=== PATIENT | male | born 1935 | race Caucasian/White ===

== ENCOUNTER 2016-10-23 14:21 | Inpatient (IN) | payer MEDICARE, MEDICAID ==
[2016-10-23] MEDS ORDERED: HYDROmorphone 2 MG/ML SDV IVPUSH ONE (14:28)
[2016-10-23] MEDS ORDERED: Albuterol/Ipratropium 3.0-0.5 MG/3 ML Neb Soln NEB ONE (14:28)
[2016-10-23] MEDS ORDERED: methylPREDNISolone Sodium Succinate 125 MG/2 ML SDV IVPUSH ONE (14:28)
[2016-10-23] MEDS: Sodium Chloride 0.9% 1,000 ML IV SCH (14:37)
[2016-10-23] MEDS ORDERED: Ondansetron 4 MG/2 ML SDV IVPUSH ONE (14:56)
--- NOTE | 2016-10-23 15:42 | EDM.PDOC ---
ED HISTORY OF PRESENT ILLNESS - General Chief Complaint: Respiratory Problem Stated Complaint: COPD Time Seen by Provider: 10/23/16 14:30 Source: Reports: Patient, EMS History Limitations: Reports: Altered mental status, Physical impairment, Respiratory distress - History of Present Illness INITIAL COMMENTS - FREE TEXT/NARRATIVE: 81 y.o.w.m with a h/o COPD was seen in the clinic and sent to the ed due to sob and RUQ abd. pain. 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 O2 wass 88% on RA. No family is present. Pt is able to talk 3 baldwin sentences. No C/P. Symptom Onset Date: 10/23/16 Symptom Onset Time: 03:00 Timing/Duration: Reports: Hour(s):, Day(s):, Getting worse, Gradual onset Severity: moderate Location, General: Reports: chest Quality: Reports: Sharp (RUQ abd. pain) Improves with: Reports: Medication Worsens with: Reports: Eating Associated Symptoms: Reports: cough, diaphoresis - Related Data Allergies/ADRs: Allergies Allergy/AdvReac Type Severity Reaction Status Date / Time aspirin Allergy Cannot Verified 10/23/16 16:40 Remember Home Meds: Home Meds Albuterol/Ipratropium [DuoNeb 3.0-0.5 MG/3 ML] 1 each INH QID 09/26/13 [History] Brinzolamide [Azopt 1% Ophth Susp] 1 drop EYELF BID 09/26/13 [History] Dutasteride [Avodart] 0.5 mg PO BEDTIME 09/26/13 [History] Metoprolol Succinate 25 mg PO DAILY 09/26/13 [History] Mirtazapine [Remeron] 15 mg PO BEDTIME 09/26/13 [History] Simvastatin 20 mg PO BEDTIME 09/26/13 [History] Travoprost [Travatan Z 0.004% Ophth Soln] 1 drop EYEBOTH BEDTIME 09/26/13 [ History] Triamterene/Hydrochlorothiazid [Triamterene-HCTZ 75-50 MG] 1 tab PO DAILY [History] Potassium Chloride [Klor-Con 10] 10 meq PO DAILY #30 tab.er 09/30/13 [Rx] Budesonide [Pulmicort] 0.5 mg IH BID 02/12/15 [History] Furosemide [Lasix] 80 mg PO DAILY 04/10/15 [History] Losartan Potassium [Cozaar] 100 mg PO DAILY 04/10/15 [History] Acetaminophen [Tylenol] 650 mg PO BEDTIME 10/23/16 [History] Ascorbate Calcium [Vitamin C] 500 mg PO DAILY 10/23/16 [History] Benzonatate 100 mg PO TID 10/23/16 [History] Dextromethorphan/guaiFENesin [Robitussin DM] 5 ml PO Q4H PRN 10/23/16 [History] Diclofenac Sodium [Voltaren 1% Gel] 1 applic TID 10/23/16 [History] Docusate Sodium [Colace] 100 mg PO DAILY 10/23/16 [History] Docusate Sodium [Colace] 200 mg PO BEDTIME 10/23/16 [History] Polyethylene Glycol 3350 [MiraLAX] 17 gm PO DAILY PRN 10/23/16 [History] amLODIPine [Norvasc] 5 mg PO DAILY 10/23/16 [History] busPIRone [Buspar] 5 mg PO BID 10/23/16 [History] Acetaminophen [Tylenol] 650 mg PO Q4H PRN 10/24/16 [History] Mag Hydrox/Al Hydrox/Simeth [Alum-Mag Hydroxide-Simeth Liq] 15 ml PO Q4H PRN 11/07 [History] Multivitamin with Minerals [Multivitamins with Minerals] 1 tab PO DAILY [History] Past Medical History Other HEENT History: both eyes done. pt wears glassess. Other Respiratory History: COLLASPSED LUNG YEARS AGO. Other Musculoskeletal History: GENERALIZED ARTHRITIS - Past Surgical History Other Musculoskeletal Surgeries/Procedures:: RIGHT HIP DONE Social & Family History - Tobacco Use Smoking Status *Q: Former Smoker Years of Tobacco use: 20 Packs/Tins Daily: 0.5 Used Tobacco, but Quit: Yes Month Tobacco Last Used: umnknown Second Hand Smoke Exposure: No - Alcohol Use Days Per Week of Alcohol Use: 0 Number of Drinks Per Day: 1 Total Drinks Per Week: 0 - Recreational Drug Use Recreational Drug Use: No - Living Situation & Occupation Living situation: Reports: Occupation: retired ED ROS GENERAL - Review of Systems Review Of Systems: Unable To Obtain ED EXAM, GENERAL - Physical Exam Exam: See Below Exam Limited By: Respiratory distress General Appearance: alert, moderate distress, obese Ears: normal external exam, normal canal, hearing grossly normal, normal TMs Ear Exam: bilateral ear: auricle normal, canal normal, TM normal Nose: normal inspection, normal mucosa, no blood Throat/Mouth: Other (dry mucosal membrane) Head: atraumatic, normocephalic Neck: normal inspection, supple, non-tender, full range of motion Respiratory/Chest: respiratory distress, decreased breath sounds, rhonchi, accessory muscle use, retractions, prolonged expiration Cardiovascular: normal peripheral pulses, regular rate, rhythm, no edema, no JVD GI/Abdominal: tender (RUQ of abdomen) (Male) Exam: No hernia, Deferred Rectal (Males) Exam: Deferred Back Exam: normal inspection, full range of motion Extremities: normal inspection, normal range of motion, non-tender Neurological: alert, CN II-XII intact, confused Psychiatric: normal affect, normal mood Skin Exam: Warm, Dry, Intact, Normal color, No rash Lymphatic: no adenopathy EKG INTERPRETATION EKG Date: 10/23/16 Time: 16:05 Rhythm: NSR Rate (beats/min): 91 [place]: normal P-wave: present QRS: normal ST-T: normal QT: normal Comparison: NA - no prior EKG Course - Vital Signs Text/Narrative:: 81 y.o.w.m with a h/o COPD was seen in the clinic and sent to the ed due to sob and RUQ abd. pain. 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 O2 wass 88% on RA. No family is present. Pt is able to talk 3 baldwin sentences. No C/P. Pt is on 3 liter home O2. Paper say DNR/DNI. Pt requested full code however at this time. Labs: WBC 23K Nl LFT no left shift Imaging: CXR port. Infiltrate ves scar tissue RLL of lung. 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 Impression: COPD exacerbation, RUQ abd. pain(severe), Chronic bronchitis, Infiltrate RLL of lung vs scar tissue. Leucytosis Tx: Duoneb, Solumedrol, Dilaudid 1 mg, Zofran, O2 4 liters, Normal Saline Consultation: Dr. Hunt, Hospitalist accepted the pt for admission Plan: Admit to M/S tele Last Recorded V/S: Last Vital Signs Temp 36.7 C 10/24/16 19:57 Pulse 73 10/24/16 19:57 Resp 19 10/24/16 19:57 BP 107/52 L 10/24/16 19:57 Pulse Ox 96 10/24/16 19:57 - Orders/Labs/Meds Orders: Medication Orders Acetaminophen (Tylenol Extra Strength) 1,000 mg PO Q8H PRN PRN Reason: Pain Last Admin: 10/24/16 13:37 Dose: 1,000 mg Admin: 10/23/16 22:50 Dose: 1,000 mg Al Hydroxide/Mg Hydroxide (Mag-Al Susp) 15 ml PO Q4H PRN PRN Reason: epigastric discomfort Albuterol/Ipratropium (Duoneb 3.0-0.5 Mg/3 Ml) 3 ml NEB Q4H PRN PRN Reason: Dyspnea Last Admin: 10/24/16 13:58 Dose: 3 ml Albuterol/Ipratropium (Duoneb 3.0-0.5 Mg/3 Ml) 3 ml INH QIDRT [facility] Last Admin: 10/24/16 15:15 Dose: 3 ml Admin: 10/24/16 11:00 Dose: 3 ml Admin: 10/24/16 08:32 Dose: 3 ml Amlodipine Besylate (Norvasc) 5 mg PO DAILY [facility] Last Admin: 10/24/16 08:57 Dose: 5 mg Benzonatate (Tessalon Perles) 100 mg PO TID PRN PRN Reason: Cough Last Admin: 10/24/16 12:48 Dose: 100 mg Budesonide (Pulmicort) 0.5 mg INH BID [facility] Last Admin: 10/24/16 08:34 Dose: 0.5 mg Admin: 10/23/16 21:16 Dose: 0.5 mg Buspirone HCl (Buspar) 5 mg PO BID [facility] Docusate Sodium (Colace) 200 mg PO BEDTIME [facility] Dorzolamide HCl (Trusopt 2% Ophth Soln) 0 ml EYELF BID [facility] Last Admin: 10/24/16 08:57 Dose: 1 drop Dutasteride (Avodart) 0.5 mg PO BEDTIME [facility] Last Admin: 10/23/16 22:04 Dose: 0.5 mg Furosemide (Lasix) 80 mg PO Q48H [facility] Guaifenesin/Phenylephrine HCl (Robitussin Dm) 5 ml PO Q4H PRN PRN Reason: Cough Last Admin: 10/24/16 13:37 Dose: 5 ml Admin: 10/23/16 23:26 Dose: 5 ml Sodium Chloride (Normal Saline) 1,000 mls @ 125 mls/hr IV ASDIRECTED [facility] Last Admin: 10/24/16 16:13 Dose: 125 mls/hr Infusion: 10/24/16 16:13 Dose: 125 mls/hr Admin: 10/24/16 08:32 Dose: 125 mls/hr Infusion: 10/24/16 08:20 Dose: 125 mls/hr Admin: 10/24/16 00:20 Dose: 125 mls/hr Infusion: 10/23/16 22:37 Dose: 125 mls/hr Admin: 10/23/16 14:37 Dose: 125 mls/hr Ceftriaxone Sodium 1 gm/ (Sodium Chloride) 50 mls @ 100 mls/hr IV Q24H [facility] Last Admin: 10/24/16 19:49 Dose: 100 mls/hr Azithromycin 500 mg/ Sodium (Chloride) 250 mls @ 250 mls/hr IV Q24H [facility] Stop: 10/25/16 19:59 Last Admin: 10/24/16 18:30 Dose: 250 mls/hr Losartan Potassium (Cozaar) 100 mg PO DAILY [facility] Last Admin: 10/24/16 08:56 Dose: 100 mg Methylprednisolone Sodium Succinate (Solu-Medrol) 125 mg IVPUSH Q8H [facility] Last Admin: 10/24/16 16:09 Dose: 125 mg Admin: 10/24/16 08:56 Dose: 125 mg Admin: 10/23/16 23:27 Dose: 125 mg Admin: 10/23/16 19:08 Dose: Not Given Metoprolol Succinate (Toprol Xl) 25 mg PO DAILY [facility] Last Admin: 10/24/16 08:57 Dose: 25 mg Mirtazapine (Remeron) 15 mg PO BEDTIME [facility] Last Admin: 10/23/16 21:13 Dose: 15 mg Potassium Chloride (Klor-Con 10) 10 meq PO DAILY [facility] Last Admin: 10/24/16 08:56 Dose: 10 meq Simvastatin (Zocor) 20 mg PO BEDTIME [facility] Last Admin: 10/23/16 21:14 Dose: 20 mg Sodium Chloride (Saline Flush) 10 ml FLUSH ASDIRECTED PRN PRN Reason: Keep Vein Open Travoprost (Travatan Z 0.004% Ophth Soln) 0 ml EYEBOTH BEDTIME [facility] Last Admin: 10/23/16 22:05 Dose: 1 drop Triamterene/HCTZ (Maxzide 50-75 Mg) 1 each PO DAILY [facility] Last Admin: 10/24/16 08:56 Dose: 1 each Labs: Laboratory Tests 10/23/16 10/23/16 10/23/16 Range/Units 14:40 14:40 14:40 WBC 23.8 H (4.5-12.0) X10-3/uL RBC 4.91 (4.30-5.75) x10(6)uL Hgb 13.1 (11.5-15.5) g/dL Hct 40.8 (30.0-51.3) % MCV 83.1 (80-96) fL MCH 26.6 L (27.7-33.6) pg MCHC 32.0 L (32.2-35.4) g/dL RDW 14.4 (11.5-15.5) % Plt Count 227 (125-369) X10(3)uL MPV 8.1 (7.4-10.4) fL Add Manual Diff Yes Neutrophils % (Manual) 83 H (46-82) % Band Neutrophils % 3 (0-6) % Lymphocytes % (Manual) 5 L (13-37) % Monocytes % (Manual) 9 (4-12) % Sodium 137 (135-145) mmol/L Potassium 4.1 (3.5-5.3) mmol/L Chloride 89 L* (100-110) mmol/L Carbon Dioxide 40 H* (23-29) mmol/L BUN 52 H (8-23) mg/dL Creatinine 1.5 H (0.6-1.3) mg/dL Est Cr Clr Drug Dosing TNP Estimated GFR (MDRD) 45 L (>60) BUN/Creatinine Ratio 34.7 H (9-20) Glucose 132 H (80-116) mg/dL Lactic Acid 1.4 (0.5-2.2) mmol/L Calcium 9.8 (8.6-10.2) mg/dL Total Bilirubin 0.6 (0.1-1.3) mg/dL Direct Bilirubin 0.1 (0.1-0.2) mg/dL AST 25 D (5-27) IU/L ALT 18 D (14-26) IU/L Alkaline Phosphatase 80 (56-112) IU/L Troponin I (0.02-0.06) NG/ML Total Protein 7.7 (6.0-8.0) g/dL Albumin 4.0 (3.2-4.6) g/dL Amylase 36 (28-100) U/L 10/23/16 Range/Units 14:40 WBC (4.5-12.0) X10-3/uL RBC (4.30-5.75) x10(6)uL Hgb (11.5-15.5) g/dL Hct (30.0-51.3) % MCV (80-96) fL MCH (27.7-33.6) pg MCHC (32.2-35.4) g/dL RDW (11.5-15.5) % Plt Count (125-369) X10(3)uL MPV (7.4-10.4) fL Add Manual Diff Neutrophils % (Manual) (46-82) % Band Neutrophils % (0-6) % Lymphocytes % (Manual) (13-37) % Monocytes % (Manual) (4-12) % Sodium (135-145) mmol/L Potassium (3.5-5.3) mmol/L Chloride (100-110) mmol/L Carbon Dioxide (23-29) mmol/L BUN (8-23) mg/dL Creatinine (0.6-1.3) mg/dL Est Cr Clr Drug Dosing Estimated GFR (MDRD) (>60) BUN/Creatinine Ratio (9-20) Glucose (80-116) mg/dL Lactic Acid (0.5-2.2) mmol/L Calcium (8.6-10.2) mg/dL Total Bilirubin (0.1-1.3) mg/dL Direct Bilirubin (0.1-0.2) mg/dL AST (5-27) IU/L ALT (14-26) IU/L Alkaline Phosphatase (56-112) IU/L Troponin I 0.02 (0.02-0.06) NG/ML Total Protein (6.0-8.0) g/dL Albumin (3.2-4.6) g/dL Amylase (28-100) U/L Meds: Medications Generic Name Dose Route Start Last Admin Trade Name Freq PRN Reason Stop Dose Admin Acetaminophen 1,000 mg 10/23/16 17:36 10/24/16 13:37 Tylenol Extra Strength PO 1,000 mg Q8H PRN Administration Pain Al Hydroxide/Mg Hydroxide 15 ml 10/24/16 15:21 Mag-Al Susp PO Q4H PRN epigastric discomfort Albuterol/Ipratropium 3 ml 10/23/16 19:21 10/24/16 13:58 Duoneb 3.0-0.5 Mg/3 Ml NEB 3 ml Q4H PRN Administration Dyspnea Albuterol/Ipratropium 3 ml 10/24/16 08:00 10/24/16 15:15 Duoneb 3.0-0.5 Mg/3 Ml INH 3 ml QIDRT [facility] Administration Amlodipine Besylate 5 mg 10/24/16 09:00 10/24/16 08:57 Norvasc PO 5 mg DAILY [facility] Administration Benzonatate 100 mg 10/23/16 17:36 10/24/16 12:48 Tessalon Perles PO 100 mg TID PRN Administration Cough Budesonide 0.5 mg 10/23/16 21:00 10/24/16 08:34 Pulmicort INH 0.5 mg BID [facility] Administration Buspirone HCl 5 mg 10/24/16 21:00 Buspar PO BID [facility] Docusate Sodium 200 mg 10/24/16 21:00 Colace PO BEDTIME [facility] Dorzolamide HCl 0 ml 10/24/16 09:00 10/24/16 08:57 Trusopt 2% Ophth Soln EYELF 1 drop BID [facility] Administration Dutasteride 0.5 mg 10/23/16 21:00 10/23/16 22:04 Avodart PO 0.5 mg BEDTIME [facility] Administration Furosemide 80 mg 10/25/16 09:00 Lasix PO Q48H [facility] Guaifenesin/Phenylephrine HCl 5 ml 10/23/16 22:57 10/24/16 13:37 Robitussin Dm PO 5 ml Q4H PRN Administration Cough Sodium Chloride 1,000 mls @ 125 mls/hr 10/23/16 14:30 10/24/16 16:13 Normal Saline IV 125 mls/hr ASDIRECTED [facility] Administration Ceftriaxone Sodium 1 gm/ 50 mls @ 100 mls/hr 10/24/16 20:00 10/24/16 19:49 Sodium Chloride IV 100 mls/hr Q24H [facility] Administration Azithromycin 500 mg/ Sodium 250 mls @ 250 mls/hr 10/24/16 19:00 10/24/16 18: 30 Chloride IV 10/25/16 19:59 250 mls/hr Q24H [facility] Administration Losartan Potassium 100 mg 10/24/16 09:00 10/24/16 08:56 Cozaar PO 100 mg DAILY [facility] Administration Methylprednisolone Sodium Succinate 125 mg 10/23/16 16:15 10/24/16 16:09 Solu-Medrol IVPUSH 125 mg Q8H [facility] Administration Metoprolol Succinate 25 mg 10/24/16 09:00 10/24/16 08:57 Toprol Xl PO 25 mg DAILY [facility] Administration Mirtazapine 15 mg 10/23/16 21:00 10/23/16 21:13 Remeron PO 15 mg BEDTIME [facility] Administration Potassium Chloride 10 meq 10/24/16 09:00 10/24/16 08:56 Klor-Con 10 PO 10 meq DAILY [facility] Administration Simvastatin 20 mg 10/23/16 21:00 10/23/16 21:14 Zocor PO 20 mg BEDTIME [facility] Administration Sodium Chloride 10 ml 10/23/16 16:09 Saline Flush FLUSH ASDIRECTED PRN Keep Vein Open Travoprost 0 ml 10/23/16 21:00 10/23/16 22:05 Travatan Z 0.004% Ophth Soln EYEBOTH 1 drop BEDTIME [facility] Administration Triamterene/HCTZ 1 each 10/24/16 09:00 10/24/16 08:56 Maxzide 50-75 Mg PO 1 each DAILY [facility] Administration Discontinued Medications Generic Name Dose Route Start Last Admin Trade Name Freq PRN Reason Stop Dose Admin Albuterol 2.5 mg 10/23/16 16:15 10/23/16 22:29 Proventil Neb Soln NEB Not Given Q4H [facility] Albuterol/Ipratropium 3 ml 10/23/16 14:28 10/23/16 14:30 Duoneb 3.0-0.5 Mg/3 Ml NEB 10/23/16 14:29 3 ml ONETIME ONE Administration Albuterol/Ipratropium ml 10/23/16 21:00 Duoneb 3.0-0.5 Mg/3 Ml INH QID [facility] Albuterol/Ipratropium 3 ml 10/23/16 21:00 10/23/16 21:15 Duoneb 3.0-0.5 Mg/3 Ml INH 3 ml QID [facility] Administration Amlodipine Besylate 10 mg 10/24/16 09:00 Norvasc PO DAILY [facility] Azithromycin Confirm 10/23/16 18:55 10/23/16 19:15 Zithromax Administered 10/23/16 18:56 Not Given Dose 500 mg IV .STK-MED ONE Brinzolamide 0 ml 10/23/16 21:00 10/23/16 22:14 Azopt 1% Ophth Susp EYELF Not Given BID [facility] Docusate Sodium 200 mg 10/23/16 17:36 10/23/16 22:51 Colace PO 200 mg BID PRN Administration Constipation Furosemide 80 mg 10/24/16 09:00 Lasix PO DAILY [facility] Hydromorphone HCl 1 mg 10/23/16 14:28 10/23/16 14:40 Dilaudid IVPUSH 10/23/16 14:29 1 mg ONETIME ONE Administration Azithromycin 500 mg/ Sodium 250 mls @ 250 mls/hr 10/23/16 17:34 10/23/16 18: 59 Chloride IV 10/23/16 18:33 250 mls/hr ONETIME ONE Administration Ceftriaxone Sodium 1 gm/ 50 mls @ 100 mls/hr 10/23/16 18:00 10/23/16 20:43 Sodium Chloride IV 100 mls/hr Q24H [facility] Administration Methylprednisolone Sodium Succinate 125 mg 10/23/16 14:28 10/23/16 14:42 Solu-Medrol IVPUSH 10/23/16 14:29 125 mg ONETIME ONE Administration Non-Formulary Medication 2 puff 10/23/16 17:36 Albuterol/Ipratropium [Combivent] INH BID PRN Dyspnea Non-Formulary Medication 2 each 10/23/16 21:00 10/23/16 23:17 Guaifenesin/Dextromethorphan [Mucinex Dm Er 1,200-60 Mg] PO Not Given BID [facility] Ondansetron HCl 8 mg 10/23/16 14:56 10/23/16 15:27 Zofran IVPUSH 10/23/16 14:57 8 mg ONETIME ONE Administration Pantoprazole Sodium 40 mg 10/23/16 16:52 10/23/16 18:55 Protonix Iv IVPUSH 10/23/16 16:53 40 mg ONETIME ONE Administration Pantoprazole Sodium Confirm 10/23/16 18:58 10/23/16 19:15 Protonix Iv Administered 10/23/16 18:59 Not Given Dose 40 mg .ROUTE .STK-MED ONE Pseudoephedrine HCl 120 mg 10/23/16 17:36 Sudafed 12 Hour PO BID PRN Congestion Departure - Departure Time of Disposition: 20:11 Disposition: Admitted As Inpatient 66 Condition: fair Clinical Impression: COPD (chronic obstructive pulmonary disease) Qualifiers: COPD type: COPD with acute exacerbation Qualified Code(s): J44.1 - Chronic obstructive pulmonary disease with (acute) exacerbation
--- NOTE | 2016-10-23 15:45 | CR ---
INDICATION: Short of breath, COPD. CHEST: AP portable upright view of the chest was obtained. Poor inspiration emphasizes the markings, which are somewhat heavy in the mid lung pepe and lung bases, especially on the right, making it difficult to exclude patchy bronchopneumonia in those areas. However, a definite consolidating pneumonia or effusion was not seen. The heart appeared enlarged, but is emphasized by the poor inspiration. The aorta is tortuous with calcification in the arch. Dextroconcave scoliosis upper middle thoracic spine is noted of mild degree. The lungs appear to be somewhat hyperaerated, raising question of COPD. IMPRESSION: 1. Heavy markings emphasized by poor inspiration mid lung field on the right and both lung bases make it difficult to exclude areas of patchy bronchopneumonia. Full inspiration PA and lateral views recommended when clinically possible for further evaluation. 2. ASHD. 3. Probable COPD. Report was given by phone to Dr. Matta at 1525 hours, 10/23/2016. MTDD
[2016-10-23] MEDS ORDERED: Sodium Chloride 0.9% 10 ML Syringe FLUSH PRN (16:09)
[2016-10-23] MEDS ORDERED: Albuterol 0.083% 2.5 MG/3 ML Neb Soln NEB SCH (16:15)
[2016-10-23] MEDS ORDERED: Pantoprazole 40 MG Vial IVPUSH ONE (16:52)
[2016-10-23] MEDS ORDERED: Azithromycin 500 MG in Sodium Chloride 0.9% 250 ML IV ONE (17:34)
[2016-10-23] MEDS ORDERED: Pseudoephedrine 120 MG Tab.ER PO PRN (17:36)
[2016-10-23] MEDS ORDERED: Non-Formulary Medication 1 Each (Albuterol/Ipratropium [Combivent] 2 PUFF) INH PRN (17:36)
[2016-10-23] MEDS ORDERED: Docusate Sodium 100 MG Cap PO PRN (17:36)
--- NOTE | 2016-10-23 17:46 | PCM.HP ---
H&P History of Present Illness - General Date of Service: 10/23/16 Admit Problem/Dx: Admission Diagnosis/Problem Admission Diagnosis/Problem COPD, Moderate chronic obstructive pulmonary disease Source of Information: Patient History Limitations: Reports: No limitations - History of Present Illness Initial Comments - Free Text/Narative: This is an 81-year-old male patient that is a resident of [facility] in [facility] [place]. He states he's had 3-4 day history of upper abdominal pain, shortness of breath, green and or orange sputum when he coughs. He's tried some cough medicine and that hasn't helped. He states he is only short of breath and uses oxygen. He denies having COPD. He denies chest pain, fevers , chills, ear pain, sore throat. He denies nausea, vomiting, hematochezia, melena, diarrhea. He states he is alert hospitably he moved his bowels this morning. - Related Data Allergies/Adverse Reactions: Allergies Allergy/AdvReac Type Severity Reaction Status Date / Time aspirin Allergy Cannot Verified 10/23/16 16:40 Remember Home Medications: Home Meds Acetaminophen [Acetaminophen Extra Strength] 1,000 mg PO Q8HR PRN 09/26/13 [ History] Albuterol/Ipratropium [Combivent] 2 puff INH BID PRN 09/26/13 [History] Albuterol/Ipratropium [DuoNeb 3.0-0.5 MG/3 ML] 1 each INH QID 09/26/13 [History] Brinzolamide [Azopt 1% Ophth Susp] 1 drop EYELF BID 09/26/13 [History] Dutasteride [Avodart] 0.5 mg PO BEDTIME 09/26/13 [History] Metoprolol Succinate 25 mg PO DAILY 09/26/13 [History] Mirtazapine [Remeron] 15 mg PO BEDTIME 09/26/13 [History] Simvastatin 20 mg PO BEDTIME 09/26/13 [History] Travoprost [Travatan Z 0.004% Ophth Soln] 1 drop EYEBOTH BEDTIME 09/26/13 [ History] Triamterene/Hydrochlorothiazid [Triamterene-HCTZ 75-50 MG] 1 tab PO DAILY [History] amLODIPine [Norvasc] 10 mg PO DAILY 09/26/13 [History] Benzonatate [Tessalon Perles] 100 mg PO TID PRN #30 cap 09/30/13 [Rx] Docusate Sodium [Colace] 200 mg PO BID PRN #0 09/30/13 [Rx] Potassium Chloride [Klor-Con 10] 10 meq PO DAILY #30 tab.er 09/30/13 [Rx] Budesonide [Pulmicort] 0.5 mg IH BID 02/12/15 [History] Cefdinir [Omnicef] 300 mg PO BID #10 cap 04/10/15 [Rx] Cefdinir [Omnicef] 300 mg PO BID #28 cap 04/10/15 [Rx] Furosemide [Lasix] 80 mg PO DAILY 04/10/15 [History] Losartan Potassium [Cozaar] 100 mg PO DAILY 04/10/15 [History] Pseudoephedrine HCl [Pseudoephedrine ER] 120 mg PO BID PRN #28 tablet.er [Rx] guaiFENesin/Dextromethorphan [Mucinex DM ER 1,200-60 MG] 2 each PO BID #40 tbmp.12hr 04/10/15 [Rx] predniSONE [Prednisone] 20 mg PO DAILY 04/10/15 [History] predniSONE [Prednisone] 20 mg PO DAILY #14 tablet 04/10/15 [Rx] Past Medical History HEENT History: Reports: Cataract, Glaucoma Other HEENT History: both eyes done. pt wears glassess. Cardiovascular History: Reports: High cholesterol, Hypertension Respiratory History: Reports: COPD Other Respiratory History: COLLASPSED LUNG YEARS AGO. Genitourinary History: Reports: BPH, Prostate disorder Musculoskeletal History: Reports: Arthritis Other Musculoskeletal History: GENERALIZED ARTHRITIS Endocrine/Metabolic History: Reports: None Dermatologic History: Reports: Other (see below) Other Dermatologic History: Hx of skin ulcers to coccyx recently - Past Surgical History Other Musculoskeletal Surgeries/Procedures:: RIGHT HIP DONE Social & Family History - Tobacco Use Smoking Status *Q: Former Smoker Years of Tobacco use: 20 Packs/Tins Daily: 0.5 Used Tobacco, but Quit: Yes Month Tobacco Last Used: umnknown Second Hand Smoke Exposure: No - Caffeine Use Caffeine Use: Reports: Coffee - Alcohol Use Days Per Week of Alcohol Use: 0 Number of Drinks Per Day: 1 Total Drinks Per Week: 0 - Recreational Drug Use Recreational Drug Use: No - Living Situation & Occupation Living situation: Reports: Occupation: retired H&P Review of Systems - Review of Systems: Review Of Systems: See Below General: Reports: no symptoms HEENT: Reports: no symptoms Pulmonary: Reports: shortness of breath, cough, sputum. Denies: wheezing, pleuritic chest pain Cardiovascular: Reports: no symptoms Gastrointestinal: Reports: Abdominal pain, Constipation. Denies: Black stool, Bloody stool, Diarrhea, Hematochezia, Melena, Vomiting Genitourinary: Reports: no symptoms Musculoskeletal: Reports: no symptoms Skin: Reports: no symptoms Psychiatric: Reports: no symptoms Neurological: Reports: no symptoms Hematologic/Lymphatic: Reports: no symptoms Immunologic: Reports: no symptoms Exam - Exam Exam: See Below - Vital Signs Vital Signs: Last Vital Signs Temp 100.0 F 10/23/16 15:32 Pulse 89 10/23/16 15:32 Resp 28 H 10/23/16 15:32 BP 108/68 10/23/16 15:32 Pulse Ox 92 L 10/23/16 15:32 Weight: 225 lb - Exam Quality Assessment: supplemental oxygen General: alert, oriented, cooperative HEENT: PERRLA, Conjunctiva clear, EACs clear, EOMI, Hearing intact, Mucosa moist & pink, Posterior pharynx clear, TMs clear Neck: supple, trachea midline. No: carotid bruit Lungs: Normal respiratory effort, Rales (Right base). No: Decreased breath sounds Cardiovascular: regular rate, regular rhythm. No: normal S1, normal S2, systolic murmur, diastolic murmur Abdomen: soft, organomegaly, tenderness (Epigastrium left upper quadrant), absent bowel sounds. No: guarding, rigidity, rebound Back Exam: normal inspection, full range of motion, NT Extremities: normal inspection. No: edema Skin: warm, dry, intact Neuro Extensive - Mental Status: alert, oriented x3, normal mood/affect, normal cognition Psychiatric: alert, normal affect, normal mood - Patient Data Result Diagrams: 10/23/16 14:40 10/23/16 14:40 *Q Meaningful Use (ADM) - VTE *Q VTE Criteria *Q: - Stroke *Q Stroke Criteria *Q: - AMI *Q AMI Criteria *Q: - Problem List (1) Abdominal pain SNOMED Code(s): 83789220 ICD Code: R10.9 - UNSPECIFIED ABDOMINAL PAIN Status: Acute Current Visit : Yes (2) COPD exacerbation SNOMED Code(s): 111899065, 932957525 ICD Code: J44.1 - CHRONIC OBSTRUCTIVE PULMONARY DISEASE W (ACUTE) EXACERBATION Status: Acute Priority: High Current Visit: No Problem Details: Patient has done well with methylprednisolone tapering. switch over to prednisone and continue taper. SVN and inhalers continue. Has been faithful with Insentive Spirometry. Continues on O2Nc and dyspnec with exertion improving. States will feel better when he gets home and sees his friends. Continue PPI due to steroids for GI protection. (3) Pneumonia, bacterial SNOMED Code(s): 32994598 ICD Code: J15.9 - UNSPECIFIED BACTERIAL PNEUMONIA Status: Acute Priority : High Current Visit: No Problem Details: Switch to oral to complete 10 course per renal function. Problem List Initiated/Reviewed/Updated: Yes Orders Last 24hrs: Active Orders 24 hr Category Date Time Status Telemetry Monitoring [Cardiac Monitoring] [RC] .As Care 10/23/16 16:55 Active Directed Clear Liquid Diet [DIET] Diet 10/23/16 Breakfast Ordered ABG [BLOOD GAS ARTERIAL] [BG] Routine Lab 10/23/16 17:39 Ordered CBC WITH AUTO DIFF [HEME] AM Lab 10/24/16 05:11 Ordered COMPREHENSIVE METABOLIC PN,CMP [CHEM] AM Lab 10/24/16 05:11 Ordered CULTURE BLOOD [BC] Urgent Lab 10/23/16 17:39 Ordered CULTURE BLOOD [BC] Urgent Lab 10/23/16 17:39 Ordered CULTURE SPUTUM + SMEAR [RM] Routine Lab 10/23/16 17:40 Uncollected Acetaminophen [Tylenol Extra Strength] Med 10/23/16 17:36 Ordered 1,000 mg PO Q8HR PRN Albuterol [Proventil Neb Soln] Med 10/23/16 16:15 Active 2.5 mg NEB Q4H Albuterol/Ipratropium [Combivent] Med 10/23/16 17:36 Ordered 2 puff INH BID PRN Albuterol/Ipratropium [DuoNeb 3.0-0.5 MG/3 ML] Med 10/23/16 21:00 Ordered 1 each INH QID Azithromycin [Zithromax] 500 mg Med 10/23/16 17:34 Ordered Sodium Chloride 0.9% [Normal Saline] 250 ml IV ONETIME Benzonatate [Tessalon Perles] Med 10/23/16 17:36 Ordered 100 mg PO TID PRN Brinzolamide [Azopt 1% Ophth Susp] Med 10/23/16 21:00 Ordered 1 drop EYELF BID Budesonide [Pulmicort] Med 10/23/16 21:00 Ordered 0.5 mg INH BID Docusate Sodium [Colace] Med 10/23/16 17:36 Ordered 200 mg PO BID PRN Dutasteride [Avodart] Med 10/23/16 21:00 Ordered 0.5 mg PO BEDTIME Furosemide [Lasix] Med 10/24/16 09:00 Ordered 80 mg PO DAILY HCTZ/Triamterene [Maxzide 50-75 MG] Med 10/24/16 09:00 Ordered 1 tab PO DAILY Losartan [Cozaar] Med 10/24/16 09:00 Ordered 100 mg PO DAILY Metoprolol Succinate [Toprol XL] Med 10/24/16 09:00 Ordered 25 mg PO DAILY Mirtazapine [Remeron] Med 10/23/16 21:00 Ordered 15 mg PO BEDTIME Potassium Chloride [Klor-Con 10] Med 10/24/16 09:00 Ordered 10 meq PO DAILY Pseudoephedrine [Sudafed 12 Hour] Med 10/23/16 17:36 Ordered 120 mg PO BID PRN Simvastatin [Zocor] Med 10/23/16 21:00 Ordered 20 mg PO BEDTIME Travoprost [Travatan Z 0.004% Ophth Soln] Med 10/23/16 21:00 Ordered 1 drop EYEBOTH BEDTIME amLODIPine [Norvasc] Med 10/24/16 09:00 Ordered 10 mg PO DAILY cefTRIAXone [Rocephin] 1 gm Med 10/23/16 18:00 Ordered Sodium Chloride 0.9% [Normal Saline] 50 ml IV Q24H guaiFENesin/Dextromethorphan [Mucinex DM ER 1,200-60 MG Med 10/23/16 21:00 Ordered ] 2 each PO BID methylPREDNISolone Sod Succ [Solu-MEDROL] Med 10/23/16 16:15 Active 125 mg IVPUSH Q8H Blood Culture x2 Reflex Set [OM.PC] Urgent Oth 10/23/16 17:38 Ordered Medication Orders Acetaminophen (Tylenol Extra Strength) 1,000 mg PO Q8HR PRN PRN Reason: Pain Albuterol (Proventil Neb Soln) 2.5 mg NEB Q4H MARGARET Albuterol/Ipratropium (Duoneb 3.0-0.5 Mg/3 Ml) ml INH QID MARGARET Amlodipine Besylate (Norvasc) 10 mg PO DAILY MARGARET Benzonatate (Tessalon Perles) 100 mg PO TID PRN PRN Reason: Cough Brinzolamide (Azopt 1% Ophth Susp) ml EYELF BID MARGARET Budesonide (Pulmicort) 0.5 mg INH BID MARGARET Dutasteride (Avodart) 0.5 mg PO BEDTIME MARGARET Furosemide (Lasix) 80 mg PO DAILY MARGARET Sodium Chloride (Normal Saline) 1,000 mls @ 125 mls/hr IV ASDIRECTED MARGARET Last Admin: 10/23/16 14:37 Dose: 125 mls/hr Azithromycin 500 mg/ Sodium (Chloride) 250 mls @ 250 mls/hr IV ONETIME ONE Stop: 10/23/16 18:33 Ceftriaxone Sodium 1 gm/ (Sodium Chloride) 50 mls @ 100 mls/hr IV Q24H [facility] Losartan Potassium (Cozaar) 100 mg PO DAILY [facility] Methylprednisolone Sodium Succinate (Solu-Medrol) 125 mg IVPUSH Q8H [facility] Metoprolol Succinate (Toprol Xl) 25 mg PO DAILY [facility] Mirtazapine (Remeron) 15 mg PO BEDTIME MARGARET Non-Formulary Medication (Albuterol/Ipratropium [Combivent]) 2 puff INH BID PRN PRN Reason: Dyspnea Non-Formulary Medication (Docusate Sodium [Colace]) 200 mg PO BID PRN PRN Reason: Constipation Non-Formulary Medication (Guaifenesin/Dextromethorphan [Mucinex Dm Er 1,200-60 Mg]) 2 each PO BID MARGARET Potassium Chloride (Klor-Con 10) 10 meq PO DAILY MARGARET Pseudoephedrine HCl (Sudafed 12 Hour) 120 mg PO BID PRN PRN Reason: Congestion Simvastatin (Zocor) 20 mg PO BEDTIME MARGARET Sodium Chloride (Saline Flush) 10 ml FLUSH ASDIRECTED PRN PRN Reason: Keep Vein Open Travoprost (Travatan Z 0.004% Ophth Soln) ml EYEBOTH BEDTIME MARGARET Triamterene/HCTZ (Maxzide 50-75 Mg) each PO DAILY MARGARET Assessment/Plan Comment:: 1. Admit the patient to telemetry and inpatient. 2. Solu-Medrol, Rocephin, Zithromax, blood cultures, sputum cultures. 3. Continue most of his home meds. 4. Nebulizer treatments every 4 hours and when necessary. 5. O2 to keep saturations between 88-92 percent. 6. ABGs. 7. Clear liquids
[2016-10-23] MEDS ORDERED: cefTRIAXone 1 GM in Sodium Chloride 0.9% 50 ML IV SCH (18:00)
[2016-10-23] MEDS ORDERED: Albuterol/Ipratropium 3.0-0.5 MG/3 ML Neb Soln NEB SCH (18:00)
[2016-10-23] MEDS ORDERED: Azithromycin 500 MG AdvVial IV ONE (18:55)
[2016-10-23] MEDS ORDERED: Pantoprazole 40 MG Vial ONE (18:58)
[2016-10-23] MEDS: methylPREDNISolone Sodium Succinate 125 MG/2 ML SDV IVPUSH SCH ×2 (19:08→23:27)
[2016-10-23] MEDS ORDERED: Albuterol/Ipratropium 3.0-0.5 MG/3 ML Neb Soln INH SCH ×2 (21:00)
[2016-10-23] MEDS: Mirtazapine 15 MG Tab PO SCH (21:13)
[2016-10-23] MEDS: Simvastatin 20 MG Tab PO SCH (21:14)
[2016-10-23] MEDS: Budesonide 0.5 MG/2 ML Neb Susp INH SCH (21:16)
[2016-10-23] MEDS: Dutasteride 0.5 MG Cap PO SCH (22:04)
[2016-10-23] MEDS: Acetaminophen 500 MG Tab PO PRN (22:50)
[2016-10-23] MEDS: guaiFENesin/Dextromethorphan 100-10 MG/5 ML Soln 5 ML Cup PO PRN (23:26)
[2016-10-24] MEDS: Sodium Chloride 0.9% 1,000 ML IV SCH ×3 (00:20→16:13)
[2016-10-24] MEDS: Albuterol/Ipratropium 3.0-0.5 MG/3 ML Neb Soln INH SCH ×4 (08:32→20:17)
[2016-10-24] MEDS: Budesonide 0.5 MG/2 ML Neb Susp INH SCH ×2 (08:34→20:17)
[2016-10-24] MEDS: Losartan 100 MG Tab PO SCH (08:56)
[2016-10-24] MEDS: methylPREDNISolone Sodium Succinate 125 MG/2 ML SDV IVPUSH SCH ×3 (08:56→23:49)
[2016-10-24] MEDS: Potassium Chloride 10 MEQ Tab.ER PO SCH (08:56)
[2016-10-24] MEDS: Hydrochlorothiazide/Triamterene 50-75 MG Tab PO SCH (08:56)
[2016-10-24] MEDS: Metoprolol Succinate 25 MG Tab.ER PO SCH (08:57)
[2016-10-24] MEDS: amLODIPine 5 MG Tab PO SCH (08:57)
[2016-10-24] MEDS: Dorzolamide 2% Ophth Soln 10 ML Bottle EYELF SCH ×2 (08:57→20:18)
[2016-10-24] MEDS ORDERED: Furosemide 80 MG Tab PO SCH (09:00)
[2016-10-24] MEDS ORDERED: amLODIPine 10 MG Tab PO SCH (09:00)
--- NOTE | 2016-10-24 12:27 | PN ---
DATE SEEN: 10/24/2016 SUBJECTIVE: This is an 81-year-old male with a longstanding history of oxygen- dependent COPD and recent diagnosis of pneumonia, who is seen today for followup. He has noticed some mild improvement in his respiratory discomfort. He is coughing up large amount of yellow orange sputum. He is complaining because he does not think he has a right glasses. He says these were bifocals and when I pointed out that he does in fact have bifocals lot. He agreed that they probably wears glasses. He is concerned because he was not getting much to eat and is hungry and says he cannot eat any bread; however, because he is trying to lose weight. Denies any fever, chills, or hemoptysis. He has had no chest pain. Denies any nausea, vomiting, or diarrhea. MEDICATIONS: Reviewed. ALLERGIES: Reviewed all of which are accurate. OBJECTIVE: GENERAL: He appears to be in no acute distress. VITAL SIGNS: He is now afebrile. Blood pressure 107/50, pulse is 85, and regular respirations were 16 and unlabored, O2 saturation was 95% and he is getting 3 L of oxygen. HEENT: Unremarkable. Mucous membranes are pink and moist. There is no jugular venous distention. CHEST: Revealed a prolonged expiratory phase bilaterally with a few crackles at both bases and occasional end-expiratory wheeze was noted bilaterally, but this was cleared with cough. CARDIOVASCULAR: Revealed a normal S1 and S2 with a regular rhythm. He has a grade 2/6 systolic ejection murmur heard best at the right upper sternal border that extends along the left sternal border. ABDOMEN: Obese, soft, with healed incisional scars. There is no rebound or rigidity. Bowel sounds are normal. No bruits were appreciated. EXTREMITIES: Without clubbing. At this time, no edema. He has varus deformity of both knees without effusion, erythema, or warmth. NEUROLOGICAL: He is intact, although a bit irritable. IMPRESSION: 1. Bibasilar pneumonia with history of chronic obstructive pulmonary disease that is currently oxygen dependent. 2. Previous history of constipation. 3. History of benign prostatic hypertrophy. 4. History of hypertension, complicated by a mild congestive heart failure. 5. History of increased irritability and insomnia with depression. PLAN: We will continue to his current antibiotic regime along with his IV methylprednisolone, decrease his oxygen intake and monitor his sats closely. His blood work today is improved. His white count has come down to 21,200. There are no further bands. His electrolytes look good. His creatinine has risen to 1.8, BUN of 61, and he is getting IV fluids at 125 an hour. We will watch and wait. His blood gas today revealed CO2 to come down from 77 yesterday to 67 today and his O2 has risen from 53 yesterday to 69, bicarbonate is down to 33. We will continue to monitor his white count, electrolytes, and kidney function and increase his diet and follow from there. /[id number] WM/MODL
[2016-10-24] MEDS: Benzonatate 100 MG Cap PO PRN (12:48)
[2016-10-24] MEDS: guaiFENesin/Dextromethorphan 100-10 MG/5 ML Soln 5 ML Cup PO PRN ×2 (13:37→22:36)
[2016-10-24] MEDS: Acetaminophen 500 MG Tab PO PRN ×2 (13:37→22:35)
[2016-10-24] MEDS: Albuterol/Ipratropium 3.0-0.5 MG/3 ML Neb Soln NEB PRN (13:58)
[2016-10-24] MEDS ORDERED: Aluminum Hydroxide/Magnesium Hydroxide Susp 30 ML Cup PO PRN (15:21)
[2016-10-24] MEDS: Azithromycin 500 MG in Sodium Chloride 0.9% 250 ML IV SCH (18:30)
[2016-10-24] MEDS: cefTRIAXone 1 GM in Sodium Chloride 0.9% 50 ML IV SCH (19:49)
[2016-10-24] MEDS: Docusate Sodium 100 MG Cap PO SCH (20:16)
[2016-10-24] MEDS: Dutasteride 0.5 MG Cap PO SCH (20:16)
[2016-10-24] MEDS: busPIRone 5 MG Tab PO SCH (20:16)
[2016-10-24] MEDS: Mirtazapine 15 MG Tab PO SCH (20:17)
[2016-10-24] MEDS: Simvastatin 20 MG Tab PO SCH (20:18)
[2016-10-24] MEDS ORDERED: Docusate Sodium 100 MG Cap PO SCH (21:00)
[2016-10-25] MEDS: Sodium Chloride 0.9% 1,000 ML IV SCH ×3 (01:57→17:35)
[2016-10-25] MEDS: Albuterol/Ipratropium 3.0-0.5 MG/3 ML Neb Soln INH SCH ×4 (07:07→20:43)
[2016-10-25] MEDS: Budesonide 0.5 MG/2 ML Neb Susp INH SCH ×2 (07:08→20:43)
[2016-10-25] MEDS: methylPREDNISolone Sodium Succinate 125 MG/2 ML SDV IVPUSH SCH ×3 (08:12→23:56)
[2016-10-25] MEDS: Potassium Chloride 10 MEQ Tab.ER PO SCH (08:13)
[2016-10-25] MEDS: Losartan 100 MG Tab PO SCH (08:13)
[2016-10-25] MEDS: busPIRone 5 MG Tab PO SCH ×2 (08:13→20:42)
[2016-10-25] MEDS: Furosemide 80 MG Tab PO SCH (08:14)
[2016-10-25] MEDS: Hydrochlorothiazide/Triamterene 50-75 MG Tab PO SCH (08:15)
[2016-10-25] MEDS: amLODIPine 5 MG Tab PO SCH (08:15)
[2016-10-25] MEDS: Metoprolol Succinate 25 MG Tab.ER PO SCH (08:16)
[2016-10-25] MEDS: Dorzolamide 2% Ophth Soln 10 ML Bottle EYELF SCH ×2 (08:16→20:44)
[2016-10-25] MEDS ORDERED: amLODIPine 5 MG Tab PO SCH (09:00)
--- NOTE | 2016-10-25 10:05 | PN ---
DATE SEEN: 10/25/2016 SUBJECTIVE: This is an 81-year-old gentleman with a history of severe COPD and bilateral pneumonia, seen today for followup, continues to gradually improve. His cough is less, says his chest tightness is less and he is feeling better. His appetite is improving. He says, he is still coughing up some orange colored sputum, but it is gradually improving. He denies any actual chest pain. No hemoptysis. No abdominal discomfort. He is perturbed by the fact that he had oxygen monitoring throughout the night and would like to have that removed. OBJECTIVE: GENERAL: He appears to be comfortable, alert, and in no acute distress. VITAL SIGNS: Afebrile. Blood pressure today is 143/71, pulse is 87 and regular, and O2 saturation is running 96% on 2 L. HEENT: Unremarkable. Mucous membranes are now pink and moist. NECK: There is no jugular venous distention. LUNGS: He has bibasilar crackles, but no expiratory wheezes. No rales, no tachypnea. CARDIOVASCULAR: Reveals a normal S1 and S2 with a soft systolic ejection murmur heard best at the right upper sternal border. ABDOMEN: Soft, obese; but nontender without organomegaly or masses. He has no peripheral edema that I can identify or for the areas there was just minimal. EXTREMITIES: Peripheral pulses are present and equal. The feet were warm to touch. He denies any foot pain at this time. LABORATORY DATA: Followup white count is down to 20,600, hemoglobin is 10.6, hematocrit of 33, and platelets are 199,000. Electrolytes were normal. His creatinine has dropped to 1.4 and BUN is 66. His glucose was 173. IMPRESSION: Severe chronic obstructive pulmonary disease with bibasilar pneumonia, gradually improving; elevated fasting glucose presumed secondary to the methylprednisolone, history of BPH, history of hypertension, and history of anxiety. PLAN: We will make no changes in his medications. Continue the azithromycin along with the ceftriaxone and the methylprednisolone. Continue his DuoNeb inhalations treatments and we will discontinue the continuous O2 saturation monitor and per his request increased activity and proceed from there. /[id number] WM/MODL
[2016-10-25] MEDS: Benzonatate 100 MG Cap PO PRN (12:21)
[2016-10-25] MEDS: Azithromycin 500 MG in Sodium Chloride 0.9% 250 ML IV SCH (18:44)
[2016-10-25] MEDS: cefTRIAXone 1 GM in Sodium Chloride 0.9% 50 ML IV SCH (20:00)
[2016-10-25] MEDS: Dutasteride 0.5 MG Cap PO SCH (20:42)
[2016-10-25] MEDS: Docusate Sodium 100 MG Cap PO SCH (20:43)
[2016-10-25] MEDS: Simvastatin 20 MG Tab PO SCH (20:44)
[2016-10-25] MEDS: Mirtazapine 15 MG Tab PO SCH (20:44)
[2016-10-25] MEDS: guaiFENesin/Dextromethorphan 100-10 MG/5 ML Soln 5 ML Cup PO PRN (22:42)
[2016-10-26] MEDS: Albuterol/Ipratropium 3.0-0.5 MG/3 ML Neb Soln NEB PRN (01:33)
[2016-10-26] MEDS: Sodium Chloride 0.9% 1,000 ML IV SCH ×2 (03:18→11:01)
[2016-10-26] MEDS: Benzonatate 100 MG Cap PO PRN ×2 (04:18→13:43)
[2016-10-26] MEDS: Budesonide 0.5 MG/2 ML Neb Susp INH SCH ×2 (07:10→20:34)
[2016-10-26] MEDS: Albuterol/Ipratropium 3.0-0.5 MG/3 ML Neb Soln INH SCH ×4 (07:10→20:34)
[2016-10-26] MEDS: busPIRone 5 MG Tab PO SCH ×2 (08:02→20:33)
[2016-10-26] MEDS: Losartan 100 MG Tab PO SCH (08:02)
[2016-10-26] MEDS: Potassium Chloride 10 MEQ Tab.ER PO SCH (08:03)
[2016-10-26] MEDS: amLODIPine 5 MG Tab PO SCH (08:03)
[2016-10-26] MEDS: Metoprolol Succinate 25 MG Tab.ER PO SCH (08:03)
[2016-10-26] MEDS: Dorzolamide 2% Ophth Soln 10 ML Bottle EYELF SCH ×2 (08:03→20:35)
[2016-10-26] MEDS: Hydrochlorothiazide/Triamterene 50-75 MG Tab PO SCH (08:03)
[2016-10-26] MEDS: methylPREDNISolone Sodium Succinate 125 MG/2 ML SDV IVPUSH SCH (08:05)
[2016-10-26] MEDS: Acetaminophen 500 MG Tab PO PRN ×2 (08:07→20:36)
[2016-10-26] MEDS ORDERED: Psyllium 0.52 GM Cap PO SCH (09:15)
[2016-10-26] MEDS ORDERED: Magnesium Hydroxide 400 MG/5 ML Susp 30 ML Cup PO PRN (09:43)
[2016-10-26] MEDS ORDERED: Psyllium Husk Powder Sugar Free 5.85 GM Packet ONE (11:01)
[2016-10-26] MEDS ORDERED: Psyllium Husk Powder Sugar Free 5.85 GM Packet PO ONE (11:15)
[2016-10-26] MEDS ORDERED: Sodium Phosphate,Monobasic/Sodium Phosphate,Dibasic Enema 133 ML Bottle RECTAL PRN (11:50)
[2016-10-26] MEDS ORDERED: Bisacodyl 10 MG Supp RECTAL ONE (11:50)
--- NOTE | 2016-10-26 12:40 | PN ---
DATE SEEN: 10/26/2016 SUBJECTIVE: This 81-year-old gentleman is seen today for followup of his bilateral pneumonia, chronic obstructive pulmonary disease, BPH, hypertension, congestive heart failure, glaucoma, and anxiety with depression. Actually, he is doing somewhat better. Continues to cough even it is rather harsh but gradually improving. He has remained afebrile and says his appetite is improved. His energy level has been slowly improving. He is able to walk now without significant hypoxia. His cough remains minimally productive, but it is gradually improving. His only concern is constipation. He says he has not had a bowel movement for a couple of days and was hoping to get some Metamucil for that. His other medications were reviewed, allergies were reviewed; all of which are accurate. OBJECTIVE: GENERAL: He appears to be quite comfortable at this time and in no acute distress. VITAL SIGNS: Afebrile. Blood pressure 137/55, pulse is 85, it is slightly irregular, and O2 saturation is 97% on 2 L. HEENT: Unremarkable. Mucous membranes were pink and moist. There is no jugular venous distention. CHEST: Revealed bibasilar crackles posteriorly, anteriorly it was clear. No wheezes were noted. CARDIOVASCULAR: Revealed a normal S1 and S2 with a systolic ejection murmur heard best at the right upper sternal border that is unchanged. ABDOMEN: Soft, obese, and nontender without organomegaly or masses. EXTREMITIES: Without clubbing. No edema, ulcerations, or areas of breakdown. DIAGNOSTIC DATA: Sputum culture grew out Haemophilus influenza, sensitive to pretty much everything. IMPRESSION: 1. Haemophilus flu pneumonia, bilaterally. 2. Benign prostatic hypertrophy. 3. History of chronic obstructive pulmonary disease. 4. Hypertension with history of congestive heart failure. 5. Constipation. PLAN: He has finished his course of azithromycin. We will continue his IV ceftriaxone at least for now. I am going to discontinue the methylprednisolone, switch him over to oral prednisone 20 mg b.i.d., and will wean from that as improvement continues. We will start on Metamucil and milk of magnesia was also ordered for constipation. If that does not work, we can advance from there. Continue to gradually increase activity and wean from oxygen. Recheck panel eight and CBC in the morning. /[id number] WM/MODL
[2016-10-26] MEDS ORDERED: predniSONE 20 MG Tab PO ONE (18:00)
[2016-10-26] MEDS: cefTRIAXone 1 GM in Sodium Chloride 0.9% 50 ML IV SCH (19:46)
[2016-10-26] MEDS: Dutasteride 0.5 MG Cap PO SCH (20:33)
[2016-10-26] MEDS: Docusate Sodium 100 MG Cap PO SCH (20:33)
[2016-10-26] MEDS: Mirtazapine 15 MG Tab PO SCH (20:35)
[2016-10-26] MEDS: Simvastatin 20 MG Tab PO SCH (20:36)
[2016-10-26] MEDS: guaiFENesin/Dextromethorphan 100-10 MG/5 ML Soln 5 ML Cup PO PRN (21:57)
[2016-10-27] MEDS: Sodium Chloride 0.9% 1,000 ML IV SCH (00:09)
[2016-10-27] MEDS: Albuterol/Ipratropium 3.0-0.5 MG/3 ML Neb Soln INH SCH ×4 (07:18→21:12)
[2016-10-27] MEDS: Budesonide 0.5 MG/2 ML Neb Susp INH SCH ×2 (07:18→21:15)
[2016-10-27] MEDS ORDERED: predniSONE 10 MG Tab PO SCH (08:00)
[2016-10-27] MEDS: Metoprolol Succinate 25 MG Tab.ER PO SCH (08:10)
[2016-10-27] MEDS: Potassium Chloride 10 MEQ Tab.ER PO SCH (08:11)
[2016-10-27] MEDS: Dorzolamide 2% Ophth Soln 10 ML Bottle EYELF SCH ×2 (08:11→21:06)
[2016-10-27] MEDS: busPIRone 5 MG Tab PO SCH ×2 (08:11→21:05)
[2016-10-27] MEDS: Losartan 100 MG Tab PO SCH (08:11)
[2016-10-27] MEDS: Hydrochlorothiazide/Triamterene 50-75 MG Tab PO SCH (08:11)
[2016-10-27] MEDS: Furosemide 80 MG Tab PO SCH (08:11)
[2016-10-27] MEDS: amLODIPine 5 MG Tab PO SCH (08:11)
[2016-10-27] MEDS: Psyllium Husk Powder Sugar Free 5.85 GM Packet PO SCH ×2 (08:12→15:30)
[2016-10-27] MEDS: Amoxicillin/Clavulanate K 500-125 MG Tab PO SCH ×2 (10:37→21:07)
--- NOTE | 2016-10-27 12:12 | PN ---
DATE SEEN: 10/27/2016 SUBJECTIVE: This 81-year-old male with a history of oxygen-dependent COPD, seen today for followup of his Haemophilus flu pneumonia bilaterally. His cough continues to improve. His wheezing continues to improve. He still is quite dyspneic with exertion and does drop his O2 saturations with exertion, but at rest, his sats are actually quite good and is on 2 L. he says his cough is becoming less and less productive. He has had no fever, chills, or night sweats. Denies any abdominal pain. He has had no other complaints or concerns. He is taking his medications as noted and allergies are noted. OBJECTIVE: VITAL SIGNS: He remains afebrile. Blood pressure 144/72, pulse is 74 and regular, respirations were 16 and unlabored, and O2 saturation on 2 L is 97%. HEENT: Unremarkable. Mucous membranes are slightly pale, but otherwise negative. CHEST: Reveals some persistent posterior crackles at the bases, but these are gradually improving. No expiratory wheezes. No tachypnea. CARDIOVASCULAR: Revealed a normal S1 and S2 with a soft systolic ejection murmur along the right and left sternal border. ABDOMEN: Unremarkable except for obesity. EXTREMITIES: Without clubbing, just a trace edema was noted about his ankle, otherwise was unremarkable. LABORATORY DATA: Today revealed a hemoglobin of 10.8, hematocrit of 34.3, MCV was 84.4, white count down to 14,900, was persistent left shift, no bands. Electrolytes were normal. His creatinine is improved to 1.1, BUN of 49, glucose was 119. Blood cultures were negative. IMPRESSION: 1. Haemophilus flu pneumonia with oxygen-dependent chronic obstructive pulmonary disease. 2. History of benign prostatic hypertrophy. 3. Constipation, improved. PLAN: I am going to switch him over to oral Augmentin 500 mg p.o. q.12 hours with food. Discontinue the ceftriaxone and start weaning him from his prednisone and increase his activities. [place] States where he currently lives, he has requested we obtain a PT/OT consult to make sure he is able to be in a basic care on situation and will continue to walk him with his oxygen. /[id number] 1200 WM/MODL
[2016-10-27] MEDS: predniSONE 5 MG Tab PO SCH ×2 (12:54→17:42)
[2016-10-27] MEDS: Dutasteride 0.5 MG Cap PO SCH (21:04)
[2016-10-27] MEDS: Docusate Sodium 100 MG Cap PO SCH (21:04)
[2016-10-27] MEDS: Mirtazapine 15 MG Tab PO SCH (21:05)
[2016-10-27] MEDS: Simvastatin 20 MG Tab PO SCH (21:07)
[2016-10-28] MEDS: Budesonide 0.5 MG/2 ML Neb Susp INH SCH (08:02)
[2016-10-28] MEDS: Albuterol/Ipratropium 3.0-0.5 MG/3 ML Neb Soln INH SCH ×2 (08:02→11:11)
[2016-10-28] MEDS: predniSONE 5 MG Tab PO SCH (08:47)
[2016-10-28] MEDS: Psyllium Husk Powder Sugar Free 5.85 GM Packet PO SCH (08:48)
[2016-10-28] MEDS: busPIRone 5 MG Tab PO SCH (08:49)
[2016-10-28] MEDS: Losartan 100 MG Tab PO SCH (08:49)
[2016-10-28] MEDS: Potassium Chloride 10 MEQ Tab.ER PO SCH (08:51)
[2016-10-28] MEDS: Metoprolol Succinate 25 MG Tab.ER PO SCH (08:52)
[2016-10-28] MEDS: amLODIPine 5 MG Tab PO SCH (08:52)
[2016-10-28] MEDS: Hydrochlorothiazide/Triamterene 50-75 MG Tab PO SCH (08:52)
[2016-10-28] MEDS: Amoxicillin/Clavulanate K 500-125 MG Tab PO SCH (08:53)
[2016-10-28] MEDS: Dorzolamide 2% Ophth Soln 10 ML Bottle EYELF SCH (08:53)
[2016-10-28 12:00] VITALS: BP 151/70
--- NOTE | 2016-10-28 12:29 | PN ---
DATE SEEN: 10/28/2016 SUBJECTIVE: This 81-year-old gentleman is seen today for followup of his bilateral H flu pneumonia along with oxygen-dependent COPD, BPH, arteriosclerotic heart disease with some congestive heart failure and glaucoma. Continues to improve. He says his cough has almost totally resolved. He has had no fever. Appetite has been good. He has been stooling well. Chest pain, shortness of breath was noted with exertion. His saturations do drop with activities, but when sitting at 2 L/minute, his saturations remained at 95%. He is tolerating the medications well. He has had no diarrhea. Denies any other complaints or concerns. PT/OT is looked at him, they do not feel he has any specific needs. OBJECTIVE: GENERAL: He has remained afebrile. VITAL SIGNS: Blood pressure 155/68, pulse is 79 and regular, O2 saturation is 98% on 2 L. However when he walks, it will drop down to 88%. HEENT: Unremarkable and unchanged. There is no jugular venous distention. A few crackles remain at both bases, but these were almost totally cleared. There were no retractions. No tachypnea. CARDIOVASCULAR: Revealed a normal S1, S2 with a systolic ejection murmur heard best at the right upper sternal border. Regular rhythm was noted. ABDOMEN: Obese but soft and nontender without organomegaly or masses. EXTREMITIES: Showed no clubbing, just a trace edema was noted about his ankles. No ulcerations or areas of breakdown. IMPRESSION: 1. Bilateral lower lobe pneumonia, improving, secondary to Haemophilus influenzae. 2. Oxygen-dependent chronic obstructive pulmonary disease. 3. Hypertension. 4. Glaucoma. 5. History of benign prostatic hypertrophy. 6. History of constipation, improved. PLAN: At this point, we will discharge him back to [facility]. He is in basic care there and will be up and about. We will continue his walking program. They will probably have to increase his oxygen to 3 L when he is up and about and when at rest, he can drop down to 2 L. A followup appointment was recommended in couple weeks to see his regular physician for a repeat chest x- ray. He will stay on the Augmentin for seven more days and continue his nebulizer therapies as an outpatient. If there are problems or other difficulties arise, they will let us know when he can return. /[id number] /MANI
--- NOTE | 2016-10-29 13:18 | DISCH ---
DISCHARGE DATE: 10/28/2016 REASON FOR ADMISSION: This 81-year-old male, resident of [facility] in [place], [place], was admitted with a 3-4 day history of increasing cough, shortness of breath, right upper abdominal discomfort. He was brought to the emergency room because of increased sputum production. He was found to have bibasilar pneumonia with elevated white count and some mild hypoxemia. He was, therefore, admitted for more aggressive therapy. He has a previous history of oxygen dependent COPD, glaucoma, hypertension, anxiety, and mild depression. Also a previous history of CHF. Please see a copy of the H and P for further details. HOSPITAL COURSE: The patient was admitted. Sputum and blood cultures were obtained, and he was started on aggressive nebulizer treatments along with Rocephin and azithromycin and IV Solu-Medrol. Eventually, his white count dropped from an admission of 23,800. He became afebrile, and his sputum grew out Haemophilus influenzae. With the above-mentioned treatment, his cough gradually improved. His hypoxemia improved, eventually IV antibiotics were discontinued, and he was switched over to Augmentin 500 mg p.o. q.12 hours with food as the Haemophilus influenza was sensitive to it, and PT/OT was consulted and they felt that he was strong enough to be up and about and well enough to go back to [facility] without difficulty. As his cough improved, his appetite improved, he was sleeping better. Activity is improved, and he has been up and about now. His saturations at rest on 2 L are usually around 95%. He does dropped to below 88% when he is with activity, but if he increases oxygen flow at 3-4 L, it stays at 90% or above with activity, and he has actually done very well. He had some problems with constipation, but that is improved with the use of Metamucil on daily basis, and he has proved to be much more comfortable. Again, he has remained afebrile, and his cough was almost totally resolved. He will continue his antibiotic therapy and follow up with his regular physician in a couple of weeks. FINAL DIAGNOSES: 1. Bibasilar pneumonia secondary to Haemophilus influenzae. 2. Oxygen dependent chronic obstructive pulmonary disease, that is severe. 3. History of hypertension. 4. History of congestive heart failure. 5. History of glaucoma. 6. Benign prostatic hypertrophy. 7. Intermittent constipation. DISCHARGE MEDICATIONS: DuoNebs q.i.d.; prednisone 15 mg b.i.d. for the next four days then 10 mg b.i.d. for five days, 5 mg b.i.d. for five days, then 5 mg daily thereafter. He will continue his Pulmicort via nebulizer b.i.d., Augmentin 500 mg p.o. q.12 hours for the next 7 days. He is also on Avodart 0.5 mg daily, furosemide 80 mg every other morning, Maxzide 25 mg daily, losartan 100 mg daily, metoprolol succinate 25 mg daily, Remeron 15 mg at bedtime, potassium chloride 10 mEq daily, simvastatin 20 mg daily, amlodipine 5 mg daily, BuSpar 5 mg b.i.d., Azopt eye drops at bedtime, Metamucil and a glass of juice daily. He continues on docusate sodium 200 mg at bedtime, 100 mg in the morning, p.r.n. Mucinex cough syrup, p.r.n. Tessalon Perles, and p.r.n. Tylenol. DISCHARGE DIET: Regular. DISCHARGE DISPOSITION: He was discharged in the [facility]. [facility] will be still seeing him periodically for evaluation of his COPD and medications. He will continue his activity with his oxygen at 2 L/minute at rest, but increasing to 3-4 L/minute with activity, and a followup appointment with his regular doctor, Dr. Bennett, will be made in approximately two weeks for recheck and repeat x-ray. If there are problems or other concerns, to let us know. /[id number] /LUIL
[2016-10-30] MEDS ORDERED: predniSONE 10 MG Tab PO SCH (08:00)
[2016-11-02] MEDS ORDERED: predniSONE 5 MG Tab PO SCH (08:00)
[2016-11-05] MEDS ORDERED: predniSONE 5 MG Tab PO SCH (08:00)
== END 2016-10-28 14:00 | DRG 195 ==
LOC: FB.ED 14:21 → FB.MS 16:09
PROVIDERS: ADMIT Family Medicine; ATTEND Family Medicine
DX: J10.08 Influenza due to other identified influenza virus with other specified pneumonia (principal); J14 Pneumonia due to Hemophilus influenzae; J44.1 Chronic obstructive pulmonary disease with (acute) exacerbation; I11.0 Hypertensive heart disease with heart failure; I50.9 Heart failure, unspecified; R09.02 Hypoxemia; Z99.81 Dependence on supplemental oxygen; Z87.891 Personal history of nicotine dependence; B96.3 Hemophilus influenzae [H. influenzae] as the cause of diseases classified elsewhere; R06.02 Shortness of breath; R05 Cough; R10.11 Right upper quadrant pain; J10.1 Influenza due to other identified influenza virus with other respiratory manifestations; K59.00 Constipation, unspecified; H40.9 Unspecified glaucoma; E78.00 Pure hypercholesterolemia, unspecified; N40.0 Benign prostatic hyperplasia without lower urinary tract symptoms; M19.90 Unspecified osteoarthritis, unspecified site; F41.9 Anxiety disorder, unspecified; F32.9 Major depressive disorder, single episode, unspecified; Z88.6 Allergy status to analgesic agent; Z79.52 Long term (current) use of systemic steroids
CPT/HCPCS: 36415; 71010; 80048; 80076; 82150; 83605; 84484; 85025; 87070; 87077 ×2; 87186; 87205; 93005; 94664; 96361; 96374; 96375; 99285 ×2; J1170; J2405; J2930; J7040; J7620; 36600; 80053; 82803; 85027; 87040; 94640-76; 97162-GP; 97165-GO; A9270-GY; C9113; J0456; J0696; J7050

== ENCOUNTER 2017-06-22 14:07 | Observation (INO) | payer MEDICARE, MEDICAID ==
--- NOTE | 2017-06-22 14:39 | EDM.PDOC ---
ED HPI GENERAL MEDICAL PROBLEM - General Chief Complaint: Chest Pain Stated Complaint: CHEST PAIN Time Seen by Provider: 06/22/17 14:01 Source of Information: Reports: Patient History Limitations: Reports: Physical Impairment - History of Present Illness INITIAL COMMENTS - FREE TEXT/NARRATIVE: 82 years old w m came by ems to the ed due to sudden onset of pain at rest while sitting in a his chair. Pt denied trauma. Pt locates his pain to the left chest wall, inside his chest. Pt is on 2 l O2 bu NC at home 16/03 No N/C/D or other acute medical issues. BP 145/53 Pulse 68 Temp 36.7 pulse ox on 3 liter 3 liters O2 91 % Onset: Unknown/Unsure Onset Date: 06/21/17 Onset Time: 07:00 Duration: Getting Worse, Intermittent Location: Reports: Chest Quality: Reports: Ache, Burning, Dull, Stabbing Severity: Moderate Improves with: Reports: Rest Worsens with: Reports: Movement Context: Reports: Other (pain came on at rest, while sitting in a chair. ) Associated Symptoms: Reports: Chest Pain, Shortness of Breath (0n 2 liters home o2 by NC) chest pain Pain Score (Numeric/FACES): 8 - Related Data Allergies Allergy/AdvReac Type Severity Reaction Status Date / Time aspirin Allergy Cannot Verified 06/22/17 17:13 Remember Home Meds: Home Meds Albuterol/Ipratropium [DuoNeb 3.0-0.5 MG/3 ML] 1 each INH QID 09/26/13 [History] Brinzolamide [Azopt 1% Ophth Susp] 1 drop EYELF BID 09/26/13 [History] Dutasteride [Avodart] 0.5 mg PO BEDTIME 09/26/13 [History] Metoprolol Succinate 25 mg PO DAILY 09/26/13 [History] Mirtazapine [Remeron] 15 mg PO BEDTIME 09/26/13 [History] Simvastatin 20 mg PO BEDTIME 09/26/13 [History] Travoprost [Travatan Z 0.004% Ophth Soln] 1 drop EYEBOTH BEDTIME 09/26/13 [ History] Triamterene/Hydrochlorothiazid [Triamterene-HCTZ 75-50 MG] 1 tab PO DAILY 02/03/ 14 [History] Potassium Chloride [Klor-Con 10] 10 meq PO DAILY #30 tab.er 09/30/13 [Rx] Budesonide [Pulmicort] 0.5 mg IH BID 02/12/15 [History] Furosemide [Lasix] 80 mg PO DAILY 04/10/15 [History] Losartan Potassium [Cozaar] 100 mg PO DAILY 04/10/15 [History] Acetaminophen [Tylenol] 650 mg PO BEDTIME 10/23/16 [History] Ascorbate Calcium [Vitamin C] 500 mg PO DAILY 10/23/16 [History] Benzonatate 100 mg PO TID 10/23/16 [History] Dextromethorphan/guaiFENesin [Robitussin DM] 5 ml PO Q4H PRN 10/23/16 [History] Polyethylene Glycol 3350 [MiraLAX] 17 gm PO DAILY PRN 10/23/16 [History] amLODIPine [Norvasc] 5 mg PO DAILY 10/23/16 [History] busPIRone [Buspar] 7.5 mg PO BID 10/23/16 [History] Acetaminophen [Tylenol] 650 mg PO Q4H PRN 10/24/16 [History] Multivitamin with Minerals [Multivitamins with Minerals] 1 tab PO DAILY [History] Albuterol/Ipratropium [Combivent] 2 puff INH BID PRN 06/22/17 [History] Benzonatate [Tessalon Perles] 100 mg PO TID PRN 06/22/17 [History] Docusate Sodium/Sennosides [Senna Plus] 2 tab PO BID 06/22/17 [History] Pseudoephedrine [Sudafed 12 Hour] 120 mg PO BID PRN 06/22/17 [History] guaiFENesin/Dextromethorphan [Mucinex Dm ER 600-30 mg Tablet] 2 tab PO BID PRN 06/22/17 [History] Diclofenac Sodium [Voltaren 1% Gel] 1 applic TOP TID 06/23/17 [History] predniSONE [Prednisone] 20 mg PO BID #10 tablet 06/23/17 [Rx] Past Medical History HEENT History: Reports: Cataract, Glaucoma Other HEENT History: both eyes done. pt wears glassess. Cardiovascular History: Reports: High Cholesterol, Hypertension Respiratory History: Reports: COPD, Pneumothorax Other Respiratory History: COLLASPSED LUNG YEARS AGO. Gastrointestinal History: Reports: Chronic Constipation Genitourinary History: Reports: BPH, Prostate Disorder Musculoskeletal History: Reports: Arthritis, Osteoarthritis Other Musculoskeletal History: GENERALIZED ARTHRITIS Endocrine/Metabolic History: Reports: None Oncologic (Cancer) History: Reports: Other (See Below) Other Oncologic History: skin CA Dermatologic History: Reports: Other (See Below) Other Dermatologic History: Hx of skin ulcers to coccyx recently - Past Surgical History HEENT Surgical History: Reports: Cataract Surgery Respiratory Surgical History: Reports: Other (See Below) Musculoskeletal Surgical History: Reports: Hip Replacement Social & Family History - Family History Family Medical History: Noncontributory - Tobacco Use Smoking Status *Q: Former Smoker Years of Tobacco use: 20 Packs/Tins Daily: 0.5 Used Tobacco, but Quit: Yes Month Tobacco Last Used: umnknown Second Hand Smoke Exposure: No - Caffeine Use Caffeine Use: Reports: Coffee - Alcohol Use Days Per Week of Alcohol Use: 0 Number of Drinks Per Day: 1 Total Drinks Per Week: 0 - Recreational Drug Use Recreational Drug Use: No - Living Situation & Occupation Living situation: Reports: Occupation: Retired ED ROS GENERAL - Review of Systems Review Of Systems: Unable To Obtain ED EXAM, GENERAL - Physical Exam Exam: See Below Exam Limited By: Physical Impairment General Appearance: Alert, WD/WN, Moderate Distress Eye Exam: Bilateral Eye: Normal Inspection Ear Exam: Bilateral Ear: Auricle Normal, Tenderness Nose: Normal Inspection, Normal Mucosa Throat/Mouth: Normal Inspection, No Airway Compromise, Other (poor denti) Head: Atraumatic, Normocephalic Neck: Normal Inspection, Supple, Non-Tender, Full Range of Motion Respiratory/Chest: Respiratory Distress (on home O2, COPD, poor insp effort) Cardiovascular: Normal Peripheral Pulses, Regular Rate, Rhythm, No Edema Peripheral Pulses: 1+: Femoral (L), Femoral (R) GI/Abdominal: Normal Bowel Sounds (Male) Exam: Deferred Rectal (Males) Exam: Deferred Back Exam: Normal Inspection, Full Range of Motion Extremities: Normal Inspection, Normal Range of Motion, Non-Tender Neurological: Alert, Oriented, CN II-XII Intact, Normal Cognition, Normal Gait Psychiatric: Normal Affect, Normal Mood Skin Exam: Warm Lymphatic: No Adenopathy EKG INTERPRETATION EKG Date: 06/22/17 Time: 14:15 Rhythm: NSR Rate (Beats/Min): 65 [place]: Normal P-Wave: Present QRS: Normal ST-T: Normal QT: Normal Comparison: NA - No Prior EKG Course - Vital Signs Text/Narrative:: 82 years old w m came by ems to the ed due to sudden onset of pain at rest while sitting in a his chair. Pt denied trauma. Pt locates his pain to the left chest wall, inside his chest. Pt is on 2 l O2 bu NC at home 16/03 No N/C/D or other acute medical issues. BP 145/53 Pulse 68 Temp 36.7 pulse ox on 3 liter 3 liters O2 91 % PEL 82 y.o.w.m with cp 8/10 at rest left ant chest, nonradiating, no diaphoresis. No N/V/V Labs: Teop 0.03, CBC nl Na 136 K 4.1 BUN 41 Cr, 1,2 GFR 58 D Dimer 450 (No Angio Chest recommended by RAD) Imaging: COPD. minimal CHF Impression: COPD, Chest pain, CHF Tx: Toradol \ Reexam: improved pain was 6/10 after Toradol, NTG was give in te ED initially because the DDx of pleuritic chest main Consultation: Dr. Barahona: Will see the patient in the ed. Plan: Admit to [facility] Last Recorded V/S: Last Vital Signs Temp 36.9 C 06/23/17 08:10 Pulse 67 06/23/17 08:10 Resp 18 06/23/17 08:10 BP 155/66 H 06/23/17 08:10 Pulse Ox 94 L 06/23/17 10:24 - Orders/Labs/Meds Labs: Laboratory Tests 06/22/17 06/22/17 06/22/17 Range/Units 14:32 14:35 14:35 WBC 11.8 (4.5-12.0) X10-3/uL RBC 4.94 (4.30-5.75) x10(6)uL Hgb 13.6 (11.5-15.5) g/dL Hct 41.8 (30.0-51.3) % MCV 84.7 (80-96) fL MCH 27.5 L (27.7-33.6) pg MCHC 32.5 (32.2-35.4) g/dL RDW 14.9 (11.5-15.5) % Plt Count 232 (125-369) X10(3)uL MPV 8.1 (7.4-10.4) fL Neut % (Auto) 72.9 (46-82) % Lymph % (Auto) 15.5 (13-37) % [place] % (Auto) 9.0 (4-12) % Eos % (Auto) 2 (1.0-5.0) % Baso % (Auto) 0 (0-2) % Neut # (Auto) 8.6 H (1.6-8.3) # Lymph # (Auto) 1.8 (0.6-5.0) # [place] # (Auto) 1.1 (0.0-1.3) # Eos # (Auto) 0.3 (0.0-0.8) # Baso # (Auto) 0.0 (0.0-0.2) # D-Dimer, Quantitative 450 H (100-400) ng/mL Sodium (135-145) mmol/L Potassium (3.5-5.3) mmol/L Chloride (100-110) mmol/L Carbon Dioxide (23-29) mmol/L BUN (8-23) mg/dL Creatinine (0.6-1.3) mg/dL Est Cr Clr Drug Dosing Estimated GFR (MDRD) (>60) BUN/Creatinine Ratio (9-20) Glucose (80-116) mg/dL Calcium (8.6-10.2) mg/dL Total Bilirubin (0.1-1.3) mg/dL AST (5-27) IU/L ALT (14-26) IU/L Alkaline Phosphatase (56-112) IU/L Creatine Kinase (60-160) IU/L Troponin I (0.02-0.06) NG/ML Total Protein (6.0-8.0) g/dL Albumin (3.2-4.6) g/dL Globulin g/dL Albumin/Globulin Ratio Urine Color Yellow (YELLOW) Urine Appearance Clear (CLEAR) Urine pH 7.0 H (5.0-6.5) Ur Specific [place] 1.005 L (1.010-1.025) Urine Protein Negative (NEGATIVE) mg/dL Urine Glucose (UA) Normal (NEGATIVE) mg/dL Urine Ketones Negative (NEGATIVE) mg/dL Urine Occult Blood Negative (NEGATIVE) Urine Nitrite Negative (NEGATIVE) Urine Bilirubin Negative (NEGATIVE) Urine Urobilinogen Normal (NEGATIVE) mg/dL Ur Leukocyte Esterase Negative (NEGATIVE) 06/22/17 06/22/17 Range/Units 14:35 14:35 WBC (4.5-12.0) X10-3/uL RBC (4.30-5.75) x10(6)uL Hgb (11.5-15.5) g/dL Hct (30.0-51.3) % MCV (80-96) fL MCH (27.7-33.6) pg MCHC (32.2-35.4) g/dL RDW (11.5-15.5) % Plt Count (125-369) X10(3)uL MPV (7.4-10.4) fL Neut % (Auto) (46-82) % Lymph % (Auto) (13-37) % [place] % (Auto) (4-12) % Eos % (Auto) (1.0-5.0) % Baso % (Auto) (0-2) % Neut # (Auto) (1.6-8.3) # Lymph # (Auto) (0.6-5.0) # [place] # (Auto) (0.0-1.3) # Eos # (Auto) (0.0-0.8) # Baso # (Auto) (0.0-0.2) # D-Dimer, Quantitative (100-400) ng/mL Sodium 136 (135-145) mmol/L Potassium 4.1 (3.5-5.3) mmol/L Chloride 90 L D (100-110) mmol/L Carbon Dioxide 37 H (23-29) mmol/L BUN 41 H (8-23) mg/dL Creatinine 1.2 (0.6-1.3) mg/dL Est Cr Clr Drug Dosing TNP Estimated GFR (MDRD) 58 L (>60) BUN/Creatinine Ratio 34.2 H (9-20) Glucose 118 H (80-116) mg/dL Calcium 9.4 (8.6-10.2) mg/dL Total Bilirubin 0.5 (0.1-1.3) mg/dL AST 23 D (5-27) IU/L ALT 15 (14-26) IU/L Alkaline Phosphatase 68 (56-112) IU/L Creatine Kinase 68 (60-160) IU/L Troponin I 0.03 (0.02-0.06) NG/ML Total Protein 6.9 (6.0-8.0) g/dL Albumin 3.8 (3.2-4.6) g/dL Globulin 3.1 g/dL Albumin/Globulin Ratio 1.2 Urine Color (YELLOW) Urine Appearance (CLEAR) Urine pH (5.0-6.5) Ur Specific [place] (1.010-1.025) Urine Protein (NEGATIVE) mg/dL Urine Glucose (UA) (NEGATIVE) mg/dL Urine Ketones (NEGATIVE) mg/dL Urine Occult Blood (NEGATIVE) Urine Nitrite (NEGATIVE) Urine Bilirubin (NEGATIVE) Urine Urobilinogen (NEGATIVE) mg/dL Ur Leukocyte Esterase (NEGATIVE) Meds: Medications Discontinued Medications Generic Name Dose Route Start Last Admin Trade Name Freq PRN Reason Stop Dose Admin Acetaminophen 650 mg 06/22/17 19:51 06/22/17 20:22 Tylenol PO 650 mg Q6H PRN Administration Pain Albuterol/Ipratropium 3 ml 06/22/17 17:03 06/23/17 07:35 Duoneb 3.0-0.5 Mg/3 Ml NEB 3 ml Q4H PRN Administration Wheezing Enoxaparin Sodium 30 mg 06/22/17 17:15 06/22/17 19:32 Lovenox SUBCUT 30 mg DAILY MARGARET Administration Enoxaparin Sodium 30 mg 06/23/17 17:00 Lovenox SUBCUT DAILY@1700 [facility] Ketorolac Tromethamine 15 mg 06/22/17 16:10 06/22/17 16:16 Toradol IVPUSH 06/22/17 16:11 15 mg ONETIME ONE Administration Ketorolac Tromethamine 15 mg 06/22/17 17:03 Toradol IM Q6H PRN Pain (moderate 4-6) Morphine Sulfate 2 mg 06/22/17 17:03 Morphine IVPUSH Q2H PRN Pain (severe 7-10) Nitroglycerin 0.4 mg 06/22/17 17:03 Nitrostat SL Q5M PRN Chest Pain Prednisone 20 mg 06/22/17 21:00 06/23/17 08:12 Prednisone PO 20 mg BID MARGARET Administration Sodium Chloride 10 ml 06/22/17 16:17 06/22/17 16:16 Saline Flush FLUSH 10 ml ASDIRECTED PRN Administration Keep Vein Open Departure - Departure Time of Disposition: 18:00 Disposition: Admitted As Inpatient 66 Condition: Fair Clinical Impression: COPD exacerbation
[2017-06-22] MEDS: Sodium Chloride 0.9% 10 ML Syringe FLUSH PRN ×2 (16:00→16:16)
--- NOTE | 2017-06-22 16:08 | CR ---
INDICATION: Chest pain. CHEST: An AP upright portable view of the chest 06/22/2017 was compared with and 03/31/2015. The heart is enlarged, perhaps slightly to a greater extent than on the previous study. Overlying EKG leads are noted. The aorta is tortuous with calcification in the arch. The upper lung field pulmonary vasculature is somewhat prominent, raising question of a mild degree of CHF. Interstitial lung edema may also be present to a mild degree. Somewhat heavy markings on the right likely represent fibrosis, although minimal patchy pneumonia cannot be excluded in the mid lung field and lung base on the right and also at the left lung base where heavy markings are also present. IMPRESSION: 1. ASHD, cardiomegaly, suggestion of mild CHF and possible minimal interstitial lung edema. 2. Heavy markings compatible with pulmonary fibrosis, but making it difficult to exclude minimal patchy bronchopneumonia in the mid lung field on the right and both lung bases. MTDD
[2017-06-22] MEDS ORDERED: Ketorolac 30 MG/ML SDV IVPUSH ONE (16:10)
[2017-06-22] MEDS ORDERED: Ketorolac 30 MG/ML SDV IM PRN (17:03)
[2017-06-22] MEDS ORDERED: Morphine 2 MG/ML Syringe IVPUSH PRN (17:03)
[2017-06-22] MEDS ORDERED: Nitroglycerin 0.4 MG Tab.SL SL PRN (17:03)
[2017-06-22] MEDS ORDERED: Enoxaparin 30 MG/0.3 ML Syringe SUBCUT SCH (17:15)
[2017-06-22] MEDS ORDERED: Acetaminophen 325 MG Tab PO PRN (19:51)
[2017-06-22] MEDS: Albuterol/Ipratropium 3.0-0.5 MG/3 ML Neb Soln NEB PRN (20:17)
[2017-06-22] MEDS: predniSONE 20 MG Tab PO SCH (20:22)
[2017-06-23] MEDS: Albuterol/Ipratropium 3.0-0.5 MG/3 ML Neb Soln NEB PRN (07:35)
[2017-06-23] MEDS: predniSONE 20 MG Tab PO SCH (08:12)
--- NOTE | 2017-06-23 08:46 | PCM.HP ---
H&P History of Present Illness - General Date of Service: 06/23/17 Admit Problem/Dx: Admission Diagnosis/Problem Admission Diagnosis/Problem Chest pain Source of Information: Patient, Old Records History Limitations: Reports: No Limitations - History of Present Illness Initial Comments - Free Text/Narative: 82-year-old male from [employer], presented with chest pain that started at dinnertime. He describes sharp pain on the left side with no radiation [id number] intensity nothing helping. He was seated in his chair this when this started. He has a history of severe COPD oxygen dependent 3 liters of nasal cannula everyday .He is a previous smoker, and has stable hypertension and hyperlipidemia. chest pain Pain Score (Numeric/FACES): 0 - Related Data Allergies/Adverse Reactions: Allergies Allergy/AdvReac Type Severity Reaction Status Date / Time aspirin Allergy Cannot Verified 06/22/17 17:13 Remember Home Medications: Home Meds Albuterol/Ipratropium [DuoNeb 3.0-0.5 MG/3 ML] 1 each INH QID 09/26/13 [History] Brinzolamide [Azopt 1% Ophth Susp] 1 drop EYELF BID 09/26/13 [History] Dutasteride [Avodart] 0.5 mg PO BEDTIME 09/26/13 [History] Metoprolol Succinate 25 mg PO DAILY 09/26/13 [History] Mirtazapine [Remeron] 15 mg PO BEDTIME 09/26/13 [History] Simvastatin 20 mg PO BEDTIME 09/26/13 [History] Travoprost [Travatan Z 0.004% Ophth Soln] 1 drop EYEBOTH BEDTIME 09/26/13 [ History] Triamterene/Hydrochlorothiazid [Triamterene-HCTZ 75-50 MG] 1 tab PO DAILY [History] Potassium Chloride [Klor-Con 10] 10 meq PO DAILY #30 tab.er 09/30/13 [Rx] Budesonide [Pulmicort] 0.5 mg IH BID 02/12/15 [History] Furosemide [Lasix] 80 mg PO DAILY 04/10/15 [History] Losartan Potassium [Cozaar] 100 mg PO DAILY 04/10/15 [History] Acetaminophen [Tylenol] 650 mg PO BEDTIME 10/23/16 [History] Ascorbate Calcium [Vitamin C] 500 mg PO DAILY 10/23/16 [History] Benzonatate 100 mg PO TID 10/23/16 [History] Dextromethorphan/guaiFENesin [Robitussin DM] 5 ml PO Q4H PRN 10/23/16 [History] Polyethylene Glycol 3350 [MiraLAX] 17 gm PO DAILY PRN 10/23/16 [History] amLODIPine [Norvasc] 5 mg PO DAILY 10/23/16 [History] busPIRone [Buspar] 7.5 mg PO BID 10/23/16 [History] Acetaminophen [Tylenol] 650 mg PO Q4H PRN 10/24/16 [History] Multivitamin with Minerals [Multivitamins with Minerals] 1 tab PO DAILY [History] Albuterol/Ipratropium [Combivent] 2 puff INH BID PRN 06/22/17 [History] Benzonatate [Tessalon Perles] 100 mg PO TID PRN 06/22/17 [History] Docusate Sodium/Sennosides [Senna Plus] 2 tab PO BID 06/22/17 [History] Pseudoephedrine [Sudafed 12 Hour] 120 mg PO BID PRN 06/22/17 [History] guaiFENesin/Dextromethorphan [Mucinex Dm ER 600-30 mg Tablet] 2 tab PO BID PRN 06/22/17 [History] Diclofenac Sodium [Voltaren 1% Gel] 1 applic TOP TID 06/23/17 [History] Past Medical History HEENT History: Reports: Cataract, Glaucoma Other HEENT History: both eyes done. pt wears glassess. Cardiovascular History: Reports: High Cholesterol, Hypertension Respiratory History: Reports: COPD, Pneumothorax Other Respiratory History: COLLASPSED LUNG YEARS AGO. Gastrointestinal History: Reports: Chronic Constipation Genitourinary History: Reports: BPH, Prostate Disorder Musculoskeletal History: Reports: Arthritis, Osteoarthritis Other Musculoskeletal History: GENERALIZED ARTHRITIS Endocrine/Metabolic History: Reports: None Oncologic (Cancer) History: Reports: Other (See Below) Other Oncologic History: skin CA Dermatologic History: Reports: Other (See Below) Other Dermatologic History: Hx of skin ulcers to coccyx recently - Past Surgical History HEENT Surgical History: Reports: Cataract Surgery Respiratory Surgical History: Reports: Other (See Below) Musculoskeletal Surgical History: Reports: Hip Replacement Social & Family History - Family History Family Medical History: Noncontributory - Tobacco Use Smoking Status *Q: Former Smoker Years of Tobacco use: 20 Packs/Tins Daily: 0.5 Used Tobacco, but Quit: Yes Month Tobacco Last Used: umnknown Second Hand Smoke Exposure: No - Caffeine Use Caffeine Use: Reports: Coffee - Alcohol Use Days Per Week of Alcohol Use: 0 Number of Drinks Per Day: 1 Total Drinks Per Week: 0 - Recreational Drug Use Recreational Drug Use: No - Living Situation & Occupation Living situation: Reports: Occupation: Retired H&P Review of Systems - Review of Systems: Review Of Systems: ROS reveals no pertinent complaints other than HPI. Exam - Exam Exam: See Below - Vital Signs Vital Signs: Last Vital Signs Temp 97.6 F 06/23/17 05:00 Pulse 56 L 06/23/17 08:09 Resp 18 06/23/17 05:00 BP 158/78 H 06/23/17 05:00 Pulse Ox 99 06/23/17 08:09 Weight: 101.718 kg - Exam Quality Assessment: Supplemental Oxygen General: Alert, Oriented, 4 HEENT: PERRLA, Hearing Intact, Mucosa Moist & [place], Nares Patent, Normal Nasal Septum, Posterior Pharynx Clear, Conjunctiva Clear, EOMI, EACs Clear, TMs Clear Neck: Supple, Trachea Midline, 2 Lungs: Decreased Breath Sounds, Wheezing Cardiovascular: Regular Rate, Regular Rhythm GI/Abdominal Exam: Normal Bowel Sounds, Soft, Non-Tender, No Organomegaly, No Distention, No Abnormal Bruit, No Mass, Pelvis Stable (Male) Exam: No Hernia, Normal Inspection, Normal Prostate, Circumcised Rectal (Males) Exam: Normal Exam, Normal Rectal Tone, Prostate Normal Back Exam: Normal Inspection, Full Range of Motion, NT Extremities: Normal Inspection, Normal Range of Motion, Non-Tender, No Pedal Edema, Normal Capillary Refill Skin: Warm, Dry, Intact Neurological: Cranial Nerves Intact, Reflexes Equal Bilateral Neuro Extensive - Mental Status: Alert, Oriented x3, Normal Mood/Affect, Normal Cognition Neuro Extensive - Motor, Sensory, Reflexes: CN II-XII Intact, Normal Gait, Normal Reflexes Psychiatric: Alert, Normal Affect, Normal Mood - Patient Data Lab Results Last 24 hrs: Laboratory Results - last 24 hr 06/22/17 06/23/17 06/23/17 Range/Units 23:00 06:48 06:48 Sodium 136 (135-145) mmol/L Potassium 4.5 (3.5-5.3) mmol/L Chloride 90 L (100-110) mmol/L Carbon Dioxide 37 H (23-29) mmol/L BUN 43 H (8-23) mg/dL Creatinine 1.0 (0.6-1.3) mg/dL Est Cr Clr Drug Dosing 56.95 mL/min Estimated GFR (MDRD) > 60 (>60) BUN/Creatinine Ratio 43.0 H (9-20) Glucose 119 H (80-116) mg/dL Calcium 9.7 (8.6-10.2) mg/dL Total Bilirubin 0.4 (0.1-1.3) mg/dL AST 21 (5-27) IU/L ALT 14 (14-26) IU/L Alkaline Phosphatase 65 (56-112) IU/L Troponin I 0.04 0.02 (0.02-0.06) NG/ML Total Protein 6.9 (6.0-8.0) g/dL Albumin 3.8 (3.2-4.6) g/dL Globulin 3.1 g/dL Albumin/Globulin Ratio 1.2 Result Diagrams: 06/22/17 14:35 06/23/17 06:48 EKG INTERPRETATION Rhythm: NSR *Q Meaningful Use (ADM) - VTE *Q VTE Criteria *Q: - Stroke *Q Stroke Criteria *Q: - AMI *Q AMI Criteria *Q: - Problem List (1) Chest pain SNOMED Code(s): 92501551 ICD Code: R07.9 - CHEST PAIN, UNSPECIFIED Status: Acute Current Visit: Yes (2) Hypertension SNOMED Code(s): 92114756 ICD Code: I10 - ESSENTIAL (PRIMARY) HYPERTENSION Status: Acute Current Visit: No Problem Details: continue home medications. continues to complain of chronic cough that drives him nuts. he is on an ACEI and has been for some time. not willing to trial a switch. agrees to discuss with his PCP outpatient. (3) COPD, Severe chronic obstructive pulmonary disease SNOMED Code(s): 422649690 ICD Code: J44.9 - CHRONIC OBSTRUCTIVE PULMONARY DISEASE, UNSPECIFIED Status : Chronic Current Visit: No Problem Details: outpt [facility] trying to work with insurance and information assurance officer to get him on combivent. will continue his home medications for now and continue duonebs and steroid burst and taper. o2 via nc which he is chronically on at home. Problem List Initiated/Reviewed/Updated: Yes Orders Last 24hrs: Active Orders 24 hr Category Date Time Status Acetaminophen [Tylenol] Med 06/22/17 19:51 Active 650 mg PO Q6H PRN Enoxaparin [Lovenox] Med 06/23/17 17:00 Active 30 mg SUBCUT DAILY@1700 Medication Orders Acetaminophen (Tylenol) 650 mg PO Q6H PRN PRN Reason: Pain Last Admin: 06/22/17 20:22 Dose: 650 mg Albuterol/Ipratropium (Duoneb 3.0-0.5 Mg/3 Ml) 3 ml NEB Q4H PRN PRN Reason: Wheezing Last Admin: 06/23/17 07:35 Dose: 3 ml Admin: 06/22/17 20:17 Dose: 3 ml Enoxaparin Sodium (Lovenox) 30 mg SUBCUT DAILY@1700 [facility] Ketorolac Tromethamine (Toradol) 15 mg IM Q6H PRN PRN Reason: Pain (moderate 4-6) Morphine Sulfate (Morphine) 2 mg IVPUSH Q2H PRN PRN Reason: Pain (severe 7-10) Nitroglycerin (Nitrostat) 0.4 mg SL Q5M PRN PRN Reason: Chest Pain Prednisone (Prednisone) 20 mg PO BID [facility] Last Admin: 06/23/17 08:12 Dose: 20 mg Admin: 06/22/17 20:22 Dose: 20 mg Sodium Chloride (Saline Flush) 10 ml FLUSH ASDIRECTED PRN PRN Reason: Keep Vein Open Last Admin: 06/22/17 16:16 Dose: 10 ml Admin: 06/22/17 16:00 Dose: 10 ml Assessment/Plan Comment:: His x-ray and EKG were non diagnostic. Pain improved with the ketorolac. His troponin was negative 3. Upset to discharge him this morning because he is pain free,and he can follow-up with PCP.I will give him a short course of prednisone for COPD exacerbation
[2017-06-23 09:17] VITALS: BP 155/66
[2017-06-23] MEDS ORDERED: Enoxaparin 30 MG/0.3 ML Syringe SUBCUT SCH (17:00)
== END 2017-06-23 10:38 | disposition home or self-care (01) ==
LOC: FB.ED 14:07 → FB.ICU 17:03
PROVIDERS: ADMIT Family Medicine; ATTEND Family Medicine
DX: R07.9 Chest pain, unspecified (principal); I10 Essential (primary) hypertension; J44.9 Chronic obstructive pulmonary disease, unspecified; E78.00 Pure hypercholesterolemia, unspecified; N40.0 Benign prostatic hyperplasia without lower urinary tract symptoms; K59.09 Other constipation; Z88.8 Allergy status to other drugs, medicaments and biological substances; Z98.890 Other specified postprocedural states; Z96.649 Presence of unspecified artificial hip joint; Z87.891 Personal history of nicotine dependence; Z79.899 Other long term (current) drug therapy
CPT/HCPCS: 36415; 71010; 80053; 81003; 82550; 84484; 85025; 85379; 93005; 94640; 96372; 96374; 99285; A9270; G0378; J1650; J1885; J7050; J7620; 99220

== ENCOUNTER 2017-09-11 19:26 | Inpatient (IN) | payer MEDICARE, MEDICAID ==
[2017-09-11] MEDS ORDERED: Albuterol/Ipratropium 3.0-0.5 MG/3 ML Neb Soln NEB ONE (19:54)
[2017-09-11] MEDS ORDERED: methylPREDNISolone Sodium Succinate 125 MG/2 ML SDV IVPUSH ONE (19:54)
--- NOTE | 2017-09-11 20:03 | EDM.PDOC ---
ED HPI GENERAL MEDICAL PROBLEM - General Chief Complaint: Respiratory Problem Stated Complaint: SOB Time Seen by Provider: 09/11/17 19:40 Source of Information: Reports: Patient, EMS History Limitations: Reports: Physical Impairment, Respiratory Distress - History of Present Illness INITIAL COMMENTS - FREE TEXT/NARRATIVE: 82 y.o.w.m with a h/o COPD came bt EMS due to worsening of SOB. His pulse ox was 88 on RA. Pt is a poor historian. No family is present. His home meds do not work BP 161/51 RR 24 Pulse ox 93% on 3 liters O2. Temp 37.3 PE: Obese, poor airmovement, poor insp effort Onset Date: 09/10/17 Onset Time: 08:00 Duration: Day(s): Location: Reports: Chest Quality: Reports: Same as Previous Episode Severity: Moderate Improves with: Reports: Medication, Rest Worsens with: Reports: Movement Context: Reports: Other (COPD) Associated Symptoms: Reports: Cough, Shortness of Breath - Related Data Allergies Allergy/AdvReac Type Severity Reaction Status Date / Time aspirin Allergy Cannot Verified 09/11/17 19:38 Remember Home Meds: Home Meds Albuterol/Ipratropium [DuoNeb 3.0-0.5 MG/3 ML] 1 each INH QID 09/26/13 [History] Brinzolamide [Azopt 1% Ophth Susp] 1 drop EYELF BID 09/26/13 [History] Dutasteride [Avodart] 0.5 mg PO BEDTIME 09/26/13 [History] Metoprolol Succinate 25 mg PO DAILY 09/26/13 [History] Mirtazapine [Remeron] 15 mg PO BEDTIME 09/26/13 [History] Simvastatin 20 mg PO BEDTIME 09/26/13 [History] Travoprost [Travatan Z 0.004% Ophth Soln] 1 drop EYEBOTH BEDTIME 09/26/13 [ History] Potassium Chloride [Klor-Con 10] 10 meq PO DAILY #30 tab.er 09/30/13 [Rx] Furosemide [Lasix] 80 mg PO DAILY 04/10/15 [History] Losartan Potassium [Cozaar] 100 mg PO DAILY 04/10/15 [History] Acetaminophen [Tylenol] 650 mg PO BEDTIME 10/23/16 [History] Ascorbate Calcium [Vitamin C] 500 mg PO DAILY 10/23/16 [History] Benzonatate 100 mg PO TID 10/23/16 [History] amLODIPine [Norvasc] 5 mg PO DAILY 10/23/16 [History] busPIRone [Buspar] 7.5 mg PO BID 10/23/16 [History] Acetaminophen [Tylenol] 650 mg PO Q4H PRN 10/24/16 [History] Multivitamin with Minerals [Multivitamins with Minerals] 1 tab PO DAILY [History] Albuterol/Ipratropium [Combivent] 2 puff INH BID PRN 06/22/17 [History] Benzonatate [Tessalon Perles] 100 mg PO TID PRN 06/22/17 [History] Docusate Sodium/Sennosides [Senna Plus] 2 tab PO BID 06/22/17 [History] Pseudoephedrine [Sudafed 12 Hour] 120 mg PO BID PRN 06/22/17 [History] guaiFENesin/Dextromethorphan [Mucinex Dm ER 600-30 mg Tablet] 2 tab PO Q4HR PRN 06/22/17 [History] Diclofenac Sodium [Voltaren 1% Gel] 1 applic TOP TID 06/23/17 [History] Budesonide [Pulmicort] 1 each INH BID 09/11/17 [History] Melatonin 3 mg PO BEDTIME 09/11/17 [History] Polyethylene Glycol 3350 [MiraLAX] 17 gm PO DAILY 09/11/17 [History] Past Medical History HEENT History: Reports: Cataract, Glaucoma Other HEENT History: both eyes done. pt wears glassess. Cardiovascular History: Reports: High Cholesterol, Hypertension Respiratory History: Reports: COPD, Pneumothorax Other Respiratory History: COLLASPSED LUNG YEARS AGO. Gastrointestinal History: Reports: Chronic Constipation Genitourinary History: Reports: BPH, Prostate Disorder Musculoskeletal History: Reports: Arthritis, Osteoarthritis Other Musculoskeletal History: GENERALIZED ARTHRITIS Endocrine/Metabolic History: Reports: None Oncologic (Cancer) History: Reports: Other (See Below) Other Oncologic History: skin CA Dermatologic History: Reports: Other (See Below) Other Dermatologic History: Hx of skin ulcers to coccyx recently - Past Surgical History HEENT Surgical History: Reports: Cataract Surgery Respiratory Surgical History: Reports: Other (See Below) Musculoskeletal Surgical History: Reports: Hip Replacement Social & Family History - Family History Family Medical History: Noncontributory - Tobacco Use Smoking Status *Q: Former Smoker Years of Tobacco use: 20 Packs/Tins Daily: 0.5 Used Tobacco, but Quit: Yes Month Tobacco Last Used: unknown Second Hand Smoke Exposure: No - Caffeine Use Caffeine Use: Reports: Coffee Other Caffeine Use: 3 cups a day - Alcohol Use Days Per Week of Alcohol Use: 0 Number of Drinks Per Day: 1 Total Drinks Per Week: 0 - Recreational Drug Use Recreational Drug Use: No - Living Situation & Occupation Living situation: Reports: Occupation: Retired ED ROS GENERAL - Review of Systems Review Of Systems: Unable To Obtain ED EXAM, GENERAL - Physical Exam Exam: See Below Exam Limited By: Respiratory Distress General Appearance: Alert, WD/WN, Mild Distress Eye Exam: Bilateral Eye: Normal Inspection Ears: Normal External Exam Ear Exam: Bilateral Ear: Auricle Normal Nose: Other (Rhinoph) Throat/Mouth: Normal Lips, No Airway Compromise, Other (poor dentition) Head: Atraumatic, Normocephalic Neck: Normal Inspection, Supple, Non-Tender, Full Range of Motion Respiratory/Chest: Decreased Breath Sounds, Wheezing Cardiovascular: Irregularly Irregular GI/Abdominal: Normal Bowel Sounds, Soft, Non-Tender (Male) Exam: No Hernia, Deferred Rectal (Males) Exam: Deferred Back Exam: Normal Inspection, Full Range of Motion Extremities: Normal Inspection, Normal Range of Motion Neurological: Alert, CN II-XII Intact Psychiatric: Normal Affect, Normal Mood Skin Exam: Warm, Dry, Intact, Normal Color, No Rash Lymphatic: No Adenopathy Course - Vital Signs Text/Narrative:: 82 y.o.w.m with a h/o COPD came bt EMS due to worsening of SOB. His pulse ox was 88 on RA. Pt is a poor historian. No family is present. His home meds do not work BP 161/51 RR 24 Pulse ox 93% on 3 liters O2. Temp 37.3 PE: Obese, poor airmovement, poor insp effort Imaging: CXR, COPD, pleural effusions, NAD, official report is pending Labs: BNP 1211, Co2 40 GFR 56 Impression: COPD exacerbation Tx: Duoneb. Solumedrol Reexam: Improved 8.09 pm: Dr. Jay: Accepted the pt for admission Last Recorded V/S: Last Vital Signs Temp 36.3 C 09/11/17 21:00 Pulse 89 09/11/17 21:00 Resp 32 H 09/11/17 21:00 BP 164/74 H 09/11/17 21:00 Pulse Ox 89 L 09/11/17 21:00 - Orders/Labs/Meds Orders: Active Orders 24 hr Category Date Time Status RT Aerosol Therapy [RC] ASDIRECTED Care 09/11/17 19:54 Active CXR [Chest 1V Frontal] [CR] Stat Exams 09/11/17 19:55 Taken Medication Orders Docusate Sodium (Colace) 100 mg PO BID PRN PRN Reason: Constipation Ondansetron HCl (Zofran) 4 mg IV Q4H PRN PRN Reason: Nausea/Vomiting Sodium Chloride (Saline Flush) 10 ml FLUSH ASDIRECTED PRN PRN Reason: Keep Vein Open Meds: Medications Generic Name Dose Route Start Last Admin Trade Name Freq PRN Reason Stop Dose Admin Docusate Sodium 100 mg 09/11/17 20:15 Colace PO BID PRN Constipation Ondansetron HCl 4 mg 09/11/17 20:15 Zofran IV Q4H PRN Nausea/Vomiting Sodium Chloride 10 ml 09/11/17 20:15 Saline Flush FLUSH ASDIRECTED PRN Keep Vein Open Discontinued Medications Generic Name Dose Route Start Last Admin Trade Name Freq PRN Reason Stop Dose Admin Albuterol/Ipratropium 3 ml 09/11/17 19:54 09/11/17 20:06 Duoneb 3.0-0.5 Mg/3 Ml NEB 09/11/17 19:55 3 ml ONETIME ONE Administration Methylprednisolone Sodium Succinate 125 mg 09/11/17 19:54 09/11/17 20:06 Solu-Medrol IVPUSH 09/11/17 19:55 125 mg ONETIME ONE Administration Departure - Departure Time of Disposition: 08:00 Disposition: Admitted As Inpatient 66 Condition: Fair Clinical Impression: COPD (chronic obstructive pulmonary disease) Qualifiers: COPD type: emphysema Emphysema type: centrilobular Qualified Code(s): J43.2 - Centrilobular emphysema - Discharge Information - My Orders Last 24 Hours: My Active Orders 09/11/17 19:54 RT Aerosol Therapy [RC] ASDIRECTED 09/11/17 19:55 CXR [Chest 1V Frontal] [CR] Stat - Assessment/Plan Last 24 Hours: My Active Orders 09/11/17 19:54 RT Aerosol Therapy [RC] ASDIRECTED 09/11/17 19:55 CXR [Chest 1V Frontal] [CR] Stat
[2017-09-11] MEDS ORDERED: Ondansetron 4 MG/2 ML SDV IV PRN (20:15)
[2017-09-11] MEDS ORDERED: Albuterol/Ipratropium 3.0-0.5 MG/3 ML Neb Soln INH PRN (20:15)
[2017-09-11] MEDS ORDERED: Docusate Sodium 100 MG Cap PO PRN (20:15)
[2017-09-12] MEDS ORDERED: Benzonatate 100 MG Cap PO PRN (07:56)
[2017-09-12] MEDS ORDERED: Acetaminophen 325 MG Tab PO PRN (07:56)
[2017-09-12] MEDS ORDERED: Pseudoephedrine 120 MG Tab.ER PO PRN (07:56)
[2017-09-12] MEDS: busPIRone 15 MG Tab PO SCH ×2 (08:32→20:04)
[2017-09-12] MEDS: Budesonide 0.5 MG/2 ML Neb Susp INH SCH ×2 (08:33→20:05)
[2017-09-12] MEDS: Polyethylene Glycol 3350 Powder 17 GM Packet PO SCH (08:52)
--- NOTE | 2017-09-12 08:52 | PCM.HP ---
H&P History of Present Illness - General Date of Service: 09/12/17 Admit Problem/Dx: Admission Diagnosis/Problem Admission Diagnosis/Problem COPD, Moderate chronic obstructive pulmonary disease Source of Information: Patient, [facility]pc Records, Old Records History Limitations: Reports: Other (Poor historian) - History of Present Illness Initial Comments - Free Text/Narative: 82-year-old male with a 20 pack history of smoking came in with shortness of breath. He has a history of COPD that is oxygen dependent,3L by [facility] [place]. Is from [facility]. He was brought in by ambulance last night because of worsening shortness of breath with no oxygenation. He has a cough wheezing but denies any fever or chills. He was here in March with the symptoms symptoms including localized left-sided chronic chest pain. He has hypertension stable anxiety that is poorly controlled. - Related Data Allergies/Adverse Reactions: Allergies Allergy/AdvReac Type Severity Reaction Status Date / Time aspirin Allergy Cannot Verified 09/11/17 19:38 Remember Home Medications: Home Meds Albuterol/Ipratropium [DuoNeb 3.0-0.5 MG/3 ML] 1 each INH QID 09/26/13 [History] Brinzolamide [Azopt 1% Ophth Susp] 1 drop EYELF BID 09/26/13 [History] Dutasteride [Avodart] 0.5 mg PO BEDTIME 09/26/13 [History] Metoprolol Succinate 25 mg PO DAILY 09/26/13 [History] Mirtazapine [Remeron] 15 mg PO BEDTIME 09/26/13 [History] Simvastatin 20 mg PO BEDTIME 09/26/13 [History] Travoprost [Travatan Z 0.004% Ophth Soln] 1 drop EYEBOTH BEDTIME 09/26/13 [ History] Potassium Chloride [Klor-Con 10] 10 meq PO DAILY #30 tab.er 09/30/13 [Rx] Furosemide [Lasix] 80 mg PO DAILY 04/10/15 [History] Losartan Potassium [Cozaar] 100 mg PO DAILY 04/10/15 [History] Acetaminophen [Tylenol] 650 mg PO BEDTIME 10/23/16 [History] Ascorbate Calcium [Vitamin C] 500 mg PO DAILY 10/23/16 [History] Benzonatate 100 mg PO TID 10/23/16 [History] amLODIPine [Norvasc] 5 mg PO DAILY 10/23/16 [History] busPIRone [Buspar] 7.5 mg PO BID 10/23/16 [History] Acetaminophen [Tylenol] 650 mg PO Q4H PRN 10/24/16 [History] Multivitamin with Minerals [Multivitamins with Minerals] 1 tab PO DAILY [History] Albuterol/Ipratropium [Combivent] 2 puff INH BID PRN 06/22/17 [History] Benzonatate [Tessalon Perles] 100 mg PO TID PRN 06/22/17 [History] Docusate Sodium/Sennosides [Senna Plus] 2 tab PO BID 06/22/17 [History] Pseudoephedrine [Sudafed 12 Hour] 120 mg PO BID PRN 06/22/17 [History] guaiFENesin/Dextromethorphan [Mucinex Dm ER 600-30 mg Tablet] 2 tab PO Q4HR PRN 06/22/17 [History] Diclofenac Sodium [Voltaren 1% Gel] 1 applic TOP TID 06/23/17 [History] Budesonide [Pulmicort] 1 each INH BID 09/11/17 [History] Melatonin 3 mg PO BEDTIME 09/11/17 [History] Polyethylene Glycol 3350 [MiraLAX] 17 gm PO DAILY 09/11/17 [History] Dextromethorphan/guaiFENesin [Robitussin DM] 5 ml PO Q4H PRN 09/12/17 [History] Past Medical History HEENT History: Reports: Cataract, Glaucoma Other HEENT History: both eyes done. pt wears glassess. Cardiovascular History: Reports: High Cholesterol, Hypertension Respiratory History: Reports: COPD, Pneumothorax Other Respiratory History: COLLASPSED LUNG YEARS AGO. Gastrointestinal History: Reports: Chronic Constipation Genitourinary History: Reports: BPH, Prostate Disorder Musculoskeletal History: Reports: Arthritis, Osteoarthritis Other Musculoskeletal History: GENERALIZED ARTHRITIS Endocrine/Metabolic History: Reports: None Oncologic (Cancer) History: Reports: Other (See Below) Other Oncologic History: skin CA Dermatologic History: Reports: Other (See Below) Other Dermatologic History: Hx of skin ulcers to coccyx recently - Past Surgical History HEENT Surgical History: Reports: Cataract Surgery Respiratory Surgical History: Reports: Other (See Below) Musculoskeletal Surgical History: Reports: Hip Replacement Social & Family History - Family History Family Medical History: Noncontributory - Tobacco Use Smoking Status *Q: Former Smoker Years of Tobacco use: 20 Packs/Tins Daily: 0.5 Used Tobacco, but Quit: Yes Month Tobacco Last Used: unknown Second Hand Smoke Exposure: No - Caffeine Use Caffeine Use: Reports: Coffee Other Caffeine Use: 3 cups a day - Alcohol Use Days Per Week of Alcohol Use: 0 Number of Drinks Per Day: 1 Total Drinks Per Week: 0 - Recreational Drug Use Recreational Drug Use: No - Living Situation & Occupation Living situation: Reports: Occupation: Retired H&P Review of Systems - Review of Systems: Review Of Systems: ROS reveals no pertinent complaints other than HPI. Exam - Exam Exam: See Below - Vital Signs Vital Signs: Last Vital Signs Temp 97.9 F 09/12/17 04:45 Pulse 91 09/12/17 04:45 Resp 30 H 09/12/17 04:45 BP 166/79 H 09/12/17 04:45 Pulse Ox 90 L 09/12/17 04:45 Weight: 105.687 kg - Exam Quality Assessment: Supplemental Oxygen General: Alert, Oriented, Mild Distress HEENT: PERRLA, Hearing Intact, Mucosa Moist & Antoine, Nares Patent, Normal Nasal Septum, Posterior Pharynx Clear, Conjunctiva Clear, EOMI, EACs Clear, TMs Clear Neck: Supple, Trachea Midline, 2 Lungs: Decreased Breath Sounds, Wheezing Cardiovascular: Tachycardia. No: Systolic Murmur, Diastolic Murmur, Rubs, Gallop/S3 GI/Abdominal Exam: Normal Bowel Sounds, Soft, Non-Tender, No Organomegaly, No Distention, No Abnormal Bruit, No Mass, Pelvis Stable (Male) Exam: Deferred Rectal (Males) Exam: Deferred Back Exam: Normal Inspection, Full Range of Motion, NT Extremities: Pedal Edema Skin: Warm, Dry, Intact Neurological: Cranial Nerves Intact, Reflexes Equal Bilateral Neuro Extensive - Mental Status: Alert, Oriented x3, Normal Mood/Affect, Normal Cognition Neuro Extensive - Motor, Sensory, Reflexes: CN II-XII Intact, Normal Gait, Normal Reflexes Psychiatric: Anxious, Agitated - Patient Data Lab Results Last 24 hrs: Laboratory Results - last 24 hr 09/11/17 Range/Units 20:38 Urine Color Yellow (YELLOW) Urine Appearance Clear (CLEAR) Urine pH 5.0 (5.0-6.5) Ur Specific Alpha 1.020 (1.010-1.025) Urine Protein 30 H (NEGATIVE) mg/dL Urine Glucose (UA) Normal (NEGATIVE) mg/dL Urine Ketones Negative (NEGATIVE) mg/dL Urine Occult Blood Negative (NEGATIVE) Urine Nitrite Negative (NEGATIVE) Urine Bilirubin Negative (NEGATIVE) Urine Urobilinogen Normal (NEGATIVE) mg/dL Ur Leukocyte Esterase Negative (NEGATIVE) Urine RBC 0-5 (0) Urine WBC 0-5 (0) Ur Squamous Epith Cells Rare (NS,R,O) Urine Bacteria Rare H (NS) Hyaline Casts Rare H (NS) Result Diagrams: 09/11/17 20:15 09/11/17 20:15 Imaging Impressions Last 24 hrs: X ray non diagnostic EKG INTERPRETATION Rhythm: NSR *Q Meaningful Use (ADM) - VTE *Q VTE Criteria *Q: - Stroke *Q Stroke Criteria *Q: - AMI *Q AMI Criteria *Q: - Problem List (1) Anxiety SNOMED Code(s): 05784523 ICD Code: F41.9 - ANXIETY DISORDER, UNSPECIFIED Status: Acute Current Visit: Yes (2) COPD (chronic obstructive pulmonary disease) SNOMED Code(s): 12863626 ICD Code: J44.9 - CHRONIC OBSTRUCTIVE PULMONARY DISEASE, UNSPECIFIED Status : Acute Current Visit: Yes Qualifiers: COPD type: emphysema Emphysema type: centrilobular Qualified Code(s): J43.2 - Centrilobular emphysema (3) BPH (benign prostatic hyperplasia) SNOMED Code(s): 045037347 ICD Code: N40.0 - BENIGN PROSTATIC HYPERPLASIA WITHOUT LOWER URINRY TRACT SYMP Status: Acute Current Visit: No Qualifiers: Lower urinary tract symptom presence: symptoms present (4) Chest pain SNOMED Code(s): 75249888 ICD Code: R07.9 - CHEST PAIN, UNSPECIFIED Status: Acute Current Visit: No Qualifiers: Chest pain type: precordial pain Qualified Code(s): R07.2 - Precordial pain (5) Hypertension SNOMED Code(s): 61908954 ICD Code: I10 - ESSENTIAL (PRIMARY) HYPERTENSION Status: Acute Current Visit: No Problem Details: continue home medications. continues to complain of chronic cough that drives him nuts. he is on an ACEI and has been for some time. not willing to trial a switch. agrees to discuss with his PCP outpatient. Qualifiers: Hypertension type: essential hypertension Qualified Code(s): I10 - Essential (primary) hypertension (6) Hx of congestive heart failure SNOMED Code(s): 656404382 ICD Code: Z86.79 - PERSONAL HISTORY OF OTHER DISEASES OF THE CIRCULATORY SYSTEM Status: Chronic Priority: High Current Visit: No Problem List Initiated/Reviewed/Updated: Yes Orders Last 24hrs: Active Orders 24 hr Category Date Time Status RT Aerosol Therapy [RC] ASDIRECTED Care 09/12/17 08:49 Ordered BASIC METABOLIC PANEL,BMP [CHEM] AM Lab 09/13/17 05:11 Ordered CBC WITH AUTO DIFF [HEME] AM Lab 09/13/17 05:11 Ordered PRO B-TYPE NATRIUR PEPT,BNPPRO [CHEM] DAILY Lab 09/13/17 05:11 Ordered PRO B-TYPE NATRIUR PEPT,BNPPRO [CHEM] DAILY Lab 09/14/17 05:11 Ordered PRO B-TYPE NATRIUR PEPT,BNPPRO [CHEM] DAILY Lab 09/15/17 05:11 Ordered Acetaminophen [Tylenol] Med 09/12/17 21:00 Active 650 mg PO BEDTIME Acetaminophen [Tylenol] Med 09/12/17 07:56 Active 650 mg PO Q4H PRN Albuterol/Ipratropium [DuoNeb 3.0-0.5 MG/3 ML] Med 09/12/17 11:00 Ordered 3 ml NEB QIDRT Ascorbic Acid [Vitamin C] Med 09/12/17 09:00 Active 500 mg PO DAILY Benzonatate [Tessalon Perles] Med 09/12/17 09:00 Active 100 mg PO TID Benzonatate [Tessalon Perles] Med 09/12/17 07:56 Active 100 mg PO TID PRN Budesonide [Pulmicort] Med 09/12/17 09:00 Active 0.5 mg INH BID ClonazePAM [KlonoPIN] Med 09/12/17 08:49 Ordered 0.25 mg PO TID PRN Diclofenac Sodium [Voltaren 1% Gel] Med 09/12/17 09:00 Ordered DOSE gm TOP TID Docusate Sodium/Sennosides [Senna Plus] Med 09/12/17 09:00 Active 2 tab PO BID Dorzolamide [Trusopt 2% Ophth Soln] Med 09/12/17 09:00 Active 0 ml EYELF BID Dutasteride [Avodart] Med 09/12/17 21:00 Active 0.5 mg PO BEDTIME Furosemide [Lasix] Med 09/12/17 09:00 Active 80 mg PO DAILY Latanoprost [Xalatan 0.005% Ophth Soln] Med 09/12/17 21:00 Active 0 ml EYEBOTH BEDTIME Levofloxacin/Dextrose 5%-Water [Levaquin in D5W 500 MG/ Med 09/12/17 09:00 Ordered 100 ML] 500 mg Premix Bag 1 bag IV Q24H Losartan [Cozaar] Med 09/12/17 09:00 Active 100 mg PO DAILY Metoprolol Succinate [Toprol XL] Med 09/12/17 09:00 Active 25 mg PO DAILY Mirtazapine [Remeron] Med 09/12/17 21:00 Active 15 mg PO BEDTIME Multivitamins/Minerals [Vitamins and Minerals] Med 09/12/17 09:00 Active 1 tab PO DAILY Polyethylene Glycol 3350 [MiraLAX] Med 09/12/17 09:00 Active 17 gm PO DAILY Potassium Chloride [Klor-Con 10] Med 09/12/17 09:00 Active 10 meq PO DAILY Pseudoephedrine [Sudafed 12 Hour] Med 09/12/17 07:56 Active 120 mg PO BID PRN Simvastatin [Zocor] Med 09/12/17 21:00 Active 20 mg PO BEDTIME amLODIPine [Norvasc] Med 09/12/17 09:00 Active 5 mg PO DAILY busPIRone [Buspar] Med 09/12/17 09:00 Active 7.5 mg PO BID methylPREDNISolone Sod Succ [Solu-MEDROL] Med 09/12/17 09:00 Ordered 125 mg IVPUSH Q8H Medication Orders Acetaminophen (Tylenol) 650 mg PO BEDTIME [facility]ARGARET Acetaminophen (Tylenol) 650 mg PO Q4H PRN PRN Reason: Pain/Fever Albuterol/Ipratropium (Duoneb 3.0-0.5 Mg/3 Ml) 3 ml NEB QIDRT [facility]ARG[facility]ET Amlodipine Besylate (Norvasc) 5 mg PO DAILY [facility] Ascorbic Acid (Vitamin C) 500 mg PO DAILY [facility] Benzonatate (Tessalon Perles) 100 mg PO TID [facility]ARG[facility]ET Benzonatate (Tessalon Perles) 100 mg PO TID PRN PRN Reason: Cough Budesonide (Pulmicort) 0.5 mg INH BID [facility] Last Admin: 09/12/17 08:33 Dose: 0.5 mg Buspirone HCl (Buspar) 7.5 mg PO BID [facility] Last Admin: 09/12/17 08:32 Dose: 7.5 mg Diclofenac Sodium (Voltaren 1% Gel) gm TOP TID [facility]ARG[facility] Docusate Sodium (Colace) 100 mg PO BID PRN PRN Reason: Constipation Dorzolamide HCl (Trusopt 2% Ophth Soln) 0 ml EYELF BID [facility] Dutasteride (Avodart) 0.5 mg PO BEDTIME [facility] Furosemide (Lasix) 80 mg PO DAILY [facility] Levofloxacin/Dextrose 500 mg/ (Premix) 100 mls @ 100 mls/hr IV Q24H [facility] Latanoprost (Xalatan 0.005% Ophth Soln) 0 ml EYEBOTH BEDTIME [facility] Losartan Potassium (Cozaar) 100 mg PO DAILY [facility] Methylprednisolone Sodium Succinate (Solu-Medrol) 125 mg IVPUSH Q8H [facility] Metoprolol Succinate (Toprol Xl) 25 mg PO DAILY [facility] Mirtazapine (Remeron) 15 mg PO BEDTIME [facility] Multivitamins/Minerals (Vitamins And Minerals) 1 tab PO DAILY [facility] Ondansetron HCl (Zofran) 4 mg IV Q4H PRN PRN Reason: Nausea/Vomiting Polyethylene Glycol (Miralax) 17 gm PO DAILY [facility] Potassium Chloride (Klor-Con 10) 10 meq PO DAILY [facility] Pseudoephedrine HCl (Sudafed 12 Hour) 120 mg PO BID PRN PRN Reason: Cough Senna/Docusate Sodium (Senna Plus) 2 tab PO BID [facility] Simvastatin (Zocor) 20 mg PO BEDTIME [facility] Sodium Chloride (Saline Flush) 10 ml FLUSH ASDIRECTED PRN PRN Reason: Keep Vein Open Assessment/Plan Comment:: Admit him for COPD exacerbation. I will give him Solu-Medrol, when necessary SVNs, and Levaquin for COPD. Also, his x-ray does have an infiltrate on the left middle. I repeat blood work in the morning. I've resumed all his medications, including oral Lasix and added Klonopin as needed for agitation and anxiety. He continues oxygenation at 3L per home order.
[2017-09-12] MEDS: Losartan 100 MG Tab PO SCH (08:53)
[2017-09-12] MEDS: Furosemide 80 MG Tab PO SCH (08:54)
[2017-09-12] MEDS: amLODIPine 5 MG Tab PO SCH (08:54)
[2017-09-12] MEDS: Potassium Chloride 10 MEQ Tab.ER PO SCH (08:54)
[2017-09-12] MEDS: Benzonatate 100 MG Cap PO SCH ×4 (08:55→20:06)
[2017-09-12] MEDS: Dorzolamide 2% Ophth Soln 10 ML Bottle EYELF SCH ×2 (08:56→20:06)
[2017-09-12] MEDS: Metoprolol Succinate 25 MG Tab.ER PO SCH (08:56)
[2017-09-12] MEDS: Ascorbic Acid 500 MG Tab PO SCH (08:58)
[2017-09-12] MEDS: Multivitamins, Therapeutic with Minerals Tab PO SCH (08:58)
[2017-09-12] MEDS ORDERED: Albuterol/Ipratropium 3.0-0.5 MG/3 ML Neb Soln NEB PRN (08:59)
[2017-09-12] MEDS ORDERED: Diclofenac Sodium 1% Gel 100 GM Tube TOP SCH (09:00)
[2017-09-12] MEDS: methylPREDNISolone Sodium Succinate 125 MG/2 ML SDV IVPUSH SCH ×2 (09:07→16:17)
[2017-09-12] MEDS: Sodium Chloride 0.9% 10 ML Syringe FLUSH PRN ×2 (09:07→10:25)
[2017-09-12] MEDS: Albuterol/Ipratropium 3.0-0.5 MG/3 ML Neb Soln NEB SCH ×4 (09:10→20:05)
[2017-09-12] MEDS: Levofloxacin/Dextrose 5%-Water 500 MG in Premix Bag 1 BAG IV SCH (09:16)
[2017-09-12] MEDS: Dutasteride 0.5 MG Cap PO SCH (20:04)
[2017-09-12] MEDS: Mirtazapine 15 MG Tab PO SCH (20:05)
[2017-09-12] MEDS: Latanoprost 0.005% Ophth Soln 2.5 ML Bottle EYEBOTH SCH (20:07)
[2017-09-12] MEDS: Simvastatin 20 MG Tab PO SCH (20:09)
[2017-09-12] MEDS: Acetaminophen 325 MG Tab PO SCH (20:09)
[2017-09-13] MEDS: methylPREDNISolone Sodium Succinate 125 MG/2 ML SDV IVPUSH SCH ×3 (01:03→17:43)
[2017-09-13] MEDS: Sodium Chloride 0.9% 10 ML Syringe FLUSH PRN ×2 (01:06→10:24)
[2017-09-13] MEDS: ClonazePAM 0.5 MG Tab PO PRN (01:14)
[2017-09-13] MEDS: Albuterol/Ipratropium 3.0-0.5 MG/3 ML Neb Soln NEB SCH ×4 (06:23→20:23)
[2017-09-13] MEDS: Benzonatate 100 MG Cap PO SCH ×3 (08:33→20:24)
[2017-09-13] MEDS: Potassium Chloride 10 MEQ Tab.ER PO SCH (08:34)
[2017-09-13] MEDS: Losartan 100 MG Tab PO SCH (08:34)
[2017-09-13] MEDS: busPIRone 15 MG Tab PO SCH ×2 (08:34→20:22)
[2017-09-13] MEDS: Furosemide 80 MG Tab PO SCH (08:35)
[2017-09-13] MEDS: Polyethylene Glycol 3350 Powder 17 GM Packet PO SCH (08:35)
[2017-09-13] MEDS: Budesonide 0.5 MG/2 ML Neb Susp INH SCH ×2 (08:36→20:23)
[2017-09-13] MEDS: amLODIPine 5 MG Tab PO SCH (08:36)
[2017-09-13] MEDS: Dorzolamide 2% Ophth Soln 10 ML Bottle EYELF SCH ×2 (08:37→20:24)
[2017-09-13] MEDS: Metoprolol Succinate 25 MG Tab.ER PO SCH (08:37)
[2017-09-13] MEDS: Multivitamins, Therapeutic with Minerals Tab PO SCH (08:38)
[2017-09-13] MEDS: Ascorbic Acid 500 MG Tab PO SCH (08:38)
[2017-09-13] MEDS: Levofloxacin/Dextrose 5%-Water 500 MG in Premix Bag 1 BAG IV SCH (08:48)
--- NOTE | 2017-09-13 09:00 | PCM.PN ---
- General Info Date of Service: 09/13/17 Admission Dx/Problem (Free Text): Admission Diagnosis/Problem Admission Diagnosis/Problem COPD, Moderate chronic obstructive pulmonary disease Subjective Update: Patient slept well, overnight feels better and breathing better today but is not ready to go home yet. He has no new symptoms except for the cough wheezing or shortness of breath mildly anxious. The Klonopin helps significantly. - Review of Systems HEENT: Reports: No Symptoms Gastrointestinal: Reports: No Symptoms Genitourinary: Reports: No Symptoms - Patient Data Vitals - Most Recent: Last Vital Signs Temp 97.8 F 09/13/17 00:03 Pulse 81 09/13/17 08:37 Resp 26 H 09/13/17 00:03 BP 134/78 09/13/17 08:37 Pulse Ox 91 L 09/13/17 00:03 Weight - Most Recent: 105.097 kg I&O - Last 24 Hours: Intake & Output 09/12/17 09/13/17 09/13/17 22:59 06:59 14:59 Intake Total 250 Balance 250 Lab Results Last 24 Hours: Laboratory Results - last 24 hr 09/13/17 09/13/17 09/13/17 Range/Units 06:10 06:10 06:10 WBC 12.2 H (4.5-12.0) X10-3/uL RBC 4.44 (4.30-5.75) x10(6)uL Hgb 12.1 (11.5-15.5) g/dL Hct 38.2 (30.0-51.3) % MCV 86.0 (80-96) fL MCH 27.2 L (27.7-33.6) pg MCHC 31.6 L (32.2-35.4) g/dL RDW 15.4 (11.5-15.5) % Plt Count 265 (125-369) X10(3)uL MPV 8.5 (7.4-10.4) fL Add Manual Diff Yes Neutrophils % (Manual) 88 H (46-82) % Lymphocytes % (Manual) 10 L (13-37) % Monocytes % (Manual) 2 L (4-12) % Sodium 142 (135-145) mmol/L Potassium 4.7 (3.5-5.3) mmol/L Chloride 98 L (100-110) mmol/L Carbon Dioxide 43 H* (21-32) mmol/L BUN 46 H (7-18) mg/dL Creatinine 1.3 (0.70-1.30) mg/dL Est Cr Clr Drug Dosing 43.81 mL/min Estimated GFR (MDRD) 53 L (>60) BUN/Creatinine Ratio 35.4 H (9-20) Glucose 153 H (80-116) mg/dL Calcium 10.1 (8.6-10.2) mg/dL NT-Pro-B Natriuret Pep 1237 H* (<=450) pg/mL Med Orders - Current: Current Medications Acetaminophen (Tylenol) 650 mg PO BEDTIME [facility] Last Admin: 09/12/17 20:09 Dose: 650 mg Acetaminophen (Tylenol) 650 mg PO Q4H PRN PRN Reason: Pain/Fever Albuterol/Ipratropium (Duoneb 3.0-0.5 Mg/3 Ml) 3 ml NEB QIDRT [facility] Last Admin: 09/13/17 06:23 Dose: 3 ml Albuterol/Ipratropium (Duoneb 3.0-0.5 Mg/3 Ml) 3 ml NEB Q4H PRN PRN Reason: BREATHING Amlodipine Besylate (Norvasc) 5 mg PO DAILY [facility] Last Admin: 09/13/17 08:36 Dose: 5 mg Ascorbic Acid (Vitamin C) 500 mg PO DAILY [facility] Last Admin: 09/13/17 08:38 Dose: 500 mg Benzonatate (Tessalon Perles) 100 mg PO TID PRN PRN Reason: Cough Benzonatate (Tessalon Perles) 100 mg PO TID@0800,1200,2100 [facility] Last Admin: 09/13/17 08:33 Dose: 100 mg Budesonide (Pulmicort) 0.5 mg INH BID [facility] Last Admin: 09/13/17 08:36 Dose: 0.5 mg Buspirone HCl (Buspar) 7.5 mg PO BID [facility] Last Admin: 09/13/17 08:34 Dose: 7.5 mg Clonazepam (Klonopin) 0.25 mg PO TID PRN PRN Reason: Anxiety Last Admin: 09/13/17 01:14 Dose: 0.25 mg Diclofenac Sodium (Voltaren 1% Gel) gm TOP TID [facility] Docusate Sodium (Colace) 100 mg PO BID PRN PRN Reason: Constipation Dorzolamide HCl (Trusopt 2% Ophth Soln) 0 ml EYELF BID [facility] Last Admin: 09/13/17 08:37 Dose: 1 drop Dutasteride (Avodart) 0.5 mg PO BEDTIME [facility] Last Admin: 09/12/17 20:04 Dose: 0.5 mg Furosemide (Lasix) 80 mg PO DAILY [facility] Last Admin: 09/13/17 08:35 Dose: 80 mg Levofloxacin/Dextrose 500 mg/ (Premix) 100 mls @ 100 mls/hr IV Q24H [facility] Last Admin: 09/13/17 08:48 Dose: 100 mls/hr Latanoprost (Xalatan 0.005% Ophth Soln) 0 ml EYEBOTH BEDTIME [facility] Last Admin: 09/12/17 20:07 Dose: 1 drop Losartan Potassium (Cozaar) 100 mg PO DAILY [facility] Last Admin: 09/13/17 08:34 Dose: 100 mg Methylprednisolone Sodium Succinate (Solu-Medrol) 125 mg IVPUSH Q8H [facility] Last Admin: 09/13/17 08:37 Dose: 125 mg Metoprolol Succinate (Toprol Xl) 25 mg PO DAILY [facility] Last Admin: 09/13/17 08:37 Dose: 25 mg Mirtazapine (Remeron) 15 mg PO BEDTIME [facility] Last Admin: 09/12/17 20:05 Dose: 15 mg Multivitamins/Minerals (Vitamins And Minerals) 1 tab PO DAILY [facility] Last Admin: 09/13/17 08:38 Dose: 1 tab Ondansetron HCl (Zofran) 4 mg IV Q4H PRN PRN Reason: Nausea/Vomiting Polyethylene Glycol (Miralax) 17 gm PO DAILY [facility] Last Admin: 09/13/17 08:35 Dose: 17 gm Potassium Chloride (Klor-Con 10) 10 meq PO DAILY [facility] Last Admin: 09/13/17 08:34 Dose: 10 meq Pseudoephedrine HCl (Sudafed 12 Hour) 120 mg PO BID PRN PRN Reason: Cough Senna/Docusate Sodium (Senna Plus) 2 tab PO BID [facility] Last Admin: 09/13/17 08:36 Dose: 2 tab Simvastatin (Zocor) 20 mg PO BEDTIME [facility] Last Admin: 09/12/17 20:09 Dose: 20 mg Sodium Chloride (Saline Flush) 10 ml FLUSH ASDIRECTED PRN PRN Reason: Keep Vein Open Last Admin: 09/13/17 01:06 Dose: 10 ml Discontinued Medications Albuterol/Ipratropium (Duoneb 3.0-0.5 Mg/3 Ml) 3 ml NEB ONETIME ONE Stop: 09/11/17 19:55 Last Admin: 09/11/17 20:06 Dose: 3 ml Benzonatate (Tessalon Perles) 100 mg PO TID [facility] Last Admin: 09/12/17 14:22 Dose: Not Given Methylprednisolone Sodium Succinate (Solu-Medrol) 125 mg IVPUSH ONETIME ONE Stop: 09/11/17 19:55 Last Admin: 09/11/17 20:06 Dose: 125 mg - Exam Quality Assessment: Supplemental Oxygen General: Alert, Oriented HEENT: Pupils Equal Lungs: Decreased Breath Sounds, Rhonchi Cardiovascular: Regular Rate, Regular Rhythm Psy/Mental Status: Alert, Normal Affect, Normal Mood - Problem List & Annotations (1) Anxiety SNOMED Code(s): 51224757 Code(s): F41.9 - ANXIETY DISORDER, UNSPECIFIED Status: Acute Current Visit: Yes (2) COPD (chronic obstructive pulmonary disease) SNOMED Code(s): 71617080 Code(s): J44.9 - CHRONIC OBSTRUCTIVE PULMONARY DISEASE, UNSPECIFIED Status : Acute Current Visit: Yes Qualifiers: COPD type: emphysema Emphysema type: centrilobular Qualified Code(s): J43.2 - Centrilobular emphysema (3) BPH (benign prostatic hyperplasia) SNOMED Code(s): 744158345 Code(s): N40.0 - BENIGN PROSTATIC HYPERPLASIA WITHOUT LOWER URINRY TRACT SYMP Status: Acute Current Visit: No Qualifiers: Lower urinary tract symptom presence: symptoms present (4) Chest pain SNOMED Code(s): 32492454 Code(s): R07.9 - CHEST PAIN, UNSPECIFIED Status: Acute Current Visit: No Qualifiers: Chest pain type: precordial pain Qualified Code(s): R07.2 - Precordial pain (5) Hypertension SNOMED Code(s): 29871626 Code(s): I10 - ESSENTIAL (PRIMARY) HYPERTENSION Status: Acute Current Visit: No Qualifiers: Hypertension type: essential hypertension Qualified Code(s): I10 - Essential (primary) hypertension Annotation/Comment:: continue home medications. continues to complain of chronic cough that drives him nuts. he is on an ACEI and has been for some time. not willing to trial a switch. agrees to discuss with his PCP outpatient. (6) Hx of congestive heart failure SNOMED Code(s): 617329007 Code(s): Z86.79 - PERSONAL HISTORY OF OTHER DISEASES OF THE CIRCULATORY SYSTEM Status: Chronic Priority: High Current Visit: No - Problem List Review Problem List Initiated/Reviewed/Updated: Yes - My Orders Last 24 Hours: My Active Orders 09/12/17 08:49 RT Aerosol Therapy [RC] ASDIRECTED ClonazePAM [KlonoPIN] 0.25 mg PO TID PRN 09/12/17 08:59 Albuterol/Ipratropium [DuoNeb 3.0-0.5 MG/3 ML] 3 ml NEB Q4H PRN 09/12/17 09:00 Albuterol/Ipratropium [DuoNeb 3.0-0.5 MG/3 ML] 3 ml NEB QIDRT Ascorbic Acid [Vitamin C] 500 mg PO DAILY Budesonide [Pulmicort] 0.5 mg INH BID Diclofenac Sodium [Voltaren 1% Gel] DOSE gm TOP TID Docusate Sodium/Sennosides [Senna Plus] 2 tab PO BID Dorzolamide [Trusopt 2% Ophth Soln] 0 ml EYELF BID Furosemide [Lasix] 80 mg PO DAILY Levofloxacin/Dextrose 5%-Water [Levaquin in D5W 500 MG/100 ML] 500 mg Premix Bag 1 bag IV Q24H Losartan [Cozaar] 100 mg PO DAILY Metoprolol Succinate [Toprol XL] 25 mg PO DAILY Multivitamins/Minerals [Vitamins and Minerals] 1 tab PO DAILY Polyethylene Glycol 3350 [MiraLAX] 17 gm PO DAILY Potassium Chloride [Klor-Con 10] 10 meq PO DAILY amLODIPine [Norvasc] 5 mg PO DAILY busPIRone [Buspar] 7.5 mg PO BID methylPREDNISolone Sod Succ [Solu-MEDROL] 125 mg IVPUSH Q8H 09/12/17 21:00 Acetaminophen [Tylenol] 650 mg PO BEDTIME Benzonatate [Tessalon Perles] 100 mg PO TID@0800,1200,2100 Dutasteride [Avodart] 0.5 mg PO BEDTIME Latanoprost [Xalatan 0.005% Ophth Soln] 0 ml EYEBOTH BEDTIME Mirtazapine [Remeron] 15 mg PO BEDTIME Simvastatin [Zocor] 20 mg PO BEDTIME 09/14/17 05:11 PRO B-TYPE NATRIUR PEPT,BNPPRO [CHEM] DAILY 09/15/17 05:11 PRO B-TYPE NATRIUR PEPT,BNPPRO [CHEM] DAILY - Plan Plan:: Continue with current treatment, encourage ambulation, incentive spirometry, with a few discharge tomorrow.
[2017-09-13] MEDS: Mirtazapine 15 MG Tab PO SCH (20:23)
[2017-09-13] MEDS: Acetaminophen 325 MG Tab PO SCH (20:24)
[2017-09-13] MEDS: Latanoprost 0.005% Ophth Soln 2.5 ML Bottle EYEBOTH SCH (20:24)
[2017-09-13] MEDS: Dutasteride 0.5 MG Cap PO SCH (20:25)
[2017-09-13] MEDS: Simvastatin 20 MG Tab PO SCH (20:25)
[2017-09-14] MEDS: methylPREDNISolone Sodium Succinate 125 MG/2 ML SDV IVPUSH SCH ×2 (01:23→08:15)
[2017-09-14] MEDS: Sodium Chloride 0.9% 10 ML Syringe FLUSH PRN ×2 (01:23→08:15)
[2017-09-14] MEDS: ClonazePAM 0.5 MG Tab PO PRN ×2 (01:30→08:31)
[2017-09-14] MEDS: Albuterol/Ipratropium 3.0-0.5 MG/3 ML Neb Soln NEB SCH (07:30)
[2017-09-14] MEDS: Losartan 100 MG Tab PO SCH (08:11)
[2017-09-14] MEDS: Benzonatate 100 MG Cap PO SCH (08:11)
[2017-09-14] MEDS: Ascorbic Acid 500 MG Tab PO SCH (08:11)
[2017-09-14] MEDS: amLODIPine 5 MG Tab PO SCH (08:12)
[2017-09-14] MEDS: busPIRone 15 MG Tab PO SCH (08:12)
[2017-09-14] MEDS: Potassium Chloride 10 MEQ Tab.ER PO SCH (08:12)
[2017-09-14] MEDS: Furosemide 80 MG Tab PO SCH (08:13)
[2017-09-14] MEDS: Metoprolol Succinate 25 MG Tab.ER PO SCH (08:13)
[2017-09-14] MEDS: Dorzolamide 2% Ophth Soln 10 ML Bottle EYELF SCH (08:15)
[2017-09-14 08:16] VITALS: BP 137/70
[2017-09-14] MEDS: Polyethylene Glycol 3350 Powder 17 GM Packet PO SCH (08:16)
[2017-09-14] MEDS: Multivitamins, Therapeutic with Minerals Tab PO SCH (08:20)
[2017-09-14] MEDS: Levofloxacin/Dextrose 5%-Water 500 MG in Premix Bag 1 BAG IV SCH (08:34)
--- NOTE | 2017-09-14 08:54 | PCM.PN ---
- General Info Date of Service: 09/14/17 Admission Dx/Problem (Free Text): Admission Diagnosis/Problem Admission Diagnosis/Problem COPD, Moderate chronic obstructive pulmonary disease Subjective Update: Patient slept well, overnight feels better and breathing better today but is not ready to go home yet. He has no new symptoms except for the cough wheezing or shortness of breath mildly anxious. He wants to go home - Review of Systems General: Reports: No Symptoms Pulmonary: Reports: Shortness of Breath, Cough Cardiovascular: Reports: Dyspnea on Exertion. Denies: Chest Pain - Patient Data Vitals - Most Recent: Last Vital Signs Temp 98.7 F 09/14/17 01:20 Pulse 70 09/14/17 08:13 Resp 24 H 09/14/17 01:20 BP 137/70 09/14/17 08:13 Pulse Ox 94 L 09/14/17 01:20 Weight - Most Recent: 105.642 kg I&O - Last 24 Hours: Intake & Output 09/13/17 09/14/17 09/14/17 22:59 06:59 14:59 Intake Total 100 Output Total 525 Balance -525 100 Lab Results Last 24 Hours: Laboratory Results - last 24 hr 09/14/17 Range/Units 06:15 NT-Pro-B Natriuret Pep 1083 H* (<=450) pg/mL Med Orders - Current: Current Medications Acetaminophen (Tylenol) 650 mg PO BEDTIME [facility] Last Admin: 09/13/17 20:24 Dose: 650 mg Acetaminophen (Tylenol) 650 mg PO Q4H PRN PRN Reason: Pain/Fever Albuterol/Ipratropium (Duoneb 3.0-0.5 Mg/3 Ml) 3 ml NEB QIDRT [facility] Last Admin: 09/14/17 07:30 Dose: 3 ml Albuterol/Ipratropium (Duoneb 3.0-0.5 Mg/3 Ml) 3 ml NEB Q4H PRN PRN Reason: BREATHING Amlodipine Besylate (Norvasc) 5 mg PO DAILY [facility] Last Admin: 09/14/17 08:12 Dose: 5 mg Ascorbic Acid (Vitamin C) 500 mg PO DAILY [facility] Last Admin: 09/14/17 08:11 Dose: 500 mg Benzonatate (Tessalon Perles) 100 mg PO TID PRN PRN Reason: Cough Benzonatate (Tessalon Perles) 100 mg PO TID@0800,1200,2100 [facility] Last Admin: 09/14/17 08:11 Dose: 100 mg Budesonide (Pulmicort) 0.5 mg INH BID [facility] Last Admin: 09/13/17 20:23 Dose: 0.5 mg Buspirone HCl (Buspar) 7.5 mg PO BID [facility] Last Admin: 09/14/17 08:12 Dose: 7.5 mg Clonazepam (Klonopin) 0.25 mg PO TID PRN PRN Reason: Anxiety Last Admin: 09/14/17 08:31 Dose: 0.25 mg Diclofenac Sodium (Voltaren 1% Gel) gm TOP TID [facility] Docusate Sodium (Colace) 100 mg PO BID PRN PRN Reason: Constipation Dorzolamide HCl (Trusopt 2% Ophth Soln) 0 ml EYELF BID [facility] Last Admin: 09/14/17 08:15 Dose: 1 drop Dutasteride (Avodart) 0.5 mg PO BEDTIME [facility] Last Admin: 09/13/17 20:25 Dose: 0.5 mg Furosemide (Lasix) 80 mg PO DAILY [facility] Last Admin: 09/14/17 08:13 Dose: 80 mg Levofloxacin/Dextrose 500 mg/ (Premix) 100 mls @ 100 mls/hr IV Q24H [facility] Last Admin: 09/14/17 08:34 Dose: 100 mls/hr Latanoprost (Xalatan 0.005% Ophth Soln) 0 ml EYEBOTH BEDTIME [facility] Last Admin: 09/13/17 20:24 Dose: 1 drop Losartan Potassium (Cozaar) 100 mg PO DAILY [facility] Last Admin: 09/14/17 08:11 Dose: 100 mg Methylprednisolone Sodium Succinate (Solu-Medrol) 125 mg IVPUSH Q8H [facility] Last Admin: 09/14/17 08:15 Dose: 125 mg Metoprolol Succinate (Toprol Xl) 25 mg PO DAILY [facility] Last Admin: 09/14/17 08:13 Dose: 25 mg Mirtazapine (Remeron) 15 mg PO BEDTIME [facility] Last Admin: 09/13/17 20:23 Dose: 15 mg Multivitamins/Minerals (Vitamins And Minerals) 1 tab PO DAILY [facility] Last Admin: 09/14/17 08:20 Dose: 1 tab Ondansetron HCl (Zofran) 4 mg IV Q4H PRN PRN Reason: Nausea/Vomiting Polyethylene Glycol (Miralax) 17 gm PO DAILY [facility] Last Admin: 09/14/17 08:16 Dose: 17 gm Potassium Chloride (Klor-Con 10) 10 meq PO DAILY [facility] Last Admin: 09/14/17 08:12 Dose: 10 meq Pseudoephedrine HCl (Sudafed 12 Hour) 120 mg PO BID PRN PRN Reason: Cough Senna/Docusate Sodium (Senna Plus) 2 tab PO BID [facility] Last Admin: 09/14/17 08:13 Dose: 2 tab Simvastatin (Zocor) 20 mg PO BEDTIME [facility] Last Admin: 09/13/17 20:25 Dose: 20 mg Sodium Chloride (Saline Flush) 10 ml FLUSH ASDIRECTED PRN PRN Reason: Keep Vein Open Last Admin: 09/14/17 08:15 Dose: 10 ml Discontinued Medications Albuterol/Ipratropium (Duoneb 3.0-0.5 Mg/3 Ml) 3 ml NEB ONETIME ONE Stop: 09/11/17 19:55 Last Admin: 09/11/17 20:06 Dose: 3 ml Benzonatate (Tessalon Perles) 100 mg PO TID [facility] Last Admin: 09/12/17 14:22 Dose: Not Given Methylprednisolone Sodium Succinate (Solu-Medrol) 125 mg IVPUSH ONETIME ONE Stop: 09/11/17 19:55 Last Admin: 09/11/17 20:06 Dose: 125 mg - Exam Quality Assessment: Supplemental Oxygen General: Mild Distress HEENT: Pupils Equal, Pupils Reactive, EOMI, Mucous Membr. Moist/[place] Neck: Supple Lungs: Clear to Auscultation, Wheezing Cardiovascular: Regular Rate, Regular Rhythm - Problem List & Annotations (1) Anxiety SNOMED Code(s): 89346079 Code(s): F41.9 - ANXIETY DISORDER, UNSPECIFIED Status: Acute Current Visit: Yes (2) COPD (chronic obstructive pulmonary disease) SNOMED Code(s): 69813840 Code(s): J44.9 - CHRONIC OBSTRUCTIVE PULMONARY DISEASE, UNSPECIFIED Status : Acute Current Visit: Yes Qualifiers: COPD type: emphysema Emphysema type: centrilobular Qualified Code(s): J43.2 - Centrilobular emphysema (3) BPH (benign prostatic hyperplasia) SNOMED Code(s): 151461380 Code(s): N40.0 - BENIGN PROSTATIC HYPERPLASIA WITHOUT LOWER URINRY TRACT SYMP Status: Acute Current Visit: No Qualifiers: Lower urinary tract symptom presence: symptoms present (4) Chest pain SNOMED Code(s): 35244938 Code(s): R07.9 - CHEST PAIN, UNSPECIFIED Status: Acute Current Visit: No Qualifiers: Chest pain type: precordial pain Qualified Code(s): R07.2 - Precordial pain (5) Hypertension SNOMED Code(s): 76297089 Code(s): I10 - ESSENTIAL (PRIMARY) HYPERTENSION Status: Acute Current Visit: No Qualifiers: Hypertension type: essential hypertension Qualified Code(s): I10 - Essential (primary) hypertension Annotation/Comment:: continue home medications. continues to complain of chronic cough that drives him nuts. he is on an ACEI and has been for some time. not willing to trial a switch. agrees to discuss with his PCP outpatient. (6) Hx of congestive heart failure SNOMED Code(s): 383444228 Code(s): Z86.79 - PERSONAL HISTORY OF OTHER DISEASES OF THE CIRCULATORY SYSTEM Status: Chronic Priority: High Current Visit: No - Problem List Review Problem List Initiated/Reviewed/Updated: Yes - My Orders Last 24 Hours: My Active Orders 09/15/17 05:11 PRO B-TYPE NATRIUR PEPT,BNPPRO [CHEM] DAILY - Assessment Assessment:: Will discharge the patient to long-term today. - Plan Plan:: Continue with current treatment, encourage ambulation, incentive spirometry, with a few discharge tomorrow.
[2017-09-14] MEDS: Budesonide 0.5 MG/2 ML Neb Susp INH SCH (09:10)
--- NOTE | 2017-09-14 10:39 | CR ---
INDICATION: Short of breath. CHEST: Portable AP upright view of the chest, 09/11/2017, compared with 2016 and 10/23/2016, revealed findings remaining compatible with COPD, CHF, interstitial lung edema, ASHD with cardiomegaly. There is blunting of the right costophrenic angle with density in that area, suggesting the possibility of minimal pneumonia and pleuritis additionally. Overlying EKG leads are noted. MTDD
--- NOTE | 2017-09-15 12:32 | DISCH ---
DISCHARGE DATE: 09/14/2017 REASON FOR ADMISSION: COPD exacerbation, anxiety disorder, hypertension, CHF. DISCHARGE DIAGNOSES: 1. Chronic obstructive pulmonary disease exacerbation. 2. Anxiety disorder. 3. Hypertension. 4. Congestive heart failure. CONSULTATIONS: None. BRIEF HISTORY AND HOSPITAL COURSE: This is an 82-year-old male from the [place] who came in with shortness of breath, cough, and wheezing, and was admitted for COPD exacerbation. Chest x-ray was unremarkable. He was treated with IV Solu-Medrol, SVNs, and Levaquin. His symptoms improved to the point that he was ready for discharge. DISCHARGE MEDICATIONS: 1. Levaquin 500 mg daily x5 days. 2. Prednisone 20 mg b.i.d. x5 days. 3. Acetaminophen, albuterol, and ipratropium nebulized as needed. 4. Amlodipine 5 mg a day. 5. Tessalon Perles 100 mg twice a day. 6. Pulmicort 0.5 mg b.i.d. 7. BuSpar 7.5 mg b.i.d. 8. Diclofenac 4 gm t.i.d. 9. Docusate sodium 100 mg b.i.d. p.r.n. 2 tablets p.o. b.i.d. 10.Avodart 0.5 mg at bedtime. 11.Lasix 80 mg daily. 12.Losartan 100 mg a day. 13.Metoprolol 25 mg a day. 14.Remeron 15 mg at bedtime. 15.Multivitamin 1 a day. 16.Zofran p.r.n. 17.Pseudoephedrine 120 mg b.i.d. p.r.n. 18.Potassium chloride 10 mEq p.o. daily. FOLLOWUP: Will see Dr. Bennett within a week after discharge at the detention. Please note that I spent more than 35 minutes in the discharge of this patient. /[id number] MEERA/MANI
== END 2017-09-14 10:45 | DRG 192 ==
LOC: FB.ED 19:26 → FB.MS 20:15
PROVIDERS: ADMIT Family Medicine; ATTEND Family Medicine
DX: J44.1 Chronic obstructive pulmonary disease with (acute) exacerbation (principal); I11.0 Hypertensive heart disease with heart failure; I50.9 Heart failure, unspecified; Z99.81 Dependence on supplemental oxygen; Z87.891 Personal history of nicotine dependence; Z66 Do not resuscitate; F41.9 Anxiety disorder, unspecified; R07.9 Chest pain, unspecified; R06.02 Shortness of breath; H40.9 Unspecified glaucoma; E78.00 Pure hypercholesterolemia, unspecified; N40.0 Benign prostatic hyperplasia without lower urinary tract symptoms; M19.90 Unspecified osteoarthritis, unspecified site; Z85.828 Personal history of other malignant neoplasm of skin; Z96.649 Presence of unspecified artificial hip joint; Z88.6 Allergy status to analgesic agent
CPT/HCPCS: 36415; 71045; 94640; 96374; 99285; J2930; J7620; 80048; 81001; 83880; 85025; 93005; A9270; A9270-GY; J1956; J7050

== ENCOUNTER 2017-09-16 10:06 | Inpatient (IN) | payer MEDICARE, MEDICAID ==
[2017-09-16] MEDS ORDERED: Albuterol/Ipratropium 3.0-0.5 MG/3 ML Neb Soln NEB ONE (10:12)
[2017-09-16] MEDS ORDERED: methylPREDNISolone Sodium Succinate 125 MG/2 ML SDV IVPUSH ONE (10:12)
--- NOTE | 2017-09-16 10:13 | EDM.PDOC ---
ED HPI GENERAL MEDICAL PROBLEM - General Stated Complaint: SOB Time Seen by Provider: 09/16/17 10:10 Source of Information: Reports: Patient History Limitations: Reports: Respiratory Distress - History of Present Illness INITIAL COMMENTS - FREE TEXT/NARRATIVE: 82 y.o.w.m with H/O endstage copd, come to the the ed due to worsening of SOB. Pt was admitted a few days ago for same a few days ago and d/c'd yesterday. No N /V/D no dizziness no other acute medical issues. Pt is a poor historian, no family is present. BP 153/73 pulse 78 RR 22 Temp 35.6 Pulse ox 85% on RA Onset Date: 09/15/17 Onset Time: 07:00 Duration: Intermittent (chronic intermittant) Location: Reports: Chest Quality: Reports: Same as Previous Episode Severity: Moderate Improves with: Reports: Medication Worsens with: Reports: Movement Context: Reports: Other (COPD) Associated Symptoms: Reports: No Other Symptoms Chest Pain Score (Numeric/FACES): 3 - Related Data Allergies Allergy/AdvReac Type Severity Reaction Status Date / Time aspirin Allergy Cannot Verified 09/16/17 11:34 Remember Home Meds: Home Meds Albuterol/Ipratropium [DuoNeb 3.0-0.5 MG/3 ML] 1 each INH QID 09/26/13 [History] Brinzolamide [Azopt 1% Ophth Susp] 1 drop EYELF BID 09/26/13 [History] Dutasteride [Avodart] 0.5 mg PO BEDTIME 09/26/13 [History] Metoprolol Succinate 25 mg PO DAILY 09/26/13 [History] Mirtazapine [Remeron] 15 mg PO BEDTIME 09/26/13 [History] Simvastatin 20 mg PO BEDTIME 09/26/13 [History] Travoprost [Travatan Z 0.004% Ophth Soln] 1 drop EYEBOTH BEDTIME 09/26/13 [ History] Potassium Chloride [Klor-Con 10] 10 meq PO DAILY #30 tab.er 09/30/13 [Rx] Furosemide [Lasix] 80 mg PO DAILY 04/10/15 [History] Losartan Potassium [Cozaar] 100 mg PO DAILY 04/10/15 [History] Acetaminophen [Tylenol] 650 mg PO BEDTIME 10/23/16 [History] Ascorbate Calcium [Vitamin C] 500 mg PO DAILY 10/23/16 [History] Benzonatate 100 mg PO TID 10/23/16 [History] amLODIPine [Norvasc] 5 mg PO DAILY 10/23/16 [History] busPIRone [Buspar] 7.5 mg PO BID 10/23/16 [History] Acetaminophen [Tylenol] 650 mg PO Q4H PRN 10/24/16 [History] Multivitamin with Minerals [Multivitamins with Minerals] 1 tab PO DAILY [History] Albuterol/Ipratropium [Combivent] 2 puff INH BID PRN 06/22/17 [History] Benzonatate [Tessalon Perles] 100 mg PO TID PRN 06/22/17 [History] Docusate Sodium/Sennosides [Senna Plus] 2 tab PO BID 06/22/17 [History] Pseudoephedrine [Sudafed 12 Hour] 120 mg PO BID PRN 06/22/17 [History] Diclofenac Sodium [Voltaren 1% Gel] 1 applic TOP TID 06/23/17 [History] Budesonide [Pulmicort] 0.5 mg INH BID 09/11/17 [History] Melatonin 3 mg PO BEDTIME 09/11/17 [History] Polyethylene Glycol 3350 [MiraLAX] 17 gm PO DAILY 09/11/17 [History] Dextromethorphan/guaiFENesin [Robitussin DM] 5 ml PO Q4H PRN 09/12/17 [History] Levofloxacin [Levaquin] 500 mg PO DAILY #5 tab 09/14/17 [Rx] predniSONE 20 mg PO BID #10 tab 09/14/17 [Rx] Past Medical History HEENT History: Reports: Cataract, Glaucoma Other HEENT History: both eyes done. pt wears glassess. Cardiovascular History: Reports: High Cholesterol, Hypertension Respiratory History: Reports: COPD, Pneumothorax Other Respiratory History: COLLASPSED LUNG YEARS AGO. Gastrointestinal History: Reports: Chronic Constipation Genitourinary History: Reports: BPH, Prostate Disorder Musculoskeletal History: Reports: Arthritis, Osteoarthritis Other Musculoskeletal History: GENERALIZED ARTHRITIS Endocrine/Metabolic History: Reports: None Oncologic (Cancer) History: Reports: Other (See Below) Other Oncologic History: skin CA Dermatologic History: Reports: Other (See Below) Other Dermatologic History: Hx of skin ulcers to coccyx recently - Past Surgical History HEENT Surgical History: Reports: Cataract Surgery Respiratory Surgical History: Reports: Other (See Below) Musculoskeletal Surgical History: Reports: Hip Replacement Social & Family History - Family History Family Medical History: Noncontributory - Tobacco Use Smoking Status *Q: Former Smoker Years of Tobacco use: 20 Packs/Tins Daily: 0.5 Used Tobacco, but Quit: Yes Month Tobacco Last Used: unknown Second Hand Smoke Exposure: No - Caffeine Use Caffeine Use: Reports: Coffee Other Caffeine Use: 3 cups a day - Alcohol Use Days Per Week of Alcohol Use: 0 Number of Drinks Per Day: 1 Total Drinks Per Week: 0 - Recreational Drug Use Recreational Drug Use: No - Living Situation & Occupation Living situation: Reports: Occupation: Retired ED ROS GENERAL - Review of Systems Review Of Systems: Unable To Obtain ED EXAM, GENERAL - Physical Exam Exam: See Below Exam Limited By: Respiratory Distress General Appearance: Alert, WD/WN, Moderate Distress, Obese Eye Exam: Bilateral Eye: Normal Inspection Ears: Normal External Exam Ear Exam: Bilateral Ear: Auricle Normal Nose: Normal Inspection, Normal Mucosa, No Blood Throat/Mouth: Normal Inspection, Normal Lips, No Airway Compromise Head: Atraumatic, Normocephalic Neck: Normal Inspection, Supple, Non-Tender, Full Range of Motion Respiratory/Chest: Respiratory Distress, Decreased Breath Sounds (poor airmobvement), Wheezing, Prolonged Expiration Cardiovascular: Normal Peripheral Pulses, Regular Rate, Rhythm, No Edema Peripheral Pulses: 1+: Radial (R) GI/Abdominal: Normal Bowel Sounds, Soft, Non-Tender, No Organomegaly, No Distention (Male) Exam: Deferred Rectal (Males) Exam: Deferred Back Exam: Normal Inspection, Full Range of Motion Extremities: Normal Inspection, Normal Range of Motion, Non-Tender, No Pedal Edema Neurological: Alert, Oriented, CN II-XII Intact Psychiatric: Normal Affect, Normal Mood Skin Exam: Warm, Dry, Intact, Normal Color, No Rash Lymphatic: No Adenopathy Course - Vital Signs Text/Narrative:: 82 y.o.w.m with H/O endstage copd, come to the the ed due to worsening of SOB. Pt was admitted a few days ago for same a few days ago and d/c'd yesterday. No N /V/D no dizziness no other acute medical issues. Pt is a poor historian, no family is present. BP 153/73 pulse 78 RR 22 Temp 35.6 Pulse ox 85% on RA PE WNWD W M in resp distress, poor airmovement Imaging: CAPD, r pleural effusion Labs: WBC 12.5 Na 147 K 3.8 CO2 51 GFR 53 Impression: CAPD exacerbation , r pleural effusion Tx: Griselda Bel Reexam: Improved 11.[address] Jackson: Accepted the pt for inpatient admit Plan: Admit to inpatient Last Recorded V/S: Last Vital Signs Temp 36.8 C 09/16/17 15:45 Pulse 74 09/16/17 15:45 Resp 22 H 09/16/17 15:45 BP 156/73 H 09/16/17 15:45 Pulse Ox 91 L 09/16/17 15:45 - Orders/Labs/Meds Orders: Active Orders 24 hr Category Date Time Status Patient Status [ADT] Routine ADT 09/16/17 11:34 Active Oxygen Therapy [RC] PRN Care 09/16/17 11:34 Active RT Aerosol Therapy [RC] ASDIRECTED Care 09/16/17 11:44 Active Vital Signs [RC] 08,12,16,20,00,04 Care 09/16/17 11:34 Active Regular Diet [DIET] Diet 09/16/17 Breakfast Ordered Albuterol [Proventil Neb Soln] Med 09/16/17 11:45 Active 2.5 mg NEB Q2H Docusate Sodium [Colace] Med 09/16/17 11:34 Active 100 mg PO BID PRN Ondansetron [Zofran] Med 09/16/17 11:34 Active 4 mg IV Q4H PRN Sodium Chloride 0.9% [Normal Saline] 1,000 ml Med 09/16/17 11:45 Active IV ASDIRECTED Sodium Chloride 0.9% [Saline Flush] Med 09/16/17 10:39 Active 10 ml FLUSH ASDIRECTED PRN Saline Lock Insert [OM.PC] Routine Oth 09/16/17 10:39 Ordered Resuscitation Status Routine Resus Stat 09/16/17 11:34 Ordered Medication Orders Albuterol (Proventil Neb Soln) 2.5 mg NEB Q2H [facility] Last Admin: 09/16/17 15:31 Dose: 2.5 mg Admin: 09/16/17 13:33 Dose: 2.5 mg Admin: 09/16/17 12:08 Dose: 2.5 mg Docusate Sodium (Colace) 100 mg PO BID PRN PRN Reason: Constipation Sodium Chloride (Normal Saline) 1,000 mls @ 125 mls/hr IV ASDIRECTED [facility] Last Admin: 09/16/17 13:30 Dose: 125 mls/hr Ondansetron HCl (Zofran) 4 mg IV Q4H PRN PRN Reason: Nausea/Vomiting Sodium Chloride (Saline Flush) 10 ml FLUSH ASDIRECTED PRN PRN Reason: Keep Vein Open Last Admin: 09/16/17 10:39 Dose: 10 ml Labs: Laboratory Tests 09/16/17 09/16/17 09/16/17 Range/Units 12:00 12:00 12:00 WBC 12.8 H (4.5-12.0) X10-3/uL RBC 4.86 (4.30-5.75) x10(6)uL Hgb 13.2 (11.5-15.5) g/dL Hct 42.5 (30.0-51.3) % MCV 87.4 (80-96) fL MCH 27.2 L (27.7-33.6) pg MCHC 31.1 L (32.2-35.4) g/dL RDW 15.6 H (11.5-15.5) % Plt Count 244 (125-369) X10(3)uL MPV 8.1 (7.4-10.4) fL Add Manual Diff Yes Neutrophils % (Manual) 88 H (46-82) % Lymphocytes % (Manual) 8 L (13-37) % Monocytes % (Manual) 4 (4-12) % Sodium 148 H (135-145) mmol/L Potassium 4.2 (3.5-5.3) mmol/L Chloride 102 (100-110) mmol/L Carbon Dioxide 51 H* (21-32) mmol/L BUN 58 H D (7-18) mg/dL Creatinine 1.3 (0.70-1.30) mg/dL Est Cr Clr Drug Dosing TNP Estimated GFR (MDRD) 53 L (>60) BUN/Creatinine Ratio 44.6 H (9-20) Glucose 151 H (80-116) mg/dL Calcium 9.4 (8.6-10.2) mg/dL Troponin I 0.024 (<0.017-0.056) ng/mL Meds: Medications Generic Name Dose Route Start Last Admin Trade Name Freq PRN Reason Stop Dose Admin Albuterol 2.5 mg 09/16/17 11:45 09/16/17 15:31 Proventil Neb Soln NEB 2.5 mg Q2H [facility]ET Administration Docusate Sodium 100 mg 09/16/17 11:34 Colace PO BID PRN Constipation Sodium Chloride 1,000 mls @ 125 mls/hr 09/16/17 11:45 09/16/17 13:30 Normal Saline IV 125 mls/hr ASDIRECTED [facility]ARG[facility] Administration Ondansetron HCl 4 mg 09/16/17 11:34 Zofran IV Q4H PRN Nausea/Vomiting Sodium Chloride 10 ml 09/16/17 10:39 09/16/17 10:39 Saline Flush FLUSH 10 ml ASDIRECTED PRN Administration Keep Vein Open Discontinued Medications Generic Name Dose Route Start Last Admin Trade Name Freq PRN Reason Stop Dose Admin Albuterol Confirm 09/16/17 12:07 09/16/17 13:11 Proventil Neb Soln Administered 09/16/17 12:08 Not Given Dose 2.5 mg .ROUTE .STK-MED ONE Albuterol/Ipratropium 3 ml 09/16/17 10:12 09/16/17 10:27 Duoneb 3.0-0.5 Mg/3 Ml NEB 09/16/17 10:13 3 ml ONETIME ONE Administration Methylprednisolone Sodium Succinate 125 mg 09/16/17 10:12 09/16/17 10:38 Solu-Medrol IVPUSH 09/16/17 10:13 125 mg ONETIME ONE Administration Departure - Departure Time of Disposition: 11:32 Disposition: Admitted As Inpatient 66 Condition: Fair Clinical Impression: COPD exacerbation, Pleural effusion - Discharge Information - My Orders Last 24 Hours: My Active Orders 09/16/17 10:39 Sodium Chloride 0.9% [Saline Flush] 10 ml FLUSH ASDIRECTED PRN Saline Lock Insert [OM.PC] Routine 09/16/17 11:34 Patient Status [ADT] Routine Oxygen Therapy [RC] PRN Vital Signs [RC] 08,12,16,20,00,04 Docusate Sodium [Colace] 100 mg PO BID PRN Ondansetron [Zofran] 4 mg IV Q4H PRN Resuscitation Status Routine 09/16/17 11:44 RT Aerosol Therapy [RC] ASDIRECTED 09/16/17 11:45 Albuterol [Proventil Neb Soln] 2.5 mg NEB Q2H Sodium Chloride 0.9% [Normal Saline] 1,000 ml IV ASDIRECTED 09/16/17 Breakfast Regular Diet [DIET] - Assessment/Plan Last 24 Hours: My Active Orders 09/16/17 10:39 Sodium Chloride 0.9% [Saline Flush] 10 ml FLUSH ASDIRECTED PRN Saline Lock Insert [OM.PC] Routine 09/16/17 11:34 Patient Status [ADT] Routine Oxygen Therapy [RC] PRN Vital Signs [RC] 08,12,16,20,00,04 Docusate Sodium [Colace] 100 mg PO BID PRN Ondansetron [Zofran] 4 mg IV Q4H PRN Resuscitation Status Routine 09/16/17 11:44 RT Aerosol Therapy [RC] ASDIRECTED 09/16/17 11:45 Albuterol [Proventil Neb Soln] 2.5 mg NEB Q2H Sodium Chloride 0.9% [Normal Saline] 1,000 ml IV ASDIRECTED 09/16/17 Breakfast Regular Diet [DIET]
[2017-09-16] MEDS: Sodium Chloride 0.9% 10 ML Syringe FLUSH PRN ×2 (10:39→22:10)
[2017-09-16] MEDS ORDERED: Ondansetron 4 MG/2 ML SDV IV PRN (11:34)
[2017-09-16] MEDS ORDERED: Docusate Sodium 100 MG Cap PO PRN (11:34)
[2017-09-16] MEDS ORDERED: Sodium Chloride 0.9% 1,000 ML IV SCH (11:45)
[2017-09-16] MEDS ORDERED: Albuterol 0.083% 2.5 MG/3 ML Neb Soln ONE (12:07)
[2017-09-16] MEDS: Albuterol 0.083% 2.5 MG/3 ML Neb Soln NEB SCH ×6 (12:08→21:45)
--- NOTE | 2017-09-16 12:33 | CR ---
INDICATION: Short of breath. CHEST: AP upright view of the chest 09/16/2017 was compared with 09/11/2017 and 06/22/2017, revealing poor inspiration. There is an increase in pleuroparenchymal change at the right lung base, compatible with progressively more severe pneumonia and pleuritis in that area. Interstitial markings appear heavy, with prominence of upper lung field pulmonary vasculature additionally suggesting CHF. The heart is enlarged. The aorta is tortuous and calcified. IMPRESSION: CHF with interstitial lung edema and increasing pleuroparenchymal change at the right lung base, likely due to pneumonia and pleuritis - correlate clinically. MTDD
--- NOTE | 2017-09-16 17:26 | PCM.HP ---
H&P History of Present Illness - General Date of Service: 09/16/17 Source of Information: Patient History Limitations: Reports: No Limitations - History of Present Illness Initial Comments - Free Text/Narative: Patient was admitted with acute shortness of breath, weakness and respiratory distress. He was just recently discharged home after COPD exacerbation. He complains of no fever or chest pain but has a mild productive cough. He has Severe COPD,and anxiety that is stable. This morning, his home health nurse was unable to work with him because of severe weakness and desaturations despite 3 L of oxygenation that he usually uses at home. Marshall lives in an independent living facility [facility]. Chest Pain Score (Numeric/FACES): 3 - Related Data Allergies/Adverse Reactions: Allergies Allergy/AdvReac Type Severity Reaction Status Date / Time aspirin Allergy Cannot Verified 09/16/17 11:34 Remember Home Medications: Home Meds Albuterol/Ipratropium [DuoNeb 3.0-0.5 MG/3 ML] 1 each INH QID 09/26/13 [History] Brinzolamide [Azopt 1% Ophth Susp] 1 drop EYELF BID 09/26/13 [History] Dutasteride [Avodart] 0.5 mg PO BEDTIME 09/26/13 [History] Metoprolol Succinate 25 mg PO DAILY 09/26/13 [History] Mirtazapine [Remeron] 15 mg PO BEDTIME 09/26/13 [History] Simvastatin 20 mg PO BEDTIME 09/26/13 [History] Travoprost [Travatan Z 0.004% Ophth Soln] 1 drop EYEBOTH BEDTIME 09/26/13 [ History] Potassium Chloride [Klor-Con 10] 10 meq PO DAILY #30 tab.er 09/30/13 [Rx] Furosemide [Lasix] 80 mg PO DAILY 04/10/15 [History] Losartan Potassium [Cozaar] 100 mg PO DAILY 04/10/15 [History] Acetaminophen [Tylenol] 650 mg PO BEDTIME 10/23/16 [History] Ascorbate Calcium [Vitamin C] 500 mg PO DAILY 10/23/16 [History] Benzonatate 100 mg PO TID 10/23/16 [History] amLODIPine [Norvasc] 5 mg PO DAILY 10/23/16 [History] busPIRone [Buspar] 7.5 mg PO BID 10/23/16 [History] Acetaminophen [Tylenol] 650 mg PO Q4H PRN 10/24/16 [History] Multivitamin with Minerals [Multivitamins with Minerals] 1 tab PO DAILY [History] Albuterol/Ipratropium [Combivent] 2 puff INH BID PRN 06/22/17 [History] Benzonatate [Tessalon Perles] 100 mg PO TID PRN 06/22/17 [History] Docusate Sodium/Sennosides [Senna Plus] 2 tab PO BID 06/22/17 [History] Pseudoephedrine [Sudafed 12 Hour] 120 mg PO BID PRN 06/22/17 [History] Diclofenac Sodium [Voltaren 1% Gel] 1 applic TOP TID 06/23/17 [History] Budesonide [Pulmicort] 0.5 mg INH BID 09/11/17 [History] Melatonin 3 mg PO BEDTIME 09/11/17 [History] Polyethylene Glycol 3350 [MiraLAX] 17 gm PO DAILY 09/11/17 [History] Dextromethorphan/guaiFENesin [Robitussin DM] 5 ml PO Q4H PRN 09/12/17 [History] Levofloxacin [Levaquin] 500 mg PO DAILY #5 tab 09/14/17 [Rx] predniSONE 20 mg PO BID #10 tab 09/14/17 [Rx] Past Medical History HEENT History: Reports: Cataract, Glaucoma Other HEENT History: both eyes done. pt wears glassess. Cardiovascular History: Reports: High Cholesterol, Hypertension Respiratory History: Reports: COPD, Pneumothorax Other Respiratory History: COLLASPSED LUNG YEARS AGO. Gastrointestinal History: Reports: Chronic Constipation Genitourinary History: Reports: BPH, Prostate Disorder Musculoskeletal History: Reports: Arthritis, Osteoarthritis Other Musculoskeletal History: GENERALIZED ARTHRITIS Psychiatric History: Reports: Anxiety Endocrine/Metabolic History: Reports: None Oncologic (Cancer) History: Reports: Other (See Below) Other Oncologic History: skin CA Dermatologic History: Reports: Other (See Below) Other Dermatologic History: Hx of skin ulcers to coccyx recently - Infectious Disease History Infectious Disease History: Reports: Chicken Pox - Past Surgical History HEENT Surgical History: Reports: Cataract Surgery Respiratory Surgical History: Reports: Other (See Below) Musculoskeletal Surgical History: Reports: Hip Replacement Social & Family History - Family History Family Medical History: Noncontributory - Tobacco Use Smoking Status *Q: Former Smoker Years of Tobacco use: 20 Packs/Tins Daily: 0.5 Used Tobacco, but Quit: Yes Month Tobacco Last Used: unknown Second Hand Smoke Exposure: No - Caffeine Use Caffeine Use: Reports: Coffee Other Caffeine Use: 3 cups a day - Alcohol Use Days Per Week of Alcohol Use: 0 Number of Drinks Per Day: 1 Total Drinks Per Week: 0 - Recreational Drug Use Recreational Drug Use: No - Living Situation & Occupation Living situation: Reports: Occupation: Retired H&P Review of Systems - Review of Systems: Review Of Systems: ROS reveals no pertinent complaints other than HPI. Exam - Exam Exam: See Below - Vital Signs Vital Signs: Last Vital Signs Temp 98.2 F 09/16/17 15:45 Pulse 74 09/16/17 15:45 Resp 22 H 09/16/17 15:45 BP 156/73 H 09/16/17 15:45 Pulse Ox 91 L 09/16/17 15:45 Weight: 106.912 kg - Exam Quality Assessment: Supplemental Oxygen General: Mild Distress HEENT: PERRLA, Hearing Intact, Mucosa Moist & [place], Nares Patent, Normal Nasal Septum, Posterior Pharynx Clear, Conjunctiva Clear, EOMI, EACs Clear, TMs Clear Neck: Supple, Trachea Midline, 2 Lungs: Decreased Breath Sounds, Rales Cardiovascular: Regular Rate, Regular Rhythm GI/Abdominal Exam: Normal Bowel Sounds, Soft, Non-Tender, No Organomegaly, No Distention, No Abnormal Bruit, No Mass, Pelvis Stable (Male) Exam: Deferred Rectal (Males) Exam: Deferred Back Exam: Normal Inspection, Full Range of Motion, NT Extremities: Normal Inspection, Normal Range of Motion, Non-Tender, No Pedal Edema, Normal Capillary Refill Skin: Warm, Dry, Intact Neurological: Cranial Nerves Intact, Reflexes Equal Bilateral Neuro Extensive - Mental Status: Alert, Oriented x3, Normal Mood/Affect, Normal Cognition Neuro Extensive - Motor, Sensory, Reflexes: CN II-XII Intact, Normal Gait, Normal Reflexes Psychiatric: Alert, Normal Affect, Normal Mood - Patient Data Result Diagrams: 09/16/17 12:00 09/16/17 12:00 *Q Meaningful Use (ADM) - VTE *Q VTE Criteria *Q: - Stroke *Q Stroke Criteria *Q: - AMI *Q AMI Criteria *Q: - Problem List (1) COPD exacerbation SNOMED Code(s): 539780220 ICD Code: J44.1 - CHRONIC OBSTRUCTIVE PULMONARY DISEASE W (ACUTE) EXACERBATION Status: Acute Current Visit: Yes (2) Palliative care patient SNOMED Code(s): 852892097 ICD Code: Z51.5 - ENCOUNTER FOR PALLIATIVE CARE Status: Acute Current Visit: Yes (3) Anxiety SNOMED Code(s): 44166256 ICD Code: F41.9 - ANXIETY DISORDER, UNSPECIFIED Status: Acute Current Visit: No (4) Hypertension SNOMED Code(s): 09104299 ICD Code: I10 - ESSENTIAL (PRIMARY) HYPERTENSION Status: Acute Current Visit: No Problem Details: continue home medications. continues to complain of chronic cough that drives him nuts. he is on an ACEI and has been for some time. not willing to trial a switch. agrees to discuss with his PCP outpatient. Qualifiers: Hypertension type: essential hypertension Qualified Code(s): I10 - Essential (primary) hypertension (5) Supplemental oxygen dependent SNOMED Code(s): 587430171860 ICD Code: Z99.81 - DEPENDENCE ON SUPPLEMENTAL OXYGEN Status: Acute Current Visit: No (6) Pneumonia, bacterial SNOMED Code(s): 70152045 ICD Code: J15.9 - UNSPECIFIED BACTERIAL PNEUMONIA Status: Acute Priority : High Current Visit: No (7) ARANGO (dyspnea on exertion) SNOMED Code(s): 48067306 ICD Code: R06.09 - OTHER FORMS OF DYSPNEA Status: Acute Current Visit: Yes Problem List Initiated/Reviewed/Updated: Yes Orders Last 24hrs: Active Orders 24 hr Category Date Time Status methylPREDNISolone Sod Succ [Solu-MEDROL] Med 09/16/17 17:30 Ordered 125 mg IVPUSH Q8H Medication Orders Albuterol (Proventil Neb Soln) 2.5 mg NEB Q2H MARGARET Last Admin: 09/16/17 15:31 Dose: 2.5 mg Admin: 09/16/17 13:33 Dose: 2.5 mg Admin: 09/16/17 12:08 Dose: 2.5 mg Docusate Sodium (Colace) 100 mg PO BID PRN PRN Reason: Constipation Sodium Chloride (Normal Saline) 1,000 mls @ 125 mls/hr IV ASDIRECTED MARGARET Last Admin: 09/16/17 13:30 Dose: 125 mls/hr Methylprednisolone Sodium Succinate (Solu-Medrol) 125 mg IVPUSH Q8H MARGARET Ondansetron HCl (Zofran) 4 mg IV Q4H PRN PRN Reason: Nausea/Vomiting Sodium Chloride (Saline Flush) 10 ml FLUSH ASDIRECTED PRN PRN Reason: Keep Vein Open Last Admin: 09/16/17 10:39 Dose: 10 ml Assessment/Plan Comment:: I have admitted him to acute care. I will discontinue IV fluids. His chest x- ray shows possible CHF or pneumonia. Has severe,Oxygen dependent COPD. I will give him one time Lasix dose, continue with Solu-Medrol and SVNs and broad coverage with Rocephin and azithromycin for antibiotics. I will repeat basic profile CBC in the proBNP in the morning. My understanding that a bed is ready for placement @ the group home once he is ready to be discharged.
[2017-09-16] MEDS ORDERED: Furosemide 40 MG/4 ML VIAL IVPUSH ONE (17:27)
[2017-09-16] MEDS ORDERED: cefTRIAXone 1,000 MG in Sodium Chloride 0.9% 50 ML IV SCH (18:00)
[2017-09-16] MEDS: methylPREDNISolone Sodium Succinate 125 MG/2 ML SDV IVPUSH SCH (18:06)
[2017-09-16] MEDS: Azithromycin 500 MG in Sodium Chloride 0.9% 250 ML IV SCH (18:42)
[2017-09-16] MEDS ORDERED: Pseudoephedrine 120 MG Tab.ER PO PRN (20:26)
[2017-09-16] MEDS ORDERED: Acetaminophen 325 MG Tab PO PRN (20:26)
[2017-09-16] MEDS ORDERED: Benzonatate 100 MG Cap PO PRN (20:26)
[2017-09-16] MEDS ORDERED: Diclofenac Sodium 1% Gel 100 GM Tube TOP SCH (21:00)
[2017-09-16] MEDS ORDERED: Non-Formulary Medication 1 Each (Brinzolamide [Azopt 1% Ophth Susp] 1 DROP) EYELF SCH (21:00)
[2017-09-16] MEDS ORDERED: Benzonatate 100 MG Cap PO SCH (21:00)
[2017-09-16] MEDS ORDERED: busPIRone 5 MG Tab PO SCH (21:15)
[2017-09-16] MEDS: Simvastatin 20 MG Tab PO SCH (21:41)
[2017-09-16] MEDS: Mirtazapine 15 MG Tab PO SCH (21:41)
[2017-09-16] MEDS: Melatonin 3 MG Tab PO SCH (21:41)
[2017-09-16] MEDS: Acetaminophen 325 MG Tab PO SCH (21:42)
[2017-09-16] MEDS: Budesonide 0.5 MG/2 ML Neb Susp INH SCH (21:44)
[2017-09-16] MEDS: Dutasteride 0.5 MG Cap PO SCH (21:58)
[2017-09-16] MEDS: guaiFENesin/Dextromethorphan 100-10 MG/5 ML Soln 5 ML Cup PO PRN (22:31)
[2017-09-17] MEDS: Albuterol 0.083% 2.5 MG/3 ML Neb Soln NEB SCH ×3 (02:59→07:39)
[2017-09-17] MEDS: methylPREDNISolone Sodium Succinate 125 MG/2 ML SDV IVPUSH SCH ×3 (03:00→18:04)
[2017-09-17] MEDS: Sodium Chloride 0.9% 10 ML Syringe FLUSH PRN ×4 (03:00→20:40)
[2017-09-17] MEDS: Budesonide 0.5 MG/2 ML Neb Susp INH SCH ×2 (08:32→20:04)
[2017-09-17] MEDS: Polyethylene Glycol 3350 Powder 17 GM Packet PO SCH (08:48)
[2017-09-17] MEDS: busPIRone 15 MG Tab PO SCH ×2 (08:49→20:02)
[2017-09-17] MEDS: amLODIPine 5 MG Tab PO SCH (08:49)
[2017-09-17] MEDS: Ascorbic Acid 500 MG Tab PO SCH (08:50)
[2017-09-17] MEDS: Potassium Chloride 10 MEQ Tab.ER PO SCH (08:50)
[2017-09-17] MEDS: Metoprolol Succinate 25 MG Tab.ER PO SCH (08:50)
[2017-09-17] MEDS: Losartan 100 MG Tab PO SCH (08:50)
[2017-09-17] MEDS: Multivitamins, Therapeutic with Minerals Tab PO SCH (08:50)
[2017-09-17] MEDS ORDERED: guaiFENesin/Dextromethorphan 100-10 MG/5 ML Soln 5 ML Cup PO PRN (08:54)
[2017-09-17] MEDS ORDERED: Levofloxacin 500 MG Tab PO SCH (09:00)
[2017-09-17] MEDS ORDERED: Furosemide 80 MG Tab PO SCH (09:00)
[2017-09-17] MEDS ORDERED: busPIRone 5 MG Tab PO SCH (09:00)
--- NOTE | 2017-09-17 09:06 | PCM.PN ---
- General Info Date of Service: 09/17/17 Subjective Update: Mukund was admitted yesterday for COPD exacerbation continued shortness of breath weakness. He has no new symptoms this morning but continues to be extremely short of breath on any ambulation. No fevers been reported. Functional Status: Reports: Pain Controlled - Review of Systems General: Reports: No Symptoms Pulmonary: Reports: Shortness of Breath Cardiovascular: Reports: Dyspnea on Exertion Gastrointestinal: Reports: No Symptoms Genitourinary: Reports: No Symptoms Musculoskeletal: Reports: No Symptoms - Patient Data Vitals - Most Recent: Last Vital Signs Temp 97.5 F 09/17/17 04:45 Pulse 77 09/17/17 08:50 Resp 20 09/17/17 04:45 BP 163/89 H 09/17/17 08:50 Pulse Ox 92 L 09/17/17 08:42 Weight - Most Recent: 106.912 kg I&O - Last 24 Hours: Intake & Output 09/16/17 09/17/17 09/17/17 22:59 06:59 14:59 Intake Total 1000 968 Output Total 200 Balance 800 968 Lab Results Last 24 Hours: Laboratory Results - last 24 hr 09/17/17 09/17/17 09/17/17 Range/Units 06:40 06:40 06:40 WBC 8.8 (4.5-12.0) X10-3/uL RBC 4.42 (4.30-5.75) x10(6)uL Hgb 12.0 (11.5-15.5) g/dL Hct 38.1 (30.0-51.3) % MCV 86.2 (80-96) fL MCH 27.2 L (27.7-33.6) pg MCHC 31.5 L (32.2-35.4) g/dL RDW 15.0 (11.5-15.5) % Plt Count 201 (125-369) X10(3)uL MPV 8.6 (7.4-10.4) fL Add Manual Diff Yes Neutrophils % (Manual) 92 H (46-82) % Lymphocytes % (Manual) 7 L (13-37) % Monocytes % (Manual) 1 L (4-12) % Sodium 148 H (135-145) mmol/L Potassium 4.1 (3.5-5.3) mmol/L Chloride 102 (100-110) mmol/L Carbon Dioxide 46 H* (21-32) mmol/L BUN 57 H (7-18) mg/dL Creatinine 1.3 (0.70-1.30) mg/dL Est Cr Clr Drug Dosing 43.81 mL/min Estimated GFR (MDRD) 53 L (>60) BUN/Creatinine Ratio 43.8 H (9-20) Glucose 157 H (80-116) mg/dL Calcium 9.2 (8.6-10.2) mg/dL NT-Pro-B Natriuret Pep 1448 H* (<=450) pg/mL Med Orders - Current: Current Medications Acetaminophen (Tylenol) 650 mg PO BEDTIME [facility] Last Admin: 09/16/17 21:42 Dose: 650 mg Acetaminophen (Tylenol) 650 mg PO Q4H PRN PRN Reason: Pain/Fever Albuterol (Proventil Neb Soln) 2.5 mg NEB QIDRT [facility] Amlodipine Besylate (Norvasc) 5 mg PO DAILY [facility] Last Admin: 09/17/17 08:49 Dose: 5 mg Ascorbic Acid (Vitamin C) 500 mg PO DAILY [facility] Last Admin: 09/17/17 08:50 Dose: 500 mg Benzonatate (Tessalon Perles) 100 mg PO TID PRN PRN Reason: Cough Budesonide (Pulmicort) 0.5 mg INH BID [facility] Last Admin: 09/17/17 08:32 Dose: 0.5 mg Buspirone HCl (Buspar) 7.5 mg PO BID [facility] Last Admin: 09/17/17 08:49 Dose: 7.5 mg Ceftriaxone Sodium (Rocephin) 1,000 mg IV Q24H [facility] Diclofenac Sodium (Voltaren 1% Gel) 0 gm TOP TID [facility] Last Admin: 09/16/17 22:25 Dose: Not Given Dorzolamide HCl (Trusopt 2% Ophth Soln) 0 ml EYELF BID [facility] Dutasteride (Avodart) 0.5 mg PO BEDTIME [facility] Last Admin: 09/16/17 21:58 Dose: 0.5 mg Furosemide (Lasix) 20 mg PO BIDDIURETIC [facility] Guaifenesin/Phenylephrine HCl (Robitussin Dm) 5 ml PO Q4H PRN PRN Reason: Cough Last Admin: 09/16/17 22:31 Dose: 5 ml Azithromycin 500 mg/ Sodium (Chloride) 250 mls @ 250 mls/hr IV Q24H [facility] Last Admin: 09/16/17 18:42 Dose: 250 mls/hr Latanoprost (Xalatan 0.005% Ophth Soln) 0 ml EYEBOTH BEDTIME [facility] Losartan Potassium (Cozaar) 100 mg PO DAILY [facility] Last Admin: 09/17/17 08:50 Dose: 100 mg Melatonin (Melatonin) 3 mg PO BEDTIME [facility] Last Admin: 09/16/17 21:41 Dose: 3 mg Methylprednisolone Sodium Succinate (Solu-Medrol) 125 mg IVPUSH Q8H [facility] Last Admin: 09/17/17 03:00 Dose: 125 mg Metoprolol Succinate (Toprol Xl) 25 mg PO DAILY [facility] Last Admin: 09/17/17 08:50 Dose: 25 mg Mirtazapine (Remeron) 15 mg PO BEDTIME [facility] Last Admin: 09/16/17 21:41 Dose: 15 mg Multivitamins/Minerals (Vitamins And Minerals) 1 tab PO DAILY [facility] Last Admin: 09/17/17 08:50 Dose: 1 tab Ondansetron HCl (Zofran) 4 mg IV Q4H PRN PRN Reason: Nausea/Vomiting Polyethylene Glycol (Miralax) 17 gm PO DAILY [facility] Last Admin: 09/17/17 08:48 Dose: 17 gm Potassium Chloride (Klor-Con 10) 10 meq PO DAILY [facility] Last Admin: 09/17/17 08:50 Dose: 10 meq Pseudoephedrine HCl (Sudafed 12 Hour) 120 mg PO BID PRN PRN Reason: Cough Senna/Docusate Sodium (Senna Plus) 2 tab PO BID [facility] Last Admin: 09/17/17 08:50 Dose: 2 tab Simvastatin (Zocor) 20 mg PO BEDTIME [facility] Last Admin: 09/16/17 21:41 Dose: 20 mg Sodium Chloride (Saline Flush) 10 ml FLUSH ASDIRECTED PRN PRN Reason: Keep Vein Open Last Admin: 09/17/17 03:00 Dose: 10 ml Discontinued Medications Albuterol (Proventil Neb Soln) 2.5 mg NEB Q2H [facility] Last Admin: 09/17/17 07:39 Dose: 2.5 mg Albuterol (Proventil Neb Soln) Confirm Administered Dose 2.5 mg .ROUTE .STK-MED ONE Stop: 09/16/17 12:08 Last Admin: 09/16/17 13:11 Dose: Not Given Albuterol/Ipratropium (Duoneb 3.0-0.5 Mg/3 Ml) 3 ml NEB ONETIME ONE Stop: 09/16/17 10:13 Last Admin: 09/16/17 10:27 Dose: 3 ml Benzonatate (Tessalon Perles) 100 mg PO TID [facility] Last Admin: 09/16/17 22:28 Dose: Not Given Buspirone HCl (Buspar) 7.5 mg PO BID [facility] Last Admin: 09/16/17 21:40 Dose: 7.5 mg Docusate Sodium (Colace) 100 mg PO BID PRN PRN Reason: Constipation Furosemide (Lasix) 40 mg IVPUSH NOW ONE Stop: 09/16/17 17:28 Last Admin: 09/16/17 18:06 Dose: 40 mg Furosemide (Lasix) 80 mg PO DAILY [facility] Sodium Chloride (Normal Saline) 1,000 mls @ 125 mls/hr IV ASDIRECTED [facility] Last Admin: 09/16/17 13:30 Dose: 125 mls/hr Ceftriaxone Sodium 1,000 mg/ (Sodium Chloride) 50 mls @ 100 mls/hr IV Q24H [facility] Last Admin: 09/16/17 18:04 Dose: 100 mls/hr Levofloxacin (Levaquin) 500 mg PO DAILY [facility] Methylprednisolone Sodium Succinate (Solu-Medrol) 125 mg IVPUSH ONETIME ONE Stop: 09/16/17 10:13 Last Admin: 09/16/17 10:38 Dose: 125 mg Non-Formulary Medication (Brinzolamide [Azopt 1% Ophth Susp]) 1 drop EYELF BID [facility] Last Admin: 09/16/17 21:59 Dose: Not Given Travoprost (Travatan Z 0.004% Ophth Soln) 0 ml EYEBOTH BEDTIME [facility] Last Admin: 09/16/17 22:28 Dose: Not Given Travoprost (Travatan Z 0.004% Ophth Soln) 0 ml EYEBOTH BEDTIME [facility] Travoprost (Travatan Z 0.004% Ophth Soln) 0 ml EYEBOTH BEDTIME [facility] Last Admin: 09/16/17 22:26 Dose: Not Given - Exam Quality Assessment: Supplemental Oxygen General: Alert, Moderate Distress Neck: Supple Lungs: Decreased Breath Sounds, Rales Cardiovascular: Regular Rate Extremities: Pedal Edema - Problem List & Annotations (1) COPD exacerbation SNOMED Code(s): 974432896 Code(s): J44.1 - CHRONIC OBSTRUCTIVE PULMONARY DISEASE W (ACUTE) EXACERBATION Status: Acute Current Visit: Yes (2) Palliative care patient SNOMED Code(s): 244594375 Code(s): Z51.5 - ENCOUNTER FOR PALLIATIVE CARE Status: Acute Current Visit: Yes (3) Anxiety SNOMED Code(s): 98481583 Code(s): F41.9 - ANXIETY DISORDER, UNSPECIFIED Status: Acute Current Visit: No (4) Hypertension SNOMED Code(s): 58450062 Code(s): I10 - ESSENTIAL (PRIMARY) HYPERTENSION Status: Acute Current Visit: No Qualifiers: Hypertension type: essential hypertension Qualified Code(s): I10 - Essential (primary) hypertension Annotation/Comment:: continue home medications. continues to complain of chronic cough that drives him nuts. he is on an ACEI and has been for some time. not willing to trial a switch. agrees to discuss with his PCP outpatient. (5) Supplemental oxygen dependent SNOMED Code(s): 541107291911 Code(s): Z99.81 - DEPENDENCE ON SUPPLEMENTAL OXYGEN Status: Acute Current Visit: No (6) Pneumonia, bacterial SNOMED Code(s): 37545239 Code(s): J15.9 - UNSPECIFIED BACTERIAL PNEUMONIA Status: Acute Priority: High Current Visit: No (7) ARANGO (dyspnea on exertion) SNOMED Code(s): 56053623 Code(s): R06.09 - OTHER FORMS OF DYSPNEA Status: Acute Current Visit: Yes - Problem List Review Problem List Initiated/Reviewed/Updated: Yes - My Orders Last 24 Hours: My Active Orders 09/16/17 18:00 methylPREDNISolone Sod Succ [Solu-MEDROL] 125 mg IVPUSH Q8H 09/16/17 19:00 Azithromycin [Zithromax] 500 mg Sodium Chloride 0.9% [Normal Saline] 250 ml IV Q24H 09/17/17 08:55 Chest w Cont [CT] Routine 09/17/17 09:00 Furosemide [Lasix] 20 mg PO BID 01/25/18 11:00 Albuterol [Proventil Neb Soln] 2.5 mg NEB QIDRT 09/17/17 18:00 cefTRIAXone [Rocephin] 1,000 mg IV Q24H 09/18/17 05:11 BASIC METABOLIC PANEL,BMP [CHEM] AM CBC WITH AUTO DIFF [HEME] AM PRO B-TYPE NATRIUR PEPT,BNPPRO [CHEM] DAILY - Plan Plan:: my plan is to obtain a CT scan of his chest to differentiate between COPD pneumonia or CHF. In the meantime is on antibiotics, supplemental, and I started Lasix this morning 20 mg twice a day. Watch for electrolytes in the morning.
[2017-09-17] MEDS ORDERED: Albuterol/Ipratropium 3.0-0.5 MG/3 ML Neb Soln NEB PRN (09:22)
[2017-09-17] MEDS: Furosemide 20 MG Tab PO SCH ×2 (09:30→13:13)
[2017-09-17] MEDS: Dorzolamide 2% Ophth Soln 10 ML Bottle EYELF SCH ×2 (09:34→20:06)
[2017-09-17] MEDS ORDERED: Iopamidol 755 Mg/ML 100 ML Bottle IV ONE (10:40)
[2017-09-17] MEDS: Albuterol/Ipratropium 3.0-0.5 MG/3 ML Neb Soln NEB SCH ×3 (10:51→20:02)
[2017-09-17] MEDS ORDERED: Albuterol 0.083% 2.5 MG/3 ML Neb Soln NEB SCH (11:00)
[2017-09-17] MEDS ORDERED: Tuberculin, PPD 5 Units/0.1 ML 1 ML MDV IDERM ONE (17:27)
[2017-09-17] MEDS ORDERED: cefTRIAXone 1,000 MG VIAL IV SCH (18:00)
[2017-09-17] MEDS: Azithromycin 500 MG in Sodium Chloride 0.9% 250 ML IV SCH (19:35)
[2017-09-17] MEDS: Dutasteride 0.5 MG Cap PO SCH (20:02)
[2017-09-17] MEDS: Melatonin 3 MG Tab PO SCH (20:04)
[2017-09-17] MEDS: Mirtazapine 15 MG Tab PO SCH (20:04)
[2017-09-17] MEDS: Simvastatin 20 MG Tab PO SCH (20:05)
[2017-09-17] MEDS: Acetaminophen 325 MG Tab PO SCH (20:05)
[2017-09-17] MEDS: guaiFENesin/Dextromethorphan 100-10 MG/5 ML Soln 5 ML Cup PO PRN (20:53)
[2017-09-17] MEDS ORDERED: Latanoprost 0.005% Ophth Soln 2.5 ML Bottle EYEBOTH SCH (21:00)
[2017-09-18] MEDS: methylPREDNISolone Sodium Succinate 125 MG/2 ML SDV IVPUSH SCH ×2 (02:04→09:58)
[2017-09-18] MEDS: Sodium Chloride 0.9% 10 ML Syringe FLUSH PRN (02:06)
[2017-09-18] MEDS: Albuterol/Ipratropium 3.0-0.5 MG/3 ML Neb Soln NEB SCH ×2 (07:14→10:00)
[2017-09-18] MEDS: busPIRone 15 MG Tab PO SCH (08:08)
[2017-09-18] MEDS: Furosemide 20 MG Tab PO SCH (08:08)
[2017-09-18] MEDS: amLODIPine 5 MG Tab PO SCH (08:09)
[2017-09-18] MEDS: Losartan 100 MG Tab PO SCH (08:09)
[2017-09-18] MEDS: Potassium Chloride 10 MEQ Tab.ER PO SCH (08:09)
[2017-09-18] MEDS: Dorzolamide 2% Ophth Soln 10 ML Bottle EYELF SCH (08:10)
[2017-09-18] MEDS: Metoprolol Succinate 25 MG Tab.ER PO SCH (08:11)
[2017-09-18] MEDS: Ascorbic Acid 500 MG Tab PO SCH (08:11)
[2017-09-18] MEDS: Multivitamins, Therapeutic with Minerals Tab PO SCH (08:11)
[2017-09-18] MEDS: Polyethylene Glycol 3350 Powder 17 GM Packet PO SCH (08:11)
[2017-09-18 08:12] VITALS: BP 157/79
[2017-09-18] MEDS: Budesonide 0.5 MG/2 ML Neb Susp INH SCH (08:34)
--- NOTE | 2017-09-18 08:53 | CT ---
INDICATION: Short of breath. CT CHEST WITH CONTRAST: Spiral 2.5-mm axial sections were obtained through the chest with 83 mL Isovue-370 at 1.4 mL per second, with sagittal and coronal reconstructions. Exam date 09/17/2017, compared with the previous study of . At the lower pole of the right lobe of the thyroid, there is an oval mass with central decreased density, measuring 20 x 25 mm, extending inferolaterally from the right lobe. Further evaluation with ultrasound may be warranted. The mass may be slightly increased in size compared with the previous CT scan where it measured 15 x 21 mm, compared with the 20 x 25 mm on the present study. Ultrasound may be helpful for further evaluation. Calcifications are noted in the brachiocephalic vessels and aorta. The heart appeared enlarged. Pericardial thickening is noted to a slightly greater extent than on the previous study, suggesting a small pericardial effusion or ongoing pericarditis with subsequent thickening. Centrilobular emphysematous changes are noted of moderately severe degree. New finding of bilateral pleural effusions, larger on the right and relatively small on the left, with parenchymal changes, compatible with atelectasis and possibly pneumonia with pleuritis. No definite nodular mass was seen. Mediastinal lymphadenopathy is again noted, appears fairly stable, and is nonspecific. Calcifications are noted in the abdominal aorta, celiac axis area, and proximal superior mesenteric artery. IMPRESSION: 1. Moderately severe centrilobular emphysema. 2. Bibasilar pneumonia and pleuritis right greater than left. Some of these latter findings may be on the basis of fibrosis and possibly some atelectasis. 3. Cardiomegaly with pericardial thickening, possible pericarditis, and/or pericardial effusion. 4. ASD. Total Exam DLP = 495.62 mGy-cm. MTDD
[2017-09-18] MEDS ORDERED: Levofloxacin 500 MG Tab PO SCH (11:30)
--- NOTE | 2017-09-18 13:51 | DISCH ---
DISCHARGE DATE: 09/18/2017 HOSPITAL COURSE: Mukund Garcia is an 82-year-old male, admitted with complicated shortness of breath, respiratory difficulty, and a sense of reduced well-being. No fever, duress stress, or underlying COPD. Was admitted to the hospital. Antibiotics, aggressive RT treatment, intervention and care, all complementary. Response was satisfactory. Chest CT revealed severe emphysema, bilateral pneumonia, some cardiomegaly, pericardial effusion. Chest x-ray showed similar findings. Saturation improved, oxygen levels were complementary, supplemental O2 was indicated. Discharged home on appropriate antibiotic therapy. Will go on to [facility] in [place], [place]. DISCHARGE MEDICATIONS: Please see med recon list. ADDENDUM: 30-minute care, discharge planning, and medical evaluation. /[id number] GINGER/MANI
== END 2017-09-18 10:24 | DRG 194 ==
LOC: FB.ED 10:06 → FB.MS 12:07
PROVIDERS: ADMIT Family Medicine; ATTEND Family Medicine
DX: J18.9 Pneumonia, unspecified organism (principal); I31.3 Pericardial effusion (noninflammatory); J43.8 Other emphysema; I10 Essential (primary) hypertension; Z99.81 Dependence on supplemental oxygen; F41.9 Anxiety disorder, unspecified; Z66 Do not resuscitate; Z51.5 Encounter for palliative care; R06.02 Shortness of breath; Z87.891 Personal history of nicotine dependence; Z85.828 Personal history of other malignant neoplasm of skin; M19.90 Unspecified osteoarthritis, unspecified site; N40.0 Benign prostatic hyperplasia without lower urinary tract symptoms; K59.09 Other constipation; E78.00 Pure hypercholesterolemia, unspecified; H40.9 Unspecified glaucoma; Z96.649 Presence of unspecified artificial hip joint; Z88.6 Allergy status to analgesic agent; Z79.52 Long term (current) use of systemic steroids; I51.7 Cardiomegaly
CPT/HCPCS: 36415; 71045; 80048; 84484; 85025; 94640; 99285; J2930; J7050; J7620; 71260; 83880; 86580; A9270; A9270-GY; J0456; J0696; J1940; J7030; Q9967

== ENCOUNTER 2017-09-25 08:41 | Inpatient (IN) | payer MEDICARE, MEDICAID ==
[2017-09-25] MEDS ORDERED: methylPREDNISolone Sodium Succinate 125 MG/2 ML SDV IVPUSH ONE (08:50)
[2017-09-25] MEDS ORDERED: Albuterol/Ipratropium 3.0-0.5 MG/3 ML Neb Soln NEB ONE (08:50)
--- NOTE | 2017-09-25 08:58 | EDM.PDOC ---
ED HPI GENERAL MEDICAL PROBLEM - General Chief Complaint: Respiratory Problem Stated Complaint: SOB Time Seen by Provider: 09/25/17 09:17 Source of Information: Reports: Patient, EMS History Limitations: Reports: Altered Mental Status, Physical Impairment - History of Present Illness INITIAL COMMENTS - FREE TEXT/NARRATIVE: 82 y.o.w.m with COPD came by EMS to the ED due to SOB and fever and cough. Pt is a poor historian. He was d/c'd from this hospital 3 days ago for COPD exacerbation. BP 155/72 pulse ox 66% on 6 liters as per EMS Temp ( please see nursing note) Pulse 84 RR 18 Onset Date: 09/25/17 Onset Time: 03:00 Duration: Hour(s):, Getting Worse Location: Reports: Chest Quality: Reports: Same as Previous Episode (but worse) Severity: Moderate Improves with: Reports: Rest Worsens with: Reports: Movement Context: Reports: Other (SOB) left chest/left upper abdomen Pain Score (Numeric/FACES): 3 - Related Data Allergies Allergy/AdvReac Type Severity Reaction Status Date / Time aspirin Allergy Cannot Verified 09/25/17 08:52 Remember Home Meds: Home Meds Albuterol/Ipratropium [DuoNeb 3.0-0.5 MG/3 ML] 3 ml INH QID 09/26/13 [History] Brinzolamide [Azopt 1% Ophth Susp] 1 drop EYELF BID 09/26/13 [History] Dutasteride [Avodart] 0.5 mg PO BEDTIME 09/26/13 [History] Metoprolol Succinate 25 mg PO DAILY 09/26/13 [History] Mirtazapine [Remeron] 15 mg PO BEDTIME 09/26/13 [History] Simvastatin 20 mg PO BEDTIME 09/26/13 [History] Travoprost [Travatan Z 0.004% Ophth Soln] 1 drop EYEBOTH BEDTIME 09/26/13 [ History] Potassium Chloride [Klor-Con 10] 10 meq PO DAILY #30 tab.er 09/30/13 [Rx] Furosemide [Lasix] 80 mg PO DAILY 04/10/15 [History] Losartan Potassium [Cozaar] 100 mg PO DAILY 04/10/15 [History] Acetaminophen [Tylenol] 650 mg PO BEDTIME 10/23/16 [History] Ascorbate Calcium [Vitamin C] 500 mg PO DAILY 10/23/16 [History] amLODIPine [Norvasc] 5 mg PO DAILY 10/23/16 [History] busPIRone [Buspar] 7.5 mg PO BID 10/23/16 [History] Acetaminophen [Tylenol] 650 mg PO Q4H PRN 10/24/16 [History] Multivitamin with Minerals [Multivitamins with Minerals] 1 tab PO DAILY [History] Albuterol/Ipratropium [Combivent] 2 puff INH BID PRN 06/22/17 [History] Benzonatate [Tessalon Perles] 100 mg PO TID PRN 06/22/17 [History] Docusate Sodium/Sennosides [Senna Plus] 2 tab PO BID 06/22/17 [History] Pseudoephedrine [Sudafed 12 Hour] 120 mg PO BID PRN 06/22/17 [History] Diclofenac Sodium [Voltaren 1% Gel] 4 gm TOP TID 06/23/17 [History] Budesonide [Pulmicort] 0.5 mg INH BID 09/11/17 [History] Melatonin 3 mg PO BEDTIME 09/11/17 [History] Polyethylene Glycol 3350 [MiraLAX] 17 gm PO DAILY 09/11/17 [History] Dextromethorphan/guaiFENesin [Robitussin DM] 5 ml PO BEDTIME 09/12/17 [History] Dextromethorphan/guaiFENesin [Robitussin DM] 5 ml PO Q4H PRN 09/25/17 [History] Past Medical History HEENT History: Reports: Cataract, Glaucoma Other HEENT History: both eyes done. pt wears glassess. Cardiovascular History: Reports: High Cholesterol, Hypertension Respiratory History: Reports: COPD, Pneumothorax Other Respiratory History: COLLASPSED LUNG YEARS AGO. Gastrointestinal History: Reports: Chronic Constipation Genitourinary History: Reports: BPH, Prostate Disorder Musculoskeletal History: Reports: Arthritis, Osteoarthritis Other Musculoskeletal History: GENERALIZED ARTHRITIS Psychiatric History: Reports: Anxiety Endocrine/Metabolic History: Reports: None Oncologic (Cancer) History: Reports: Other (See Below) Other Oncologic History: skin CA Dermatologic History: Reports: Other (See Below) Other Dermatologic History: Hx of skin ulcers to coccyx recently - Infectious Disease History Infectious Disease History: Reports: Chicken Pox - Past Surgical History HEENT Surgical History: Reports: Cataract Surgery Respiratory Surgical History: Reports: Other (See Below) Musculoskeletal Surgical History: Reports: Hip Replacement Social & Family History - Family History Family Medical History: Noncontributory - Tobacco Use Smoking Status *Q: Former Smoker Years of Tobacco use: 20 Packs/Tins Daily: 0.5 Used Tobacco, but Quit: Yes Month Tobacco Last Used: unknown Second Hand Smoke Exposure: No - Caffeine Use Caffeine Use: Reports: Coffee Other Caffeine Use: 3 cups a day - Alcohol Use Days Per Week of Alcohol Use: 0 Number of Drinks Per Day: 1 Total Drinks Per Week: 0 - Recreational Drug Use Recreational Drug Use: No - Living Situation & Occupation Living situation: Reports: Occupation: Retired ED ROS GENERAL - Review of Systems Review Of Systems: Unable To Obtain ED EXAM, GENERAL - Physical Exam Exam: See Below Exam Limited By: Physical Impairment General Appearance: Alert, WD/WN, Moderate Distress Eye Exam: Bilateral Eye: Normal Inspection Ears: Normal External Exam Ear Exam: Bilateral Ear: TM normal Nose: Normal Inspection, Normal Mucosa, No Blood Throat/Mouth: Normal Inspection, Normal Lips Head: Atraumatic, Normocephalic Neck: Normal Inspection, Supple, Non-Tender Respiratory/Chest: Respiratory Distress, Decreased Breath Sounds, Crackles Cardiovascular: Regular Rate, Rhythm, JVD, Gallop/S3 GI/Abdominal: Normal Bowel Sounds, Soft, Non-Tender (Male) Exam: Deferred Rectal (Males) Exam: Deferred Back Exam: Normal Inspection, Full Range of Motion Extremities: Pedal Edema Neurological: Alert, Oriented, CN II-XII Intact, Abnormal Gait Psychiatric: Normal Affect, Normal Mood Skin Exam: Warm, Dry, Intact, Normal Color, No Rash Lymphatic: No Adenopathy EKG INTERPRETATION EKG Date: 09/25/17 Time: 08:50 Rhythm: NSR Rate (Beats/Min): 83 [place]: Normal P-Wave: Present QRS: Normal ST-T: Normal QT: Normal Comparison: NA - No Prior EKG Course - Vital Signs Text/Narrative:: 82 y.o.w.m with COPD came by EMS to the ED due to SOB and fever and cough. Pt is a poor historian. He was d/c'd from this hospital 3 days ago for COPD exacerbation. BP 155/72 pulse ox 66% on 6 liters as per EMS Temp ( please see nursing note) Pulse 84 RR 18 PE: 82 y.o.w.m in resp distress Imaging: Infiltrate RLL of lung, COPD Labs: WBC 20K BUN 25 cr 1.1 Na 145 K 3.8 Lactic acid 1.0 BNP 2008 Troponin 1.090 Impression: RLL Pneumonia, elevated Troponin, COPD, CHF Tx: Levoquin, Duoneb, Solumedrol 9.50 am Consultation: Dr. Barahona, Hospitalist: Accepted the pt for admission. Plan: Admit to ICU Last Recorded V/S: Last Vital Signs Temp 35.8 C 09/25/17 19:10 Pulse 16 L 09/25/17 19:32 Resp 0 L 09/25/17 19:32 BP 89/50 L 09/25/17 19:32 Pulse Ox 0 L 09/25/17 19:32 - Orders/Labs/Meds Labs: Laboratory Tests 09/25/17 09/25/17 09/25/17 Range/Units 09:00 09:00 09:00 WBC 20.2 H (4.5-12.0) X10-3/uL RBC 4.59 (4.30-5.75) x10(6)uL Hgb 12.8 (11.5-15.5) g/dL Hct 39.5 (30.0-51.3) % MCV 86.2 (80-96) fL MCH 28.0 (27.7-33.6) pg MCHC 32.4 (32.2-35.4) g/dL RDW 15.4 (11.5-15.5) % Plt Count 163 (125-369) X10(3)uL MPV 8.3 (7.4-10.4) fL Add Manual Diff Yes Neutrophils % (Manual) 83 H (46-82) % Lymphocytes % (Manual) 14 (13-37) % Monocytes % (Manual) 3 L (4-12) % PT 10.3 (8.7-11.1) INR 1.02 (0.89-1.13) Sodium 145 (135-145) mmol/L Potassium 4.0 (3.5-5.3) mmol/L Chloride 102 (100-110) mmol/L Carbon Dioxide 43 H* (21-32) mmol/L BUN 25 H D (7-18) mg/dL Creatinine 1.1 (0.70-1.30) mg/dL Est Cr Clr Drug Dosing TNP Estimated GFR (MDRD) > 60 (>60) BUN/Creatinine Ratio 22.7 H (9-20) Glucose 110 (80-116) mg/dL Lactic Acid (0.4-2.2) mmol/L Calcium 9.2 (8.6-10.2) mg/dL Troponin I (<0.017-0.056) ng/mL NT-Pro-B Natriuret Pep (<=450) pg/mL 09/25/17 09/25/17 09/25/17 Range/Units 09:00 09:00 10:05 WBC (4.5-12.0) X10-3/uL RBC (4.30-5.75) x10(6)uL Hgb (11.5-15.5) g/dL Hct (30.0-51.3) % MCV (80-96) fL MCH (27.7-33.6) pg MCHC (32.2-35.4) g/dL RDW (11.5-15.5) % Plt Count (125-369) X10(3)uL MPV (7.4-10.4) fL Add Manual Diff Neutrophils % (Manual) (46-82) % Lymphocytes % (Manual) (13-37) % Monocytes % (Manual) (4-12) % PT (8.7-11.1) INR (0.89-1.13) Sodium (135-145) mmol/L Potassium (3.5-5.3) mmol/L Chloride (100-110) mmol/L Carbon Dioxide (21-32) mmol/L BUN (7-18) mg/dL Creatinine (0.70-1.30) mg/dL Est Cr Clr Drug Dosing Estimated GFR (MDRD) (>60) BUN/Creatinine Ratio (9-20) Glucose (80-116) mg/dL Lactic Acid 1.0 (0.4-2.2) mmol/L Calcium (8.6-10.2) mg/dL Troponin I 0.090 H* (<0.017-0.056) ng/mL NT-Pro-B Natriuret Pep 2008 H* (<=450) pg/mL Meds: Medications Discontinued Medications Generic Name Dose Route Start Last Admin Trade Name Freq PRN Reason Stop Dose Admin Albuterol/Ipratropium 3 ml 09/25/17 08:50 09/25/17 09:01 Duoneb 3.0-0.5 Mg/3 Ml NEB 09/25/17 08:51 3 ml ONETIME ONE Administration Albuterol/Ipratropium 3 ml 09/25/17 11:00 09/25/17 15:08 Duoneb 3.0-0.5 Mg/3 Ml NEB 3 ml QIDRT MARGARET Administration Diltiazem HCl 20 mg 09/25/17 19:08 09/25/17 20:00 Diltiazem IVPUSH 09/25/17 19:09 Not Given ONETIME ONE Furosemide 40 mg 09/25/17 11:00 09/25/17 13:04 Lasix IVPUSH 40 mg DAILY MARGARET Administration Haloperidol Lactate 5 mg 09/25/17 15:06 Haldol IVPUSH Q8H PRN Agitation Haloperidol Lactate 5 mg 09/25/17 15:07 09/25/17 15:17 Haldol IVPUSH 5 mg STAT PRN Administration Agitation Levofloxacin/Dextrose 500 mg/ 100 mls @ 100 mls/hr 09/25/17 09:47 09/25/17 10 :09 Premix IV 09/25/17 10:46 100 mls/hr ONETIME ONE Administration Levofloxacin/Dextrose 750 mg/ 150 mls @ 100 mls/hr 09/26/17 09:00 Premix IV Q24H MARGARET Vancomycin HCl 1,000 mg/ 500 mls @ 333 mls/hr 09/25/17 13:00 09/25/17 13:07 Vancomycin HCl 500 mg/ Sodium IV 333 mls/hr Chloride Q12H MARGARET Administration Lorazepam 0.5 mg 09/25/17 10:51 09/25/17 11:23 Ativan IVPUSH 0.5 mg Q6H PRN Administration Anxiety Lorazepam 0.5 mg 09/25/17 12:26 09/25/17 12:35 Ativan IVPUSH 09/25/17 12:27 0.5 mg ONETIME ONE Administration Lorazepam 1 mg 09/25/17 12:27 Ativan IVPUSH Q6H PRN Agitation Methylprednisolone Sodium Succinate 125 mg 09/25/17 08:50 09/25/17 09:13 Solu-Medrol IVPUSH 09/25/17 08:51 125 mg ONETIME ONE Administration Methylprednisolone Sodium Succinate 125 mg 09/25/17 11:00 09/25/17 18:39 Solu-Medrol IVPUSH 125 mg Q8H MARGARET Administration Morphine Sulfate 2 mg 09/25/17 10:46 09/25/17 16:04 Morphine IVPUSH 2 mg Q2H PRN Administration Pain (severe 7-10) Morphine Sulfate 2 mg 09/25/17 16:53 09/25/17 18:40 Morphine IVPUSH 2 mg Q1H PRN Administration Other Sodium Chloride 10 ml 09/25/17 11:00 Saline Flush FLUSH ASDIRECTED PRN Other Vancomycin HCl 0 dose 09/25/17 12:45 Pharmacy To Dose - Vancomycin .XX ASDIRECTED MARGARET Departure - Departure Time of Disposition: 20:00 Disposition: Admitted As Inpatient 66 Condition: Poor Clinical Impression: Pneumonia - Discharge Information
[2017-09-25] MEDS ORDERED: Levofloxacin/Dextrose 5%-Water 500 MG in Premix Bag 1 BAG IV ONE (09:47)
[2017-09-25] MEDS ORDERED: LORazepam 2 MG/ML MDV IVPUSH PRN ×2 (10:51→12:27)
[2017-09-25] MEDS ORDERED: Furosemide 40 MG/4 ML VIAL IVPUSH SCH (11:00)
[2017-09-25] MEDS ORDERED: Sodium Chloride 0.9% 10 ML Syringe FLUSH PRN (11:00)
--- NOTE | 2017-09-25 11:00 | PCM.HP ---
H&P History of Present Illness - General Date of Service: 09/25/17 Admit Problem/Dx: Admission Diagnosis/Problem Admission Diagnosis/Problem Respiratory failure Source of Information: EMS Notes Reviewed, Old Records History Limitations: Reports: Altered Mental Status, Respiratory Distress - History of Present Illness Initial Comments - Free Text/Narative: 82-year-old male from long-term he was brought in because of respiratory distress,anxiety,difficulty breathing. He's been in and out of the hospital last 3 weeks because of COPD exacerbation. He denies any chest pain fever or chills. He has a history of CHF, anxiety, COPD which have been difficult to control necessitating a move to the long-term last week and a half left chest/left upper abdomen Pain Score (Numeric/FACES): 3 - Related Data Allergies/Adverse Reactions: Allergies Allergy/AdvReac Type Severity Reaction Status Date / Time aspirin Allergy Cannot Verified 09/25/17 08:52 Remember Home Medications: Home Meds Albuterol/Ipratropium [DuoNeb 3.0-0.5 MG/3 ML] 3 ml INH QID 09/26/13 [History] Brinzolamide [Azopt 1% Ophth Susp] 1 drop EYELF BID 09/26/13 [History] Dutasteride [Avodart] 0.5 mg PO BEDTIME 09/26/13 [History] Metoprolol Succinate 25 mg PO DAILY 09/26/13 [History] Mirtazapine [Remeron] 15 mg PO BEDTIME 09/26/13 [History] Simvastatin 20 mg PO BEDTIME 09/26/13 [History] Travoprost [Travatan Z 0.004% Ophth Soln] 1 drop EYEBOTH BEDTIME 09/26/13 [ History] Potassium Chloride [Klor-Con 10] 10 meq PO DAILY #30 tab.er 09/30/13 [Rx] Furosemide [Lasix] 80 mg PO DAILY 04/10/15 [History] Losartan Potassium [Cozaar] 100 mg PO DAILY 04/10/15 [History] Acetaminophen [Tylenol] 650 mg PO BEDTIME 10/23/16 [History] Ascorbate Calcium [Vitamin C] 500 mg PO DAILY 10/23/16 [History] amLODIPine [Norvasc] 5 mg PO DAILY 10/23/16 [History] busPIRone [Buspar] 7.5 mg PO BID 10/23/16 [History] Acetaminophen [Tylenol] 650 mg PO Q4H PRN 10/24/16 [History] Multivitamin with Minerals [Multivitamins with Minerals] 1 tab PO DAILY [History] Albuterol/Ipratropium [Combivent] 2 puff INH BID PRN 06/22/17 [History] Benzonatate [Tessalon Perles] 100 mg PO TID PRN 06/22/17 [History] Docusate Sodium/Sennosides [Senna Plus] 2 tab PO BID 06/22/17 [History] Pseudoephedrine [Sudafed 12 Hour] 120 mg PO BID PRN 06/22/17 [History] Diclofenac Sodium [Voltaren 1% Gel] 4 gm TOP TID 06/23/17 [History] Budesonide [Pulmicort] 0.5 mg INH BID 09/11/17 [History] Melatonin 3 mg PO BEDTIME 09/11/17 [History] Polyethylene Glycol 3350 [MiraLAX] 17 gm PO DAILY 09/11/17 [History] Dextromethorphan/guaiFENesin [Robitussin DM] 5 ml PO BEDTIME 09/12/17 [History] Dextromethorphan/guaiFENesin [Robitussin DM] 5 ml PO Q4H PRN 09/25/17 [History] Past Medical History HEENT History: Reports: Cataract, Glaucoma Other HEENT History: both eyes done. pt wears glassess. Cardiovascular History: Reports: High Cholesterol, Hypertension Respiratory History: Reports: COPD, Pneumothorax Other Respiratory History: COLLASPSED LUNG YEARS AGO. Gastrointestinal History: Reports: Chronic Constipation Genitourinary History: Reports: BPH, Prostate Disorder Musculoskeletal History: Reports: Arthritis, Osteoarthritis Other Musculoskeletal History: GENERALIZED ARTHRITIS Psychiatric History: Reports: Anxiety Endocrine/Metabolic History: Reports: None Oncologic (Cancer) History: Reports: Other (See Below) Other Oncologic History: skin CA Dermatologic History: Reports: Other (See Below) Other Dermatologic History: Hx of skin ulcers to coccyx recently - Infectious Disease History Infectious Disease History: Reports: Chicken Pox - Past Surgical History HEENT Surgical History: Reports: Cataract Surgery Respiratory Surgical History: Reports: Other (See Below) Musculoskeletal Surgical History: Reports: Hip Replacement Social & Family History - Family History Family Medical History: Noncontributory - Tobacco Use Smoking Status *Q: Former Smoker Years of Tobacco use: 20 Packs/Tins Daily: 0.5 Used Tobacco, but Quit: Yes Month Tobacco Last Used: unknown Second Hand Smoke Exposure: No - Caffeine Use Caffeine Use: Reports: Coffee Other Caffeine Use: 3 cups a day - Alcohol Use Days Per Week of Alcohol Use: 0 Number of Drinks Per Day: 1 Total Drinks Per Week: 0 - Recreational Drug Use Recreational Drug Use: No - Living Situation & Occupation Living situation: Reports: Occupation: Retired H&P Review of Systems - Review of Systems: Review Of Systems: ROS reveals no pertinent complaints other than HPI. Exam - Exam Exam: See Below - Vital Signs Vital Signs: Last Vital Signs Temp 98.6 F 09/25/17 08:45 Pulse 88 09/25/17 09:17 Resp 38 H 09/25/17 08:45 BP 161/71 H 09/25/17 08:45 Pulse Ox 93 L 09/25/17 09:17 Weight: 95.708 kg - Exam Quality Assessment: Supplemental Oxygen General: Moderate Distress HEENT: PERRLA, Hearing Intact, Mucosa Moist & [place], Nares Patent, Normal Nasal Septum, Posterior Pharynx Clear, Conjunctiva Clear, EOMI, EACs Clear, TMs Clear Neck: Supple, Trachea Midline, 2 Lungs: Decreased Breath Sounds, Crackles, Rales Cardiovascular: Regular Rate, Regular Rhythm GI/Abdominal Exam: Normal Bowel Sounds, Soft, Non-Tender, No Organomegaly, No Distention, No Abnormal Bruit, No Mass, Pelvis Stable (Male) Exam: No Hernia, Normal Inspection, Normal Prostate, Circumcised Rectal (Males) Exam: Normal Exam, Normal Rectal Tone, Prostate Normal Back Exam: Normal Inspection, Full Range of Motion, NT Extremities: Pedal Edema Skin: Warm, Dry, Intact Neurological: Cranial Nerves Intact, Reflexes Equal Bilateral Neuro Extensive - Mental Status: Alert, Oriented x3, Normal Mood/Affect, Normal Cognition Neuro Extensive - Motor, Sensory, Reflexes: CN II-XII Intact, Normal Gait, Normal Reflexes Psychiatric: Alert, Normal Affect, Normal Mood - Patient Data Result Diagrams: 09/25/17 09:00 09/25/17 09:00 *Q Meaningful Use (ADM) - VTE *Q VTE Criteria *Q: - Stroke *Q Stroke Criteria *Q: - AMI *Q AMI Criteria *Q: - Problem List (1) Healthcare associated bacterial pneumonia SNOMED Code(s): 457891407 ICD Code: J15.9 - UNSPECIFIED BACTERIAL PNEUMONIA Status: Acute Current Visit: Yes (2) COPD, Severe chronic obstructive pulmonary disease SNOMED Code(s): 721681374 ICD Code: J44.9 - CHRONIC OBSTRUCTIVE PULMONARY DISEASE, UNSPECIFIED Status : Chronic Current Visit: No (3) Anxiety SNOMED Code(s): 25967078 ICD Code: F41.9 - ANXIETY DISORDER, UNSPECIFIED Status: Acute Current Visit: No (4) Hypertension SNOMED Code(s): 64665934 ICD Code: I10 - ESSENTIAL (PRIMARY) HYPERTENSION Status: Chronic Current Visit: No Qualifiers: Hypertension type: essential hypertension Qualified Code(s): I10 - Essential (primary) hypertension (5) Palliative care patient SNOMED Code(s): 793181111 ICD Code: Z51.5 - ENCOUNTER FOR PALLIATIVE CARE Status: Acute Current Visit: No (6) Supplemental oxygen dependent SNOMED Code(s): 268795898210 ICD Code: Z99.81 - DEPENDENCE ON SUPPLEMENTAL OXYGEN Status: Acute Current Visit: No (7) Hx of congestive heart failure SNOMED Code(s): 903801552 ICD Code: Z86.79 - PERSONAL HISTORY OF OTHER DISEASES OF THE CIRCULATORY SYSTEM Status: Chronic Priority: High Current Visit: No Problem List Initiated/Reviewed/Updated: Yes Orders Last 24hrs: Active Orders 24 hr Category Date Time Status LORazepam [Ativan] Med 09/25/17 10:51 Active 0.5 mg IVPUSH Q6H PRN Medication Orders Albuterol/Ipratropium (Duoneb 3.0-0.5 Mg/3 Ml) 3 ml NEB QIDRT MARGARET Furosemide (Lasix) 40 mg IVPUSH DAILY MARGARET Vancomycin HCl 1,000 mg/ (Sodium Chloride) 250 mls @ 167 mls/hr IV Q12H MARGARET Levofloxacin/Dextrose 750 mg/ (Premix) 150 mls @ 100 mls/hr IV Q24H MARGARET Lorazepam (Ativan) 0.5 mg IVPUSH Q6H PRN PRN Reason: Anxiety Methylprednisolone Sodium Succinate (Solu-Medrol) 125 mg IVPUSH Q8H MARGARET Morphine Sulfate (Morphine) 2 mg IVPUSH Q2H PRN PRN Reason: Pain (severe 7-10) Assessment/Plan Comment:: Chest x-ray revealed a huge right pleural effusion and infiltrate, is positive CHF as well. We'll admit him for COPD exacerbation healthcare associated pneumonia and CHF. Patient states that he does not want to be resuscitated or intubated. We'll start triple antibiotic therapy, so Medrol and Lasix. Blood cultures influenza testing will be ordered and a repeat CBC CMP and BMP will be done in the morning.
[2017-09-25] MEDS: Morphine 2 MG/ML Syringe IVPUSH PRN ×4 (11:24→16:04)
[2017-09-25] MEDS: Albuterol/Ipratropium 3.0-0.5 MG/3 ML Neb Soln NEB SCH ×2 (11:26→15:08)
[2017-09-25] MEDS ORDERED: LORazepam 2 MG/ML MDV IVPUSH ONE (12:26)
[2017-09-25] MEDS: methylPREDNISolone Sodium Succinate 125 MG/2 ML SDV IVPUSH SCH ×2 (13:04→18:39)
--- NOTE | 2017-09-25 13:53 | CR ---
INDICATION: Short of breath. CHEST: An AP portable upright view of the chest, 09/25/2017, compared with and 09/11/2017, again revealed the heart to be enlarged, the aorta tortuous with calcification in the arch. Overlying EKG leads are now seen. Pleuroparenchymal changes at the right lung base have increased in severity, compatible with pneumonia and pleuritis, and extend into the mid lung field on the right. The degree of pulmonary vascular congestion is minimal. A mild or mild chronic CHF may be present. Report was given by phone to Dr. Matta at 0945 hours, 09/25/2017. DELIAD
[2017-09-25] MEDS ORDERED: Haloperidol Lactate 5 MG/ML SDV IVPUSH PRN ×2 (15:06→15:07)
[2017-09-25] MEDS ORDERED: Morphine 2 MG/ML Syringe IVPUSH PRN (16:53)
[2017-09-25] MEDS: Diltiazem 25 MG/5 ML SDV IVPUSH ONE ×2 (19:23→20:00)
[2017-09-25 21:19] VITALS: BP 89/50
[2017-09-26] MEDS ORDERED: Levofloxacin/Dextrose 5%-Water 750 MG in Premix Bag 1 BAG IV SCH (09:00)
--- NOTE | 2017-09-26 11:03 | DISCH ---
DISCHARGE DATE: 09/25/2017 REASON FOR ADMISSION: 1. Respiratory failure. 2. Hospital-acquired pneumonia. 3. CHF. 4. COPD exacerbation, end-stage. REASON FOR : 1. Acute respiratory failure, multifactorial, as above. 2. Atrial fibrillation. PROCEDURES: None. BRIEF HISTORY AND HOSPITAL COURSE: This is an 82-year-old male who was admitted with worsening shortness of breath after recent several hospitalizations for COPD and CHF. He did not want resuscitation or intubation. Initially, oxygenation, antibiotics, and Lasix were given; however, his respiratory status continued to deteriorate. A BiPAP was given, but he was unable to tolerate the BiPAP. A decision was made to deescalate care and he was given some Haldol, lorazepam, morphine for comfort. Around 7 o'clock, he developed respiratory distress and rapid ventricular response, atrial fibrillation. From there, he went into respiratory failure and . December God rest his soul in eternal peace. I spent less than 30 minutes in the dictation of this discharge summary. /[id number] MEERA/MODL
== END 2017-09-25 22:20 | disposition expired | DRG 190 ==
LOC: FB.ED 08:41 → FB.ICU 10:48
PROVIDERS: ADMIT Family Medicine; ATTEND Family Medicine
DX: J44.0 Chronic obstructive pulmonary disease with (acute) lower respiratory infection (principal); J18.9 Pneumonia, unspecified organism; J80 Acute respiratory distress syndrome; J44.1 Chronic obstructive pulmonary disease with (acute) exacerbation; I11.0 Hypertensive heart disease with heart failure; I50.9 Heart failure, unspecified; Z51.5 Encounter for palliative care; Z66 Do not resuscitate; Z87.891 Personal history of nicotine dependence; R74.8 Abnormal levels of other serum enzymes; R50.9 Fever, unspecified; R06.02 Shortness of breath; R05 Cough; Z99.81 Dependence on supplemental oxygen; Y95 Nosocomial condition; I48.91 Unspecified atrial fibrillation; F41.9 Anxiety disorder, unspecified; E78.00 Pure hypercholesterolemia, unspecified; H40.9 Unspecified glaucoma; K59.09 Other constipation; N40.0 Benign prostatic hyperplasia without lower urinary tract symptoms; M19.90 Unspecified osteoarthritis, unspecified site; Z85.828 Personal history of other malignant neoplasm of skin; Z96.649 Presence of unspecified artificial hip joint; Z88.6 Allergy status to analgesic agent
CPT/HCPCS: 36415; 36600; 51702; 71045; 80048; 82803; 83605; 83880; 84484; 85025; 85610; 87040; 87804; 93005; 94640; 94660; 96365; 96375; 99285; J1630; J1940; J1956; J2060; J2270; J2930; J3370; J3490; J7040; J7620